=== PATIENT | male | born 1945 | race Caucasian/White ===

== ENCOUNTER → 2016-09-03 | Outpatient (CLI) | payer OTHER ==
[~2016-09-03] MED LIST: ALBU0.084 NEB; AMLO10CA PO; ASPI-231 PO; DOCU-94 PO; DUTA0.5C11 PO; FURO20TA3 PO; HYDR12.56 PO; NOR5T PO; NYS15PW TOP; POTA-167 PO; WARF3TAB20 PO; [UNRECOGNIZED DRUG - CODE] PO
[2016-09-03 09:45] LABS: Basophils # (auto) 0 uL; Basophils % (auto) 0.4 % (0.0-2.0); Eosinophils # (auto) 0.2 uL; Eosinophils % (auto) 3.3 % (0.0-7.0); Hemoglobin 14.1 g/dL (13.5-17.5); Lymphocytes # (auto) 1.1 uL; Lymphocytes % (auto) 14.6 % (10.0-50.0); Mean Corpuscular Hemoglobin 32.8 pg (28.0-32.0); Mean Corpuscular Hgb Conc. 32.8 g/dL (32.0-36.0); Mean Corpuscular Volume 99.7 fL (80.0-100.0); Mean Platelet Volume 7.2 fL (7.4-10.4); Monocytes # (auto) 0.6 uL; Monocytes % (auto) 7.6 % (0.0-12.0); Neutrophils # (auto) 5.4 uL; Neutrophils % (auto) 74.1 % (37.0-80.0); Platelet Count (auto) 232 10^3/uL (140-450); Red Cell Distribution Width 14.3 % (11.6-16.0); Urine Bilirubin Negative (Negative); Urine Blood Negative /uL (Negative); Urine Color Yellow (Yellow); Urine Glucose Normal (Normal); Urine Ketone Negative (Negative); Urine Nitrite Negative (Negative); Urine RBC <1 /hpf (0 - 3); Urine Squamous Epithelial Cell FEW /hpf (<5); Urine Urobilinogen Normal (Negative); White Blood Cell 7.4 10^3/uL (4.4-10.8)
[2016-09-03 10:09] LABS: Albumin 4.1 g/dL (3.4-5.0); BUN/Creatinine Ratio 18.2; Bilirubin, Total 0.7 mg/dL (0.2-1.0); Calcium 8.6 mg/dL (8.5-10.1); Potassium 4.8 mmol/L (3.5-5.1); Total Protein 7.3 g/dL (6.4-8.2)
== END | disposition home or self-care (01) ==
LOC: LAB 08:02
PROVIDERS: ATTEND Internal Medicine
DX: E78.00 Pure hypercholesterolemia, unspecified (principal); N18.3 Chronic kidney disease, stage 3 (moderate); I10 Essential (primary) hypertension; Z00.00 Encounter for general adult medical examination without abnormal findings
CPT/HCPCS: 36415; 80053; 80061; 81001; 83615; 84153; 84443; 85025; 85049

== ENCOUNTER → 2016-09-09 | Outpatient (CLI) | payer OTHER | END | disposition home or self-care (01) | LOC: LAB 08:53 | PROVIDERS: ATTEND Family Medicine | DX: E78.00 Pure hypercholesterolemia, unspecified (principal); N18.3 Chronic kidney disease, stage 3 (moderate); I10 Essential (primary) hypertension; Z00.00 Encounter for general adult medical examination without abnormal findings | CPT/HCPCS: 82270 ==

== ENCOUNTER → 2017-01-09 | Outpatient (CLI) | payer OTHER ==
[2017-01-09 08:24] LABS: Basophils # (auto) 0 uL; Basophils % (auto) 0.4 % (0.0-2.0); Eosinophils # (auto) 0.3 uL; Hematocrit 40.8 % (41.0-53.0); Hemoglobin 13.9 g/dL (13.5-17.5); Lymphocytes # (auto) 1.1 uL; Lymphocytes % (auto) 16.8 % (10.0-50.0); Mean Corpuscular Hemoglobin 33.6 pg (28.0-32.0); Mean Corpuscular Hgb Conc. 34.1 g/dL (32.0-36.0); Mean Corpuscular Volume 98.3 fL (80.0-100.0); Monocytes # (auto) 0.5 uL; Monocytes % (auto) 8.1 % (0.0-12.0); Neutrophils # (auto) 4.5 uL; Neutrophils % (auto) 69.7 % (37.0-80.0); Platelet Count (auto) 213 10^3/uL (140-450); Red Cell Distribution Width 13.9 % (11.6-16.0); White Blood Cell 6.4 10^3/uL (4.4-10.8)
[2017-01-09 08:33] LABS: Urine Bilirubin Negative (Negative); Urine Blood Negative /uL (Negative); Urine Color Yellow (Yellow); Urine Glucose Normal (Normal); Urine Ketone Negative (Negative); Urine Nitrite Negative (Negative); Urine RBC <1 /hpf (0 - 3); Urine Urobilinogen Normal (Negative); Urine pH 5.5 (5.0-8.0)
[2017-01-09 09:07] LABS: BUN/Creatinine Ratio 26.5; Bilirubin, Total 0.7 mg/dL (0.2-1.0); Calcium 8.6 mg/dL (8.5-10.1); Potassium 4.5 mmol/L (3.5-5.1); Total Protein 7.2 g/dL (6.4-8.2)
== END | disposition home or self-care (01) ==
LOC: LAB 07:28
DX: E11.21 Type 2 diabetes mellitus with diabetic nephropathy (principal); E11.319 Type 2 diabetes mellitus with unspecified diabetic retinopathy without macular edema; Z12.5 Encounter for screening for malignant neoplasm of prostate; Z12.11 Encounter for screening for malignant neoplasm of colon
CPT/HCPCS: 36415; 80053; 80061; 81001; 82043; 83036; 84153; 84443; 85025

== ENCOUNTER → 2017-01-15 | Outpatient (CLI) | payer OTHER ==
[~2017-01-15] MED LIST changes: +HYDR-4663 PO; -NOR5T PO
== END | disposition home or self-care (01) ==
LOC: LAB 15:50
DX: E11.21 Type 2 diabetes mellitus with diabetic nephropathy (principal); E11.319 Type 2 diabetes mellitus with unspecified diabetic retinopathy without macular edema; Z12.5 Encounter for screening for malignant neoplasm of prostate; Z12.11 Encounter for screening for malignant neoplasm of colon
CPT/HCPCS: 82270

== ENCOUNTER → 2017-02-12 | Outpatient (CLI) | payer OTHER | END | disposition home or self-care (01) | LOC: XY 08:57 | PROVIDERS: ATTEND Internal Medicine Pulmonary Disease | DX: I27.2 Other secondary pulmonary hypertension (principal); I70.0 Atherosclerosis of aorta; I51.7 Cardiomegaly; R07.9 Chest pain, unspecified; R06.02 Shortness of breath; Z95.2 Presence of prosthetic heart valve | CPT/HCPCS: 71010; 78582; A9540; A9558 ==

== ENCOUNTER → 2017-02-20 | Outpatient (CLI) | payer OTHER ==
[~2017-02-20] MED LIST changes: +ALBUTEROL SULF 2.5 MG/0.5ML(0.5%) NEB SOLN ONE
== END | disposition home or self-care (01) ==
LOC: RT 08:27
PROVIDERS: ATTEND Internal Medicine Pulmonary Disease
DX: R06.02 Shortness of breath (principal)
CPT/HCPCS: 94060; 94640

== ENCOUNTER → 2017-03-10 | Outpatient (CLI) | payer OTHER ==
[~2017-03-10] MED LIST changes: -ALBUTEROL SULF 2.5 MG/0.5ML(0.5%) NEB SOLN ONE
[2017-03-10 09:35] LABS: Allen Test Yes; Base Excess -2.2 mmol/L (-2.0-2.0); Blood 02Sat 94.5 % (96-100); Blood COHb 0.5 % (0.5-1.5); Blood MetHb 0.3 % (0.0-1.5); HCO3 21.2 mmol/L (22-26.0); HHb 5.5 % (0.0-5.0); MODE RA; O2Hb 93.7 % (94.0-97.0); PCO2 32.4 mmHg (35.0-45.0); PCO2(T) 32.4 mmHg (35.0-45.0); PO2 75.3 mmHg (80.0-100.0); PO2(T) 75.3 mmHg (80.0-100.0); Sample Type Arterial; pH 7.433 (7.350-7.450)
== END | disposition home or self-care (01) ==
LOC: RT 09:05
PROVIDERS: ATTEND Internal Medicine Pulmonary Disease
DX: J44.9 Chronic obstructive pulmonary disease, unspecified (principal)
CPT/HCPCS: 36600; 82805

== ENCOUNTER → 2018-05-01 | Outpatient (CLI) | payer OTHER ==
[~2018-05-01] MED LIST changes: -HYDR-4663 PO; +HYDR-4683 PO
[2018-05-01 08:10] LABS: Urine WBC None Seen /hpf (0 - 3)
[2018-05-01 08:27] LABS: Basophils # (auto) 0 uL; Eosinophils # (auto) 0.2 uL; Hemoglobin 14.3 g/dL (13.5-17.5); Lymphocytes # (auto) 0.4 uL; Monocytes # (auto) 0.4 uL; Neutrophils # (auto) 4.5 uL; Nucleated Red Blood Cells % 0.1 %; Urine Bacteria NONE SEEN /hpf (None Seen); Urine Blood Negative /uL (Negative)
[2018-05-01 08:29] LABS: Basophils % (auto) 0.7 % (0.0-2.0); Lymphocytes % (auto) 6.9 % (10.0-50.0); Mean Corpuscular Volume 102.8 fL (80.0-100.0); Monocytes % (auto) 7.8 % (0.0-12.0); Neutrophils % (auto) 80.6 % (37.0-80.0); Platelet Count (auto) 165 10^3/uL (140-450); Red Blood Cells 4.09 10^6/uL (4.5-5.90); Red Cell Distribution Width 14.1 % (11.8-14.3); White Blood Cell 5.6 10^3/uL (4.4-10.8)
[2018-05-01 08:34] LABS: Albumin 3.9 g/dL (3.4-5.0); BUN/Creatinine Ratio 27.4; Bilirubin, Total 0.9 mg/dL (0.2-1.0); Calcium 8.7 mg/dL (8.5-10.1); Potassium 4.8 mmol/L (3.5-5.1); Total Protein 7.9 g/dL (6.4-8.2)
[2018-05-01 09:31] LABS: Free T4 (Free Thyroxine) 1.24 ng/dL (0.89-1.76)
[2018-05-01 09:32] LABS: Free T3 2.84 pg/mL (2.3-4.2); Prostate Specific Antigen 0.12 ng/mL (0.0-4.0)
== END | disposition home or self-care (01) ==
LOC: LAB 07:48
PROVIDERS: ATTEND Family Medicine
DX: E78.5 Hyperlipidemia, unspecified (principal); I50.9 Heart failure, unspecified; E55.9 Vitamin D deficiency, unspecified
CPT/HCPCS: 36415; 80053; 80061; 81001; 82306; 84153; 84439; 84443; 84481; 85025

== ENCOUNTER → 2018-05-07 | Outpatient (CLI) | payer OTHER ==
[2018-05-07 15:53] LABS: Alcohol, Urine < 3.0 mg/dL (0-5); Amphetamine Screen, Urine NEGATIVE (NEGATIVE); Barbiturate Scree,Urine NEGATIVE (NEGATIVE); Benzodiazephine Screen, Urine NEGATIVE (NEGATIVE); Cannabinoid Screen, Urine NEGATIVE (NEGATIVE); Cocaine Screen, Urine NEGATIVE (NEGATIVE); Opiate Scree,Urine NEGATIVE (NEGATIVE); Phencyclidine Screen, Urine NEGATIVE (NEGATIVE)
== END | disposition home or self-care (01) ==
LOC: LAB 14:28
PROVIDERS: ATTEND Nurse Practitioner
DX: Z02.83 Encounter for blood-alcohol and blood-drug test (principal); I50.9 Heart failure, unspecified; J44.9 Chronic obstructive pulmonary disease, unspecified
CPT/HCPCS: 80307

== ENCOUNTER → 2018-07-24 | Outpatient (CLI) | payer OTHER, MEDICARE ==
[2018-07-24 08:50] LABS: Eosinophils # (auto) 0.2 uL; Hemoglobin 14.1 g/dL (13.5-17.5); Lymphocytes # (auto) 0.7 uL; Monocytes # (auto) 0.5 uL
[2018-07-24 08:53] LABS: Basophils # (auto) 0 uL; Basophils % (auto) 0.8 % (0.0-2.0); Eosinophils % (auto) 3.8 % (0.0-7.0); Hematocrit 41.7 % (41.0-53.0); Lymphocytes % (auto) 10.8 % (10.0-50.0); Mean Corpuscular Hemoglobin 35.1 pg (28.0-32.0); Mean Corpuscular Hgb Conc. 33.8 g/dL (32.0-36.0); Monocytes % (auto) 8.1 % (0.0-12.0); Neutrophils # (auto) 4.7 uL; Neutrophils % (auto) 76.5 % (37.0-80.0); Platelet Count (auto) 139 10^3/uL (140-450); Red Blood Cells 4.01 10^6/uL (4.5-5.90); White Blood Cell 6.1 10^3/uL (4.4-10.8)
[2018-07-24 09:51] LABS: Calcium 8.3 mg/dL (8.5-10.1); Potassium 4.7 mmol/L (3.5-5.1)
[2018-07-24 09:57] LABS: Albumin 3.9 g/dL (3.4-5.0); BUN/Creatinine Ratio 18.4; Bilirubin, Total 0.9 mg/dL (0.2-1.0); Total Protein 7.3 g/dL (6.4-8.2); Uric Acid 8.7 mg/dL (3.5-7.2)
== END | disposition home or self-care (01) ==
LOC: LAB 07:51
PROVIDERS: ATTEND Nurse Practitioner
DX: E78.5 Hyperlipidemia, unspecified (principal)
CPT/HCPCS: 36415; 80053; 80061; 82270; 83036; 84153; 84550; 85025; 85652

== ENCOUNTER → 2018-11-02 | Outpatient (CLI) | payer OTHER, MEDICARE ==
[2018-11-02 09:07] LABS: Basophils # (auto) 0 uL; Basophils % (auto) 0.9 % (0.0-2.0); Eosinophils # (auto) 0.7 uL; Lymphocytes # (auto) 0.5 uL; Monocytes # (auto) 0.6 uL; Neutrophils # (auto) 3.2 uL
[2018-11-02 09:11] LABS: Eosinophils % (auto) 13.7 % (0.0-7.0); Hematocrit 41.6 % (41.0-53.0); Hemoglobin 14.3 g/dL (13.5-17.5); Lymphocytes % (auto) 10.4 % (10.0-50.0); Mean Corpuscular Hemoglobin 36.3 pg (28.0-32.0); Mean Corpuscular Hgb Conc. 34.4 g/dL (32.0-36.0); Mean Corpuscular Volume 105.4 fL (80.0-100.0); Monocytes % (auto) 11.5 % (0.0-12.0); Neutrophils % (auto) 63.5 % (37.0-80.0); Platelet Count (auto) 144 10^3/uL (140-450); Red Blood Cells 3.94 10^6/uL (4.5-5.90); Red Cell Distribution Width 14.6 % (11.8-14.3)
[2018-11-02 09:18] LABS: Urine Bacteria NONE SEEN /hpf (None Seen); Urine Blood Negative /uL (Negative); Urine WBC <1 /hpf (0 - 3)
[2018-11-02 10:24] LABS: Potassium 4.4 mmol/L (3.5-5.1)
[2018-11-02 10:39] LABS: Albumin 4.2 g/dL (3.4-5.0); BUN/Creatinine Ratio 19.9; Calcium 8.8 mg/dL (8.5-10.1)
== END | disposition home or self-care (01) ==
LOC: LAB 08:17
PROVIDERS: ATTEND Nurse Practitioner
DX: E78.2 Mixed hyperlipidemia (principal); E11.9 Type 2 diabetes mellitus without complications
CPT/HCPCS: 36415; 80053; 80061; 81001; 82043; 83036; 85025

== ENCOUNTER → 2019-01-28 | Outpatient (CLI) | payer OTHER | END | disposition home or self-care (01) | LOC: XYW 07:25 | PROVIDERS: ATTEND Internal Medicine | DX: I07.1 Rheumatic tricuspid insufficiency (principal); I27.20 Pulmonary hypertension, unspecified; I11.0 Hypertensive heart disease with heart failure; I50.9 Heart failure, unspecified | CPT/HCPCS: 93306 ==

== ENCOUNTER → 2019-02-01 | Outpatient (CLI) | payer OTHER ==
[2019-02-01 08:56] LABS: Basophils # (auto) 0 uL; Basophils % (auto) 0.8 % (0.0-2.0); Eosinophils # (auto) 0.5 uL; Hematocrit 42.4 % (41.0-53.0); Lymphocytes # (auto) 0.6 uL; Monocytes # (auto) 0.5 uL; Platelet Count (auto) 146 10^3/uL (140-450)
[2019-02-01 09:00] LABS: Eosinophils % (auto) 10.2 % (0.0-7.0); Hemoglobin 14.6 g/dL (13.5-17.5); Lymphocytes % (auto) 10.9 % (10.0-50.0); Mean Corpuscular Hemoglobin 35.4 pg (28.0-32.0); Mean Corpuscular Hgb Conc. 34.3 g/dL (32.0-36.0); Mean Corpuscular Volume 103.4 fL (80.0-100.0); Monocytes % (auto) 10.4 % (0.0-12.0); Neutrophils # (auto) 3.5 uL; Neutrophils % (auto) 67.7 % (37.0-80.0); Nucleated Red Blood Cells % 0.4 %; Potassium 4.8 mmol/L (3.5-5.1); Red Blood Cells 4.11 10^6/uL (4.5-5.90); Red Cell Distribution Width 13.9 % (11.8-14.3); White Blood Cell 5.2 10^3/uL (4.4-10.8)
[2019-02-01 09:10] LABS: Albumin 4.2 g/dL (3.4-5.0); BUN/Creatinine Ratio 24.8; Bilirubin, Total 0.8 mg/dL (0.2-1.0); Calcium 8.9 mg/dL (8.5-10.1); Total Protein 7.9 g/dL (6.4-8.2)
[2019-02-01 17:16] LABS: Urine Bacteria NONE SEEN /hpf (None Seen); Urine Blood Negative /uL (Negative); Urine Specific Gravity 1.012 (1.001-1.035); Urine WBC <1 /hpf (0 - 3)
== END | disposition home or self-care (01) ==
LOC: LAB 07:58
PROVIDERS: ATTEND Nurse Practitioner
DX: E78.5 Hyperlipidemia, unspecified (principal); E11.9 Type 2 diabetes mellitus without complications; I11.0 Hypertensive heart disease with heart failure; I50.9 Heart failure, unspecified
CPT/HCPCS: 36415; 80053; 80061; 81001; 82043; 83036; 84153; 85025

== ENCOUNTER → 2019-02-02 | Outpatient (CLI) | payer MEDICARE, OTHER ==
[~2019-02-02] VITALS: Ht 188 cm; Wt 108.9 kg
[~2019-02-02] MED LIST changes: +ADENOSINE 91 MG in GIVE UN-DILUTED 0 ML IV STA
[2019-02-02 09:45] VITALS: BP 126/75
== END | disposition home or self-care (01) ==
LOC: XY 08:43
PROVIDERS: ATTEND Internal Medicine
DX: I12.9 Hypertensive chronic kidney disease with stage 1 through stage 4 chronic kidney disease, or unspecified chronic kidney disease (principal); N18.9 Chronic kidney disease, unspecified; I45.10 Unspecified right bundle-branch block; Z95.2 Presence of prosthetic heart valve; Z95.0 Presence of cardiac pacemaker
CPT/HCPCS: 78452; 93017; 94640; A9500; J0153; J7644

== ENCOUNTER 2019-05-20 08:39 | Inpatient (IN) | payer OTHER ==
[~2019-05-20] VITALS: Ht 188 cm; Wt 121.4 kg
[~2019-05-20 08:39] MED LIST changes: -ADENOSINE 91 MG in GIVE UN-DILUTED 0 ML IV STA; -HYDR-4683 PO; +HYDR-4833 PO
[2019-05-20 09:45] LABS: Basophils # (auto) 0 uL; Eosinophils # (auto) 0.1 uL; Lymphocytes # (auto) 0.4 uL; Lymphocytes % (auto) 5.9 % (10.0-50.0); Mean Corpuscular Volume 102.5 fL (80.0-100.0); Monocytes # (auto) 0.6 uL; Nucleated Red Blood Cells % 0.1 %
[2019-05-20 09:48] LABS: Basophils % (auto) 0.5 % (0.0-2.0); Eosinophils % (auto) 2.2 % (0.0-7.0); Hematocrit 43.3 % (41.0-53.0); Hemoglobin 14.9 g/dL (13.5-17.5); Mean Corpuscular Hemoglobin 35.2 pg (28.0-32.0); Mean Corpuscular Hgb Conc. 34.4 g/dL (32.0-36.0); Monocytes % (auto) 9.8 % (0.0-12.0); Neutrophils # (auto) 5.2 uL; Neutrophils % (auto) 81.6 % (37.0-80.0); Platelet Count (auto) 150 10^3/uL (140-450); Red Blood Cells 4.23 10^6/uL (4.5-5.90); Red Cell Distribution Width 15.1 % (11.8-14.3); White Blood Cell 6.4 10^3/uL (4.4-10.8)
[2019-05-20 10:00] LABS: BUN/Creatinine Ratio 24.9; Calcium 8.6 mg/dL (8.5-10.1); Potassium 5.4 mmol/L (3.5-5.1)
[2019-05-20 10:03] LABS: Bilirubin, Total 0.9 mg/dL (0.2-1.0); Total Protein 7.8 g/dL (6.4-8.2)
[2019-05-20] MEDS ORDERED: cefTRIAXone 1GM/50ML D5W 50 ML IV ONE (10:30)
[2019-05-20] MEDS ORDERED: SODIUM CHLORIDE 0.9% 1,000 ML IV ONE (11:00)
[2019-05-20 12:28] LABS: Urine Bacteria FEW /hpf (None Seen); Urine Blood Negative /uL (Negative); Urine Hyaline Cast FEW /lpf (0 - 2); Urine Specific Gravity 1.008 (1.001-1.035); Urine WBC 1 /hpf (0 - 3)
[2019-05-20] MEDS ORDERED: LACTULOSE 20Gm/30ML SOLN PO PRN (13:15)
[2019-05-20] MEDS ORDERED: NITROGLYCERIN 0.4 MG SL TAB SL PRN (13:15)
[2019-05-20] MEDS ORDERED: PROMETHAZINE HCL 25 MG/ML 1ML IV PRN (13:15)
[2019-05-20] MEDS ORDERED: LEVOFLOXACIN 500MG 100 ML IV ONE (13:15)
[2019-05-20] MEDS ORDERED: ALBUTEROL SULF 2.5 MG/0.5ML(0.5%) NEB SOLN NEB PRN (13:15)
[2019-05-20] MEDS ORDERED: ACETAMINOPHEN 500 MG TAB PO PRN (13:15)
[2019-05-20] MEDS ORDERED: DEXTROSE (50%) 50ML SYRG IV PRN (13:15)
[2019-05-20] MEDS ORDERED: FUROSEMIDE 20 MG/2 ML VIAL IV ONE (13:15)
[2019-05-20] MEDS ORDERED: CARVEDILOL 3.125 MG TAB PO ONE (13:15)
[2019-05-20] MEDS: MORPHINE SULFATE 4 MG/ML SYR/VIAL IV PRN (13:49)
[2019-05-20] MEDS: CLINDAMYCIN 600MG IV 50 ML IV SCH ×2 (14:28→22:17)
[2019-05-20 14:58] LABS: INR 2.6 (0.9-1.15); Partial Thromboplastin Time 37.1 sec (23.64-32.05)
[2019-05-20] MEDS: InsuLIN REG 1unit/0.01ml Soln (100units/ml) SC SCH ×2 (16:39→22:15)
[2019-05-20] MEDS: ACCU-CHEK COMFORT CURVE STRIP VI SCH ×2 (16:39→22:19)
[2019-05-20] MEDS ORDERED: WARFARIN SODIUM 1 MG TAB PO ONE (17:00)
[2019-05-20] MEDS: ALBUTEROL SULF 2.5 MG/0.5ML(0.5%) NEB SOLN NEB SCH ×2 (18:18→23:58)
[2019-05-20] MEDS: IPRATROPIUM BROM 0.5 MG/2.5ML INH SOL NEB SCH ×2 (18:18→23:58)
[2019-05-20 20:26] VITALS: BP 106/48
[2019-05-20] MEDS: DOCUSATE SOD 100 MG CAP PO SCH (22:16)
[2019-05-20] MEDS: ATORVASTATIN 20 MG TAB PO SCH (22:17)
[2019-05-20] MEDS: CARVEDILOL 3.125 MG TAB PO SCH (22:18)
[2019-05-20] MEDS: FUROSEMIDE 40 MG/4 ML VIAL IV SCH (22:18)
[2019-05-20 23:00] VITALS: BP 115/67
--- NOTE | 2019-05-20 23:00 | NUR ---
ADMITTED TO [facility] AT 2300 FROM ER. DIAGNOSIS TESTICULAR SWELLING. PLACED IN BED AND HE IMMEDIATELY INSISTED ON USING THE TOILET TO URINATE. AFTER 30 MINUTES, HE DID URINATE A SMALL AMOUNT INTO THE TOILET. SEVERE DIFFICULTY GETTING HIS STREAM STARTED. HE STOOD UP, SAT DOWN. REFUSED A GOWN. SKIN: DTI AND REDNESS IN THE GLUTEAL CLEFT. 6 SCRATCHES ON HIS ABDOMEN: HE STATED THAT HE HAD A HANG NAIL AND DIDN'T NOTICE THE DAMAGE IT WAS DOING WHILE HE WAS SCRATCHING HIS ABDOMEN. SEVERAL SMALL CIRCULAR SCABBED SPOTS ON ABDOMEN. SEVERAL ECCHYMOTIC AREAS ON ARMS. FROM THE KNEE DOWN THERE IS DEEP PURPLE HYPERPIGMENTATION. BILATERAL PITTING EDEMA ON BOTH LEGS. GROIN: SEVERE REDNESS. SCROTAL SWELLING AND PAIN. RHYTHM: STARTED WITH A RATE OF 130 AND CAME DOWN TO 99 WHEN HE RELAXED IN BED. ATRIAL FIB HISTORY AND IS THE CURRENT RHYTHM. HAS A RBBB WITH A WIDE QRS. SBP IS NORMAL. NO FEVER. STATES THAT HE TAKES NO OXYGEN AT HOME. HE WAS DYSPNIC WHEN HE USED THE WALKER GOING TO THE BATHROOM. LUNGS CLEAR. 3LNP. ABDOMEN ROUND AND SOFT. PASSED FLATUS IN THE BATHROOM BUT DOES NOT KNOW WHEN HIS LAST BM WAS. 2 20 G IVS IN THE RIGHT FOREARM.
[2019-05-21] VITALS (10 sets, daily range): BP systolic 102–141; BP diastolic 60–93
--- NOTE | 2019-05-21 01:10 | NUR ---
PICTURES OF ABDOMINAL, SCROTAL, AND SACRAL SKIN. DENIES PAIN. ATRIAL FIB. WHEN HE IS QUIET THE HR CAN GO DOWN TO 90S. WHEN HE IS MOVING IT GOES HIGH 130. WIDE QRS. SBP STABLE. TEMP LOW. BLANKETS PLACED. DRINKING WATER. VOIDED ONLY ONCE SO FAR. TRYING AGAIN. RIGHT FLANK REDNESS. SCRATCHES ON ABDOMEN. MULTIPLE SMALL SCABS ON ABDOMEN. FOLDS IN GROIN ARE RED. SCROTUM IS MODERATE SIZE. COLOR OF SCROTUM IS A DUSKY RED, SKIN IS SCALY. BILATERAL LOWER LEGS ARE PURPLE, 3+ EDEMA AND HE STATES THAT THEY ARE NOT PAINFUL. DENIES PAIN IN HIS BACK AT THIS TIME. HIS RR IS 18, BUT HE IS SHORT OF BREATH. EXERTIONAL DYSPNEA. O2 SATS ARE 94-95%. RECEIVING RESPIRATORY TREATMENTS. INFORMED TO LET US KNOW IF HE NEEDS MORE.
[2019-05-21] MEDS: MORPHINE SULFATE 4 MG/ML SYR/VIAL IV PRN (03:24)
--- NOTE | 2019-05-21 03:32 | NUR ---
PATIENT HAD TAKEN OFF HIS OXYGEN AND BROKE HIS PULSE OX. IT TOOK A FEW MINUTES BUT HE REORIENTED HIMSELF AND WAS COMPLIANT
--- NOTE | 2019-05-21 04:26 | NUR ---
UA CULTURE SENT
--- NOTE | 2019-05-21 04:41 | NUR ---
AM LABS DRAWN
[2019-05-21 05:07] LABS: Basophils # (auto) 0 uL; Lymphocytes # (auto) 0.4 uL; Monocytes # (auto) 0.4 uL; Neutrophils % (auto) 81.7 % (37.0-80.0); Nucleated Red Blood Cells % 0.1 %; White Blood Cell 5.3 10^3/uL (4.4-10.8)
[2019-05-21 05:10] LABS: Basophils % (auto) 0.6 % (0.0-2.0); Eosinophils # (auto) 0.2 uL; Eosinophils % (auto) 2.9 % (0.0-7.0); Hemoglobin 14.1 g/dL (13.5-17.5); Lymphocytes % (auto) 6.8 % (10.0-50.0); Mean Corpuscular Hemoglobin 34.9 pg (28.0-32.0); Mean Corpuscular Hgb Conc. 33.6 g/dL (32.0-36.0); Mean Corpuscular Volume 103.7 fL (80.0-100.0); Neutrophils # (auto) 4.4 uL; Platelet Count (auto) 123 10^3/uL (140-450); Red Blood Cells 4.05 10^6/uL (4.5-5.90); Red Cell Distribution Width 14.6 % (11.8-14.3)
[2019-05-21 05:17] LABS: INR 3.11 (0.9-1.15)
[2019-05-21 05:26] LABS: Albumin 3.6 g/dL (3.4-5.0); Blood Urea Nitrogen 47 mg/dL (7-18); Calcium 8.1 mg/dL (8.5-10.1); Chloride 101 mmol/L (98-107); Potassium 5.2 mmol/L (3.5-5.1); Sodium 128 mmol/L (136-145)
[2019-05-21 05:29] LABS: Alanine Aminotransferase 20 U/L (16-61); Anion Gap 8 (5-15); Aspartate Aminotransferase 26 U/L (15-37); BUN/Creatinine Ratio 24.7; Carbon Dioxide 19 mmol/L (21-32); GFR African American 45 mL/min; GFR Non-African American 37 mL/min; Glucose 100 mg/dL (74-106)
--- NOTE | 2019-05-21 05:30 | NUR ---
CHG BATH AND LINEN CHANGE
[2019-05-21 05:31] LABS: Alkaline Phosphatase 93 U/L (45-117); Bilirubin, Total 0.7 mg/dL (0.2-1.0); Total Protein 7.1 g/dL (6.4-8.2)
[2019-05-21] MEDS: CLINDAMYCIN 600MG IV 50 ML IV SCH ×3 (06:03→23:06)
[2019-05-21] MEDS: HYDROcodone-ACET 5/325MG TAB PO PRN ×2 (06:06→13:04)
[2019-05-21] MEDS: InsuLIN REG 1unit/0.01ml Soln (100units/ml) SC SCH ×4 (06:13→22:00)
[2019-05-21] MEDS: ACCU-CHEK COMFORT CURVE STRIP VI SCH ×4 (06:13→22:00)
[2019-05-21] MEDS: ALBUTEROL SULF 2.5 MG/0.5ML(0.5%) NEB SOLN NEB SCH ×3 (06:32→18:32)
[2019-05-21] MEDS: IPRATROPIUM BROM 0.5 MG/2.5ML INH SOL NEB SCH ×3 (06:32→18:32)
--- NOTE | 2019-05-21 06:32 | NUR ---
RESPIRATORY TREATMENT
--- NOTE | 2019-05-21 07:30 | NUR ---
RECEIVED PATIENT SITTING UP IN THE BED, A/O TIMES 4, O2 AT 2L BY N/C, USES THE URINAL, SALINE LOCK TOT HE RFA 20 FLUSHED AND PATENT, NO COMPLAINTS OF PAIN,
[2019-05-21] MEDS ORDERED: METO25TA5 PO (08:07)
[2019-05-21] MEDS ORDERED: METF-370 PO (08:07)
[2019-05-21] MEDS ORDERED: WARF3TAB22 PO (08:07)
--- NOTE | 2019-05-21 08:30 | NUR ---
PATIENT WAS ABLE TO SIT UP IN BED AND EAT HIS BREAKFAST, NO HELP NEEDED, APPEARS TO BE FORGETFUL
--- NOTE | 2019-05-21 09:30 | NUR ---
SITTING UP IN THE BED, WATCHING TV,
[2019-05-21] MEDS: DUTASTERIDE 0.5MG CAP PO SCH (10:00)
[2019-05-21] MEDS: LEVOFLOXACIN 500MG 100 ML IV SCH (10:10)
--- NOTE | 2019-05-21 10:10 | NUR ---
EXPLAIN MEDIATIONS TO THE PATIENT REGARDING THE DOSAGE,USAGE AND THE SIDE EFFECTS, VERBALIZED THAT HE UNDERSTANDING AND MEDS GIVEN ORDERED
[2019-05-21] MEDS: CARVEDILOL 3.125 MG TAB PO SCH ×2 (10:11→23:13)
[2019-05-21] MEDS: FUROSEMIDE 40 MG/4 ML VIAL IV SCH ×2 (10:11→23:12)
[2019-05-21] MEDS: DOCUSATE SOD 100 MG CAP PO SCH ×2 (10:12→23:12)
[2019-05-21] MEDS: ASPirin-EC 81 mg tab PO SCH (10:12)
[2019-05-21] MEDS: PANTOPRAZOLE 40 MG TAB PO SCH (10:12)
--- NOTE | 2019-05-21 11:00 | NUR ---
TALKING ON THE CELL PHONE
--- NOTE | 2019-05-21 11:45 | NUR ---
DR CUNNINGHAM IN TO SEE THE PATIENT
--- NOTE | 2019-05-21 12:00 | NUR ---
[place]. TX. HELD, DUE TO INCREASED HR OF 128.
--- NOTE | 2019-05-21 12:14 | NUR ---
DR SHEEHAN IN TO SEE THE PATIENT
--- NOTE | 2019-05-21 12:14 | NUR ---
PATIENT WAS SEEN IN THE ER BY DR ROSAS AND STATES NO INTERVENTION, ANTIBIOTICS NEEDED
--- NOTE | 2019-05-21 12:38 | NUR ---
DR GILBERT INTO SEE THE PATIENT AND ORDERED DIGOXIN 1MG IV
[2019-05-21] MEDS: DIGOXIN (250MCG/ML) 2 ML AMPULE IV SCH ×2 (12:51→13:23)
--- NOTE | 2019-05-21 13:04 | NUR ---
MEDICATED FOR PAIN TO SUSAN HIPS WITH 8/10 WITH NORCO
--- NOTE | 2019-05-21 14:00 | NUR ---
DIGOXIN GIVEN ORDERED AND HR IS NOW IN THE 115 RANGE INSTEAD OF 125 AND ABOVE
--- NOTE | 2019-05-21 14:42 | NUR ---
Nutrition Consult/assessment Notes please see attached link for complete assessment Est. Needs ABW 103 [id number] kcal (23-25 kcal/kgBW), 82-103 gms pro (0.8-1.0 gms/kgBW d/t elev RFT ckd). Will continue to monitor pertinent labs and reassess nutrient need prn Addendum: 05/21/19 at [address] Amended: Links added.
--- NOTE | 2019-05-21 15:00 | NUR ---
PATIENT HAS FINALLY WENT TO SLEEP AND HR HAS WENT DOWN A LOW TO 105 AFIB
--- NOTE | 2019-05-21 15:30 | NUR ---
NOTIFIED BY THE LAB THAT HE IS POSITIVE FOR MRSA IN THE NOSE
--- NOTE | 2019-05-21 15:59 | NUR ---
DAUGHTER BROUGHT IN PATIENTS HOME MEDS WHICH WAS SENT TO THE PHARMACY Addendum: 05/21/19 at 1603 by Rosa Scott RN DIDN'T WANT TO WAKE UP PATIENT, BECAUSE HE IS SLEEPING
--- NOTE | 2019-05-21 16:01 | NUR ---
PATIENT SITTING UP IN THE BED, EYES CLOSED APPEARS TO BE SLEEPING, HR 104
[2019-05-21] MEDS ORDERED: DICL50TA4 PO (18:06)
--- NOTE | 2019-05-21 18:22 | NUR ---
GOT UP AND TOOK HIS LEADS OFF AND WALKED TO THE BSC TO TRY AND URINATE, HR AT 120 , UNABLE TO SEE HIS SATURATION REFUSED TO KEEP THE PULSE OX ON, SALINE LOCK TIMES 2 TO THE RFA BOTH 20G FLUSHED AND PATENT,USUALLY USES THE URINAL, O2 AT 2L BY N/C, WILL CONTINUE TO MONITOR AND GIVE REPORT TO THE NEXT SHIFT
--- NOTE | 2019-05-21 18:30 | NUR ---
BACK TO THE BED , PULSE OX PLACED ON THE PATIENT AND O2 SAT 86%, CONTINUE TO MONITOR
[2019-05-21] MEDS: ATORVASTATIN 20 MG TAB PO SCH (23:12)
[2019-05-21] MEDS: TEMAZEPAM 15 MG CAP PO PRN (23:17)
[2019-05-22] MEDS: ALBUTEROL SULF 2.5 MG/0.5ML(0.5%) NEB SOLN NEB SCH ×4 (00:38→18:06)
[2019-05-22] MEDS: IPRATROPIUM BROM 0.5 MG/2.5ML INH SOL NEB SCH ×4 (00:38→18:06)
[2019-05-22 04:00] VITALS: BP 121/61
[2019-05-22 05:18] LABS: INR 3.54 (0.9-1.15)
[2019-05-22] MEDS: ACCU-CHEK COMFORT CURVE STRIP VI SCH ×4 (07:00→22:06)
[2019-05-22] MEDS: InsuLIN REG 1unit/0.01ml Soln (100units/ml) SC SCH ×4 (07:00→22:00)
--- NOTE | 2019-05-22 07:00 | NUR ---
Pt has remained stable this shift. Pt using urinal frequently due to Lasix. Still states irritation of scrotum with the swelling. Pt has turned himself this shift and has been very active in bed. Has not needed or requested pain medication. States he feels too tied down with all the lines attached to him so has also refused to wear the POM band. POM was sent to pharmacy last night. Previous POM band is at the bedside and is not being worn. Also does not like to wear BP cuff. Occasionally moves EKG leads around, always fidgeting with all lines. Report given to AM shift, care endorsed.
[2019-05-22 07:50] VITALS: BP 115/49
[2019-05-22] MEDS: CLINDAMYCIN 600MG IV 50 ML IV SCH ×3 (08:00→22:02)
--- NOTE | 2019-05-22 08:15 | NUR ---
Opening Shift Note Assumed care of patient, awake and alert. No S/S of distress/ pain. SOB on exertion, patient on 2LPM oxygen via nasal cannula, saturation 91%. See interventions for complete assessment. Bed locked on low position, side rails up x2, bed alarms on at all times, call ralph within reach, patient walk with walker at home and goes to restroom using walker this admission, instructed on POC and to call for assist PRN, will continue to monitor for changes Q1hr and PRN.
[2019-05-22 09:12] LABS: BUN/Creatinine Ratio 24.9; Calcium 8.3 mg/dL (8.5-10.1); Potassium 4.8 mmol/L (3.5-5.1)
--- NOTE | 2019-05-22 09:25 | NUR ---
Dr Bowles at bedside, updated on patient's status. Patient seen and examined. Will carry out new orders.
[2019-05-22] MEDS: FUROSEMIDE 40 MG/4 ML VIAL IV SCH ×2 (09:49→22:01)
[2019-05-22] MEDS: LEVOFLOXACIN 500MG 100 ML IV SCH (09:49)
[2019-05-22] MEDS: PANTOPRAZOLE 40 MG TAB PO SCH (09:49)
[2019-05-22] MEDS: ASPirin-EC 81 mg tab PO SCH (09:50)
[2019-05-22] MEDS: CARVEDILOL 3.125 MG TAB PO SCH ×2 (09:50→22:00)
[2019-05-22] MEDS: DUTASTERIDE 0.5MG CAP PO SCH ×2 (09:51→14:33)
[2019-05-22] MEDS: DOCUSATE SOD 100 MG CAP PO SCH ×2 (09:51→21:59)
[2019-05-22 12:00] VITALS: BP 116/58
--- NOTE | 2019-05-22 12:00 | NUR ---
Dr Rhodes at bedside, updated on patient's status. Patient seen and examined. No new orders at this time.
--- NOTE | 2019-05-22 14:08 | NUR ---
Dr Bain at bedside, updated on patient's status. Patient seen and examined. Will carry out new orders.
--- NOTE | 2019-05-22 15:00 | NUR ---
Patient complaining of bilateral hip pain, refused Pine and states "Pine never worked for me." Patient requesting to be given Diclofenac. Paged Dr Bain, awaiting call back.
--- NOTE | 2019-05-22 15:05 | NUR ---
Z-guard applied on sacrum. Patient refusing optifoam dressing.
--- NOTE | 2019-05-22 15:16 | NUR ---
[facility] pt transferred to floor SIL[facility] FRITZ transfered to Tele floor via hospital bed on diagnostic cardiac sonographer and portable 02. All patient medications and personal belongings transfered with patient to receiving floor. Patient care transfered to Johanna MEDEIROS.
[2019-05-22 17:00] VITALS: BP 123/59
[2019-05-22] MEDS ORDERED: PATIENTS OWN MEDICATION PO ONE (17:45)
--- NOTE | 2019-05-22 19:30 | NUR ---
Opening Shift Note Assumed care of patient, awake and alert oriented x4 and anxious. Patient was having shortness of breath, turn oxygen up to 4 liters. Instructed patient to keep oxygen on to keep oxygen saturation up. Patient verbalized understanding but said "I dont like having it on too much. It hurts my nose." Instructed on POC and to call for assist PRN. Bed is in lowest locked position with bed rails up x2 call light is within reach of the patient.
[2019-05-22] MEDS: MORPHINE SULF INJ 2 MG/ML SYRINGE 1ML IV PRN (20:10)
[2019-05-22 21:26] VITALS: BP 111/64
[2019-05-22] MEDS: TEMAZEPAM 15 MG CAP PO PRN (21:59)
[2019-05-22] MEDS ORDERED: DICLOFENAC 50MG PO SCH (22:00)
[2019-05-22] MEDS: ATORVASTATIN 20 MG TAB PO SCH (22:01)
[2019-05-22] MEDS: HYDROcodone-ACET 5/325MG TAB PO PRN (22:25)
[2019-05-23] MEDS: IPRATROPIUM BROM 0.5 MG/2.5ML INH SOL NEB SCH ×4 (00:03→20:27)
[2019-05-23] MEDS: ALBUTEROL SULF 2.5 MG/0.5ML(0.5%) NEB SOLN NEB SCH ×2 (00:03→05:27)
[2019-05-23] MEDS: MORPHINE SULF INJ 2 MG/ML SYRINGE 1ML IV PRN ×2 (01:01→06:28)
[2019-05-23 04:36] VITALS: BP 111/59
[2019-05-23 05:21] LABS: Basophils # (auto) 0.1 uL; Basophils % (auto) 1.2 % (0.0-2.0); Monocytes # (auto) 0.4 uL; Monocytes % (auto) 9.5 % (0.0-12.0); White Blood Cell 4.5 10^3/uL (4.4-10.8)
[2019-05-23 05:24] LABS: Eosinophils # (auto) 0.1 uL; Hematocrit 42.1 % (41.0-53.0); Lymphocytes # (auto) 0.2 uL; Lymphocytes % (auto) 5.1 % (10.0-50.0); Mean Corpuscular Hemoglobin 34.7 pg (28.0-32.0); Mean Corpuscular Hgb Conc. 33.3 g/dL (32.0-36.0); Mean Corpuscular Volume 104.2 fL (80.0-100.0); Neutrophils # (auto) 3.7 uL; Neutrophils % (auto) 81.2 % (37.0-80.0); Nucleated Red Blood Cells % 0.1 %; Platelet Count (auto) 104 10^3/uL (140-450); Red Blood Cells 4.04 10^6/uL (4.5-5.90); Red Cell Distribution Width 14.8 % (11.8-14.3)
[2019-05-23 05:31] LABS: INR 2.68 (0.9-1.15)
[2019-05-23 06:00] LABS: Potassium 4.7 mmol/L (3.5-5.1)
[2019-05-23 06:13] LABS: BUN/Creatinine Ratio 25.8; Calcium 8.3 mg/dL (8.5-10.1)
[2019-05-23] MEDS: CLINDAMYCIN 600MG IV 50 ML IV SCH (06:27)
[2019-05-23] MEDS: ACCU-CHEK COMFORT CURVE STRIP VI SCH ×4 (06:28→21:31)
[2019-05-23] MEDS: InsuLIN REG 1unit/0.01ml Soln (100units/ml) SC SCH ×4 (06:33→21:31)
--- NOTE | 2019-05-23 07:30 | NUR ---
Opening Shift Note RECEIVED REPORT FROM NOC RN. Assumed care of patient, awake and alert. PATIENT ON OXYGEN AT 4 LPM VIA NASAL CANNULA WITH no S/S of distress/SOB or pain. BED IN LOWEST, LOCKED POSITION WITH SIDERAILS UP x2 AND CALL LIGHT WITHIN REACH. Instructed on POC and to call for assist PRN, will continue to monitor for changes Q1hr and PRN.
[2019-05-23 08:05] VITALS: BP 99/69
[2019-05-23 09:00] VITALS: BP 99/69
--- NOTE | 2019-05-23 09:38 | NUR ---
PATIENT HAS POSSESSION OF HIS OWN VENTOLIN INHALER. OK PER DR. SHEEHAN. CHECK DOSAGE COUNTER EVERY 4 HOURS. INITIAL DOSAGE COUNT IS 132.
[2019-05-23] MEDS: DICLOFENAC 50 MG PO SCH ×2 (10:33→21:28)
[2019-05-23] MEDS: LEVOFLOXACIN 500 MG TAB PO SCH (10:34)
[2019-05-23] MEDS: DUTASTERIDE 0.5MG CAP PO SCH (10:34)
[2019-05-23] MEDS: DOCUSATE SOD 100 MG CAP PO SCH ×2 (10:35→21:26)
[2019-05-23] MEDS: CARVEDILOL 3.125 MG TAB PO SCH ×2 (10:35→21:25)
[2019-05-23] MEDS: PANTOPRAZOLE 40 MG TAB PO SCH (10:35)
[2019-05-23] MEDS: ASPirin-EC 81 mg tab PO SCH (10:36)
[2019-05-23] MEDS: FUROSEMIDE 20 MG TAB PO SCH (10:48)
--- NOTE | 2019-05-23 11:41 | NUR ---
PATIENT IS REFUSING PEREA CATHETER AT THIS TIME. EDUCATION GIVEN REGARDING PEREA CATHETER USE.
[2019-05-23] MEDS ORDERED: PATIENTS OWN MEDICATION PO SCH (12:00)
--- NOTE | 2019-05-23 12:31 | NUR ---
DR. GILBERT AT BEDSIDE.
--- NOTE | 2019-05-23 13:32 | NUR ---
PATIENT'S VENTOLIN DOSAGE COUNTER NOW AT 129.
[2019-05-23] MEDS: HYDROcodone-ACET 5/325MG TAB PO PRN (15:46)
[2019-05-23 16:45] VITALS: BP 130/72
[2019-05-23] MEDS ORDERED: WARFARIN SODIUM 2 MG TAB PO ONE (17:00)
[2019-05-23] MEDS: TAMSULOSIN HYDROCHLORIDE 0.4 MG CAP PO SCH (17:34)
[2019-05-23] MEDS: MAGNESIUM OXIDE 400 MG TAB PO SCH (17:34)
--- NOTE | 2019-05-23 17:50 | NUR ---
PATIENT'S VENTOLIN DOSAGE COUNTER NOW AT 126.
--- NOTE | 2019-05-23 19:30 | NUR ---
Opening Shift Note Assumed care of patient, awake and alert oriented x4. No S/S of distress/SOB noted. Bed is in lowest locked position with bed rails up x2 and call light is within reach of the patient. Instructed on POC and to call for assist PRN.
[2019-05-23 20:30] VITALS: BP 120/60
--- NOTE | 2019-05-23 20:30 | NUR ---
Respiratory note: PT PERFORMED BEDSIDE SPIROMETRY WITH GOOD EFFORT. RESULTS PENDING DUE TO NOT BEING ABLE TO PRINT RESULTS WILL NOTIFY RN AND INFORM LEAD RT.
[2019-05-23 20:56] VITALS: BP 132/71
--- NOTE | 2019-05-23 21:06 | NUR ---
Kauffman Refused: Patient had order to have Kauffman catheter inserted. Educated patient about the need to have a Kauffman catheter but patient refused stating, "Oh no I dont want that in me. Jenna tried them once before and I dont like them." Patient refused Kauffman catheter at this time.
[2019-05-23] MEDS: ATORVASTATIN 20 MG TAB PO SCH (21:24)
[2019-05-23] MEDS: AMIODARONE HCL 200 MG TAB PO SCH (21:24)
--- NOTE | 2019-05-24 00:11 | NUR ---
Patient refuses tele monitor while ambulating to the bathroom: Patient removed monitoring tech and states "Ill put it back on when I get back into bed. I dont want to carry it around while im in the restroom." Patient is annoyed, this RN educated the patient that he needs to have tele monitor on at all times but patient refused and stated he will put it back on when he goes to bed. Notified monitor technicians and will continue to monitor the patient.
[2019-05-24] MEDS: IPRATROPIUM BROM 0.5 MG/2.5ML INH SOL NEB SCH ×5 (00:39→23:55)
[2019-05-24 05:17] VITALS: BP 120/63
[2019-05-24 05:26] LABS: Basophils # (auto) 0.1 uL; Basophils % (auto) 1.4 % (0.0-2.0); Eosinophils # (auto) 0.2 uL; Hematocrit 39.5 % (41.0-53.0); Hemoglobin 13.2 g/dL (13.5-17.5); Lymphocytes # (auto) 0.2 uL; Lymphocytes % (auto) 4.8 % (10.0-50.0); Mean Corpuscular Hemoglobin 34.3 pg (28.0-32.0); Mean Corpuscular Hgb Conc. 33.4 g/dL (32.0-36.0); Mean Corpuscular Volume 102.6 fL (80.0-100.0); Monocytes # (auto) 0.4 uL; Monocytes % (auto) 8.8 % (0.0-12.0); Neutrophils # (auto) 3.8 uL; Nucleated Red Blood Cells % 0.1 %; Platelet Count (auto) 97 10^3/uL (140-450); Red Blood Cells 3.85 10^6/uL (4.5-5.90); Red Cell Distribution Width 14.7 % (11.8-14.3); White Blood Cell 4.6 10^3/uL (4.4-10.8)
[2019-05-24 05:47] LABS: Calcium 7.7 mg/dL (8.5-10.1); Potassium 4.7 mmol/L (3.5-5.1)
--- NOTE | 2019-05-24 06:15 | NUR ---
950ml of yellow clear urine drained from Kauffman bag. Hanging to gravity at the bedside.
--- NOTE | 2019-05-24 06:15 | NUR ---
GONZALEZ PLACED: Patient made this RN aware that patient had not been able to urinate all night and is uncomfortable. Asked patient again if he would like the Gonzalez and educated him on the benefits on why the MD wanted a gonzalez to be placed. After consideration patient agreed to have a Gonzalez catheter placed. 16 Kyr[place]z Gonzalez catheter placed at this time with sterile technique. Bag draining to gravity. Patient tolerated well.
[2019-05-24] MEDS: InsuLIN REG 1unit/0.01ml Soln (100units/ml) SC SCH ×4 (06:40→22:19)
[2019-05-24] MEDS: ACCU-CHEK COMFORT CURVE STRIP VI SCH ×4 (06:41→22:19)
--- NOTE | 2019-05-24 07:00 | NUR ---
Closing note: Patient is resting in bed with breaths even and unlabored. No s/s of distress sob noted. Call light within reach. Educated patient that he should not have one bed rail down for safety purposes but patient refused despite education and would like right bed rail down. Will make day RN aware.
--- NOTE | 2019-05-24 07:35 | NUR ---
Opening Note Received report from night shift supervisor RN. Patient is awake, alert and oriented x4. Patient is on room air, states he does not want the oxygen on at this time. Respirations even and unlabored. Patient has a Kauffman catheter in place, patent and draining. Patient denies pain at this time. Reviewed plan of care with patient, patient verbalized understanding. Bed in low and locked position, call light within reach. Will continue to monitor Q1 hour and PRN.
[2019-05-24 08:25] LABS: INR 1.93 (0.9-1.15)
[2019-05-24 09:06] VITALS: BP 137/79
[2019-05-24] MEDS: DOCUSATE SOD 100 MG CAP PO SCH ×2 (09:18→22:00)
[2019-05-24] MEDS: PANTOPRAZOLE 40 MG TAB PO SCH (09:19)
[2019-05-24] MEDS: FUROSEMIDE 20 MG TAB PO SCH (09:19)
[2019-05-24] MEDS: CARVEDILOL 3.125 MG TAB PO SCH ×2 (09:19→22:00)
[2019-05-24] MEDS: LEVOFLOXACIN 500 MG TAB PO SCH (09:20)
[2019-05-24] MEDS: DIGOXIN 0.125 MG TAB PO SCH (09:20)
[2019-05-24] MEDS: AMIODARONE HCL 200 MG TAB PO SCH ×2 (09:20→22:00)
[2019-05-24] MEDS: ASPirin-EC 81 mg tab PO SCH (09:20)
[2019-05-24] MEDS: DUTASTERIDE 0.5MG CAP PO SCH (09:21)
[2019-05-24] MEDS: MAGNESIUM OXIDE 400 MG TAB PO SCH ×2 (09:21→17:59)
[2019-05-24] MEDS: DICLOFENAC 50 MG PO SCH (09:22)
--- NOTE | 2019-05-24 11:30 | NUR ---
WOUND CARE NOTE: IN TO SEE PATIENT AT THIS TIME PER WOUND CARE CONSULT REQUEST. PATIENT ADMITTED TO [facility] WITH DIAGNOSIS OF HEART FAILURE, SCROTAL CELLULITIS. PATIENT HAS CURRENT BRANDI SCORE OF 16. HE IS AMBULATORY, CAN SELF TURN/REPOSITION SELF. WOUND PHOTOS WERE TAKEN UPON ADMIT, BY BEDSIDE NURSE. PATIENT HAS INTERTRIGINOUS RASH TO SCROTUM, BILATERAL UPPER MEDIAL THIGHS, HYPERPIGMENTED, ERYTHEMIC BILATERAL BUTTOCKS SKIN, INTACT LINEAR EXCORIATIONS TO THE ABDOMEN. PATIENT WOUND BENEFIT FROM BID/PRN APPLICATIONS WITH ANTIFUNGAL CLEAR TO INTERTRIGO OF SCROTUM, BILATERAL UPPER MEDIAL THIGHS, MOISTURE BARRIER CREAM TO BILATERAL BUTTOCKS,APPLICATION WITH OPTIFOAM GENTLE SACRAL DRESSING PREVENTATIVE, SCROTAL SLING FOR SCROTAL EDEMA, CONTINUED MONITORING BY WOUND CARE TEAM. Addendum: 05/24/19 at 1600 by Renata Larson RN Amended: Links added.
[2019-05-24 12:49] VITALS: BP 120/71
--- NOTE | 2019-05-24 13:05 | NUR ---
Call from DR. Easley New orders received for CT abdomen/ pelvis without contrast, and to keep the Kauffman catheter in place. Will implement new orders. Will continue to monitor Q1 hour and PRN.
--- NOTE | 2019-05-24 14:20 | NUR ---
Patient taken down for CT
--- NOTE | 2019-05-24 14:24 | NUR ---
Nutrition Follow-up Notes Wt.: 121.4 kg as of yesterday. Pt's asleep, no immediate family member at bedside during rounds this morning. Pt's no signs of distress noted earlier, currently on Consistent Carb diet with adequate PO intake aeb 100% ave. consumed meals (x6) in last 2.5 days. Noted pt's for active and Cardiology consults. Est. Needs ABW 103 [id number] kcal (23-25 kcal/kgBW), 82-103 gms pro (0.8-1.0 gms/kgBW d/t elev RFT ckd). Will continue to monitor pertinent labs and reassess nutrient need prn Labs: Gluc 116 H, NA 135 L, BUN 53 H, Cr 2.21 H, Ca 7.7 L Skin: Jules scale 16, mod risk, pt's posterior sacrum pressure injury per pan dumper. Pls refer to latest fleet director's notes for further details re: tx plans. GI: Pt had 1 BM 05/22/19 per pan dumper. PES: Altered nutrition related lab values r/t current/chronic medical condition aeb elev RFT, hypocalcemia Obesity r/t food intake more than body requirement aeb 150% IBW, BMI 34.4 kg/m2 and increased body adiposity Will continue to monitor PO intake, skin status, pertinent labs and weight trend. F/u in 3 to 5 days. Rec.: 1.) If renal labs continue trending up, consider Consistent High Carb: 75 gms/meal, Cardiac, Renal Specific: 90 gms pro, 2 gms Na diet. 2.) Consider daily MVI with minerals and Asc acid 500 mgs BID. 3.) Continue close supervision during meals. 4.) Refer pt to CDE/RD for further nutrition education and weight monitoring upon discharge. 5.) Continue current plan of care.
--- NOTE | 2019-05-24 16:00 | NUR ---
assessment Patient is a 73 year old male who is alert and oriented. Patients cognitive abilities are intact. Prior to admission patient lived home with family and functioned with assistance. Per patient he will return home to his prior living arrangements post discharge and family will transport him home. Patients PCP is Dr Meza. Patient informed me he has a fww for home use. Patients Nanci Ontiveros is his emergency contact [phone]. Patient has been admitted for sepsis. Patient may need Home health for IV ABX on discharge. Patient feels safe returning home on discharge. I informed patient he has a right to speak to a manager social services regarding all care. I informed patient he has a right to participate in any and all discharge planning. Patient does not have a POA and advanced directive. I have offered patient information on POA and advanced directives. I informed the patient the advantages and benefits of having an Advanced Directive. Patient verbalized understanding and agreed to discharge plan. Addendum: 05/24/19 at 1611 by Shayy ATKINSON Amended: Links added.
--- NOTE | 2019-05-24 16:30 | NUR ---
INOCENCIA Callaway at bedside updating patient on plan of care. No new orders received. Will continue to monitor Q1 hour and PRN.
[2019-05-24 16:55] VITALS: BP 159/89
[2019-05-24] MEDS ORDERED: WARFARIN SODIUM 2 MG TAB PO ONE (17:00)
--- NOTE | 2019-05-24 17:50 | NUR ---
Patient refusing antifungal cream at this time. Patient states he wants to wait till after dinner. Will continue to monitor Q1 hour and PRN.
[2019-05-24] MEDS: TAMSULOSIN HYDROCHLORIDE 0.4 MG CAP PO SCH (17:59)
--- NOTE | 2019-05-24 19:17 | NUR ---
Closing Note Report given to fluid pump operator RN. No signs or symptoms of distress noted at this time.
--- NOTE | 2019-05-24 19:17 | NUR ---
Opening Shift Note Assumed care of patient, awake and alert. No S/S of distress/SOB or pain. Instructed on POC and to call for assist PRN, will continue to monitor for changes Q1hr and PRN. bed in low position and call light within reach.
[2019-05-24 20:00] VITALS: BP 128/66
[2019-05-24 22:00] VITALS: BP 128/66
[2019-05-24] MEDS: ATORVASTATIN 20 MG TAB PO SCH (22:00)
--- NOTE | 2019-05-24 22:00 | NUR ---
patient requested home pain medication Diclofenac for arthritis. informed patient medication is not available, medication is on hold due to patient receiving warfarin per MD order/EMAR. Will medicate patient per protocol.
[2019-05-24] MEDS: MORPHINE SULF INJ 2 MG/ML SYRINGE 1ML IV PRN (22:01)
--- NOTE | 2019-05-24 22:19 | NUR ---
PATIENT REFUSED OPTIFOAM. EDUCATED PATIENT ON WHY OPTIFOAM IS NECESSARY. PATIENT STILL REFUSED.
--- NOTE | 2019-05-24 22:19 | NUR ---
informed patient that i will assist him with applying antifungal cream and barrier cream. Per patient he has applied antifungal cream and barrier cream to necessary areas himself.
[2019-05-25] MEDS: MORPHINE SULF INJ 2 MG/ML SYRINGE 1ML IV PRN ×3 (04:13→21:53)
--- NOTE | 2019-05-25 04:30 | NUR ---
IV PATIENT REFUSED PLACEMENT OF NEW IV. EDUCATED PATIENT ABOUT HOSPITAL POLICY AND PLACEMENT OF IV. PATIENT REFUSED.
[2019-05-25] MEDS: IPRATROPIUM BROM 0.5 MG/2.5ML INH SOL NEB SCH ×3 (05:38→20:27)
[2019-05-25 05:49] VITALS: BP 130/65
[2019-05-25 06:26] LABS: INR 1.97 (0.9-1.15)
[2019-05-25] MEDS: ACCU-CHEK COMFORT CURVE STRIP VI SCH ×4 (06:59→21:59)
[2019-05-25] MEDS: InsuLIN REG 1unit/0.01ml Soln (100units/ml) SC SCH ×4 (06:59→21:59)
--- NOTE | 2019-05-25 07:24 | NUR ---
report given to lynette granda
--- NOTE | 2019-05-25 07:50 | NUR ---
Opening Shift Note Assumed care of patient. Alert and oriented x4. patient sitting up in bed eating breakfast. No signs of distress noted. The plan of care was explained to patient and he verbalized understanding. Bed in lowest position, bed rails up x2, call light in reach. Will continue to monitor.
--- NOTE | 2019-05-25 08:45 | NUR ---
Patient refusal of jock strap when ordering jock strap, patient refused. patient was educated on the reason for the order and verbalized understanding but continued to refuse.
[2019-05-25 09:00] VITALS: BP 134/56
[2019-05-25] MEDS: MAGNESIUM OXIDE 400 MG TAB PO SCH ×2 (09:41→17:07)
[2019-05-25] MEDS: DOCUSATE SOD 100 MG CAP PO SCH ×2 (09:42→22:00)
[2019-05-25] MEDS: AMIODARONE HCL 200 MG TAB PO SCH ×2 (09:42→22:10)
[2019-05-25] MEDS: DUTASTERIDE 0.5MG CAP PO SCH (09:42)
[2019-05-25] MEDS: FUROSEMIDE 20 MG TAB PO SCH (09:43)
[2019-05-25] MEDS: CARVEDILOL 3.125 MG TAB PO SCH ×2 (09:43→22:35)
[2019-05-25] MEDS: ASPirin-EC 81 mg tab PO SCH (09:43)
[2019-05-25] MEDS: LEVOFLOXACIN 500 MG TAB PO SCH (09:44)
[2019-05-25] MEDS: PANTOPRAZOLE 40 MG TAB PO SCH (09:44)
--- NOTE | 2019-05-25 11:52 | NUR ---
Dr Alejandre at bedside Dr. Alejandre at bedside assessing patient. Orders received to continue diuretic therapy.
[2019-05-25 13:04] VITALS: BP 123/66
--- NOTE | 2019-05-25 14:00 | NUR ---
PATIENT REPORT THAT HE IS WALKING FINE AND DOES NOT NEED P.T.
[2019-05-25] MEDS ORDERED: WARFARIN SODIUM 5 MG TAB PO ONE (17:00)
[2019-05-25 17:03] VITALS: BP 145/92
[2019-05-25] MEDS: TAMSULOSIN HYDROCHLORIDE 0.4 MG CAP PO SCH (17:04)
--- NOTE | 2019-05-25 18:37 | NUR ---
PATIENT ROUNDS PATIENT SITTING ON THE SIDE OF THE BED, WAITING FOR TRANSPORTATION BUTTONHOLE MAKER HAND TO ARRIVE FOR DISCHARGE HOME. NO S/S OF DISTRESS OR SOB, NO PAIN NOTED OR REPORTED. DINNER TRAY PROVIDED. WILL ENDORSE CARE TO COOLING PIPE INSPECTOR RN. Addendum: 05/25/19 at 1839 by Ashley Calderón, RN INCORRECT NOTE, PATIENT IS NOT BEING DISCHARGED TODAY. CORRECT NOTE: PATIENT ROUNDS PATIENT IS RESTING IN BED WATCHING TELEVISION, NO S/S OF DISTRESS OR SOB, NO PAIN NOTED OR REPORTED. DINNER TRAY PROVIDED. WILL ENDORSE CARE TO COOLING PIPE INSPECTOR RN.
--- NOTE | 2019-05-25 19:05 | NUR ---
Opening Shift Note Assumed care of patient, awake and alert. No S/S of distress/SOB or pain. Instructed on POC and to call for assist PRN, will continue to monitor for changes Q1hr and PRN. informed patient transportation will be arriving soon for pickle sorter. Addendum: 05/25/19 at 1926 by MAURO FISHER RN RN disregard note of transportation pickle sorter.
--- NOTE | 2019-05-25 19:40 | NUR ---
received call from [facility] that patient HR is 140. Present with patient in the room assisting him to the restroom. patient is asymptomatic reports no signs of distress or pain. patient has has previous episodes of tachycardia when ambulating to the restroom.
--- NOTE | 2019-05-25 19:42 | NUR ---
linens changed. provided patient with new blankets. assisted patient back in bed. bed in low position and call light within reach. patient verbalized he refuses jock strap. assisted patient to elevate scrotum onto a towel.
[2019-05-25 22:00] VITALS: BP 120/60
[2019-05-25] MEDS: ATORVASTATIN 20 MG TAB PO SCH (22:11)
[2019-05-26] MEDS: IPRATROPIUM BROM 0.5 MG/2.5ML INH SOL NEB SCH ×4 (00:20→19:48)
--- NOTE | 2019-05-26 01:12 | NUR ---
Per patient he has applied antifungal cream and barrier cream himself, to necessary areas.
[2019-05-26 05:00] VITALS: BP 121/68
[2019-05-26 05:30] LABS: Basophils # (auto) 0 uL; Basophils % (auto) 0.4 % (0.0-2.0); Eosinophils # (auto) 0.3 uL; Eosinophils % (auto) 4.6 % (0.0-7.0); Hematocrit 39.9 % (41.0-53.0); Hemoglobin 13.7 g/dL (13.5-17.5); Lymphocytes # (auto) 0.3 uL; Lymphocytes % (auto) 5.5 % (10.0-50.0); Mean Corpuscular Hemoglobin 34.8 pg (28.0-32.0); Mean Corpuscular Hgb Conc. 34.2 g/dL (32.0-36.0); Mean Corpuscular Volume 101.5 fL (80.0-100.0); Monocytes # (auto) 0.6 uL; Monocytes % (auto) 9.8 % (0.0-12.0); Neutrophils # (auto) 4.7 uL; Neutrophils % (auto) 79.7 % (37.0-80.0); Platelet Count (auto) 96 10^3/uL (140-450); Red Blood Cells 3.93 10^6/uL (4.5-5.90); Red Cell Distribution Width 14.9 % (11.8-14.3); White Blood Cell 5.8 10^3/uL (4.4-10.8)
[2019-05-26 05:48] LABS: BUN/Creatinine Ratio 23.5; Calcium 8.4 mg/dL (8.5-10.1); Potassium 4.5 mmol/L (3.5-5.1)
[2019-05-26] MEDS: ACCU-CHEK COMFORT CURVE STRIP VI SCH ×4 (06:51→21:09)
[2019-05-26] MEDS: InsuLIN REG 1unit/0.01ml Soln (100units/ml) SC SCH ×4 (06:51→21:10)
--- NOTE | 2019-05-26 07:14 | NUR ---
Report given to dayshift RN. Endorsed care to RN that patient is requesting medication for, per patient "congestion"
--- NOTE | 2019-05-26 07:20 | NUR ---
Assumed care of patient. Not signs or symptoms of distress noted. patient updated on plan of care and verbalized understanding. bed in lowest position, side rails up x2, call light in reach
[2019-05-26] MEDS: MORPHINE SULF INJ 2 MG/ML SYRINGE 1ML IV PRN (08:08)
[2019-05-26] MEDS: MAGNESIUM OXIDE 400 MG TAB PO SCH (08:09)
[2019-05-26 09:00] VITALS: BP 135/66
[2019-05-26] MEDS ORDERED: FUROSEMIDE 40 MG/4 ML VIAL IV SCH (10:00)
[2019-05-26] MEDS: CARVEDILOL 3.125 MG TAB PO SCH ×2 (10:25→21:09)
[2019-05-26] MEDS: DUTASTERIDE 0.5MG CAP PO SCH (10:25)
[2019-05-26] MEDS: PANTOPRAZOLE 40 MG TAB PO SCH (10:25)
[2019-05-26] MEDS: DOCUSATE SOD 100 MG CAP PO SCH ×2 (10:25→21:09)
[2019-05-26] MEDS: AMIODARONE HCL 200 MG TAB PO SCH (10:26)
[2019-05-26] MEDS: ASPirin-EC 81 mg tab PO SCH (10:26)
[2019-05-26] MEDS: LEVOFLOXACIN 500 MG TAB PO SCH (10:26)
[2019-05-26] MEDS: DIGOXIN 0.125 MG TAB PO SCH (10:26)
[2019-05-26] MEDS: FLUTICASONE PROP NASAL SPR 0.05 % (50MCG) 16GM EACHNOSTRI SCH ×2 (10:54→21:09)
[2019-05-26 13:00] VITALS: BP 129/75
--- NOTE | 2019-05-26 15:39 | NUR ---
Spoke with Dr. Alejandre Patient requesting Kauffman catheter to be removed. Dr. Alejandre gave orders to remove catheter at this time, if patient is unable to void after removal, catheter will need to be reinserted. Will follow through with orders.
--- NOTE | 2019-05-26 15:51 | NUR ---
Kauffman catheter dc'd Order to discontinue Kauffman catheter. Kauffman dc'd with clean technique following deflation of balloon. Patient tolerated well with no complaints of pain. Informed patient if there is no urine output after removal that catheter will need to be reinserted, patient verbalized understanding. Continue care.
[2019-05-26 17:00] VITALS: BP 125/76
[2019-05-26] MEDS ORDERED: WARFARIN SODIUM 5 MG TAB PO ONE (17:00)
[2019-05-26] MEDS: TAMSULOSIN HYDROCHLORIDE 0.4 MG CAP PO SCH (17:01)
[2019-05-26] MEDS: FUROSEMIDE 40 MG/4 ML VIAL IV SCH (17:07)
--- NOTE | 2019-05-26 18:47 | NUR ---
Patient Rounds Patient resting in bed watching television, no s/s of distress, no pain reported or noted at this time. Will endorse care to night worker RN.
--- NOTE | 2019-05-26 19:40 | NUR ---
OPENING SHIFT NOTE RECEIVED REPORT FROM HENRRY RN. PATIENT SITTING UP IN BED ATTEMPTING TO URINATE IN URINAL. PATIENT A/O X4, AMBULATORY WITH ASSIST. NO S/S OF DISTRESS OR SOB. NO PAIN NOTED OR REPORTED AT THIS TIME. CONTACT ISOLATION PRECAUTIONS IN PLACE. PATIENT STATES "I AM HAVING TROUBLE PEEING IN THIS THING." EDUCATED PATIENT ON IMPORTANCE OF PEREA CATHETER REINSERTION TO RELIEVE RETENTION. PATIENT STATES, "I WILL NOT HAVE ANOTHER ONE OF THOSE THINGS PUT BACK IN ME AND YOU CAN'T MAKE ME. I WILL NEVER HAVE ONE OF THOSE EVER AGAIN. THIS AIN'T MY FIST RODEO. I HAVE GONE THROUGH THIS MORE TIMES THAN YOU CAN COUNT SO JUST GIVE ME A PILL TO HELP ME PEE." INFORMED PATIENT I WILL NOTIFY HOSPITALIST AND THAT MD WILL MORE THAN LIKELY ORDER FOR CATHETER TO BE REINSERTED, PATIENT VERBALIZED UNDERSTANDING AND CONTINUES TO REFUSE. BED LOCKED IN LOW POSITION, CALL LIGHT WITHIN REACH. WILL CONTINUE TO MONITOR PATIENT Q1HR AND PRN.
[2019-05-26 20:36] VITALS: BP 125/76
[2019-05-26] MEDS: ATORVASTATIN 20 MG TAB PO SCH (21:09)
[2019-05-26 21:30] VITALS: BP 138/84
[2019-05-27] MEDS: IPRATROPIUM BROM 0.5 MG/2.5ML INH SOL NEB SCH ×3 (00:33→12:40)
[2019-05-27 04:40] VITALS: BP 135/56
[2019-05-27 05:43] LABS: Basophils # (auto) 0 uL; Eosinophils # (auto) 0.2 uL; Hemoglobin 13.8 g/dL (13.5-17.5); Lymphocytes # (auto) 0.3 uL; Nucleated Red Blood Cells % 0.1 %; White Blood Cell 5.7 10^3/uL (4.4-10.8)
[2019-05-27 05:46] LABS: Basophils % (auto) 0.6 % (0.0-2.0); Eosinophils % (auto) 3.3 % (0.0-7.0); Hematocrit 40.2 % (41.0-53.0); Lymphocytes % (auto) 4.6 % (10.0-50.0); Mean Corpuscular Hgb Conc. 34.2 g/dL (32.0-36.0); Mean Corpuscular Volume 102.3 fL (80.0-100.0); Monocytes # (auto) 0.6 uL; Monocytes % (auto) 10.4 % (0.0-12.0); Neutrophils # (auto) 4.6 uL; Neutrophils % (auto) 81.1 % (37.0-80.0); Platelet Count (auto) 89 10^3/uL (140-450); Red Blood Cells 3.93 10^6/uL (4.5-5.90); Red Cell Distribution Width 14.6 % (11.8-14.3)
[2019-05-27 05:50] LABS: INR 2.1 (0.9-1.15)
[2019-05-27 05:57] LABS: Calcium 8.5 mg/dL (8.5-10.1); Potassium 4.2 mmol/L (3.5-5.1)
[2019-05-27] MEDS: FUROSEMIDE 40 MG/4 ML VIAL IV SCH (06:42)
[2019-05-27] MEDS: ACCU-CHEK COMFORT CURVE STRIP VI SCH ×2 (06:42→11:30)
[2019-05-27] MEDS: InsuLIN REG 1unit/0.01ml Soln (100units/ml) SC SCH ×2 (06:42→11:30)
[2019-05-27] MEDS: MORPHINE SULF INJ 2 MG/ML SYRINGE 1ML IV PRN (06:50)
[2019-05-27 08:00] VITALS: BP 123/68
[2019-05-27 09:02] VITALS: BP 123/68
[2019-05-27] MEDS: LEVOFLOXACIN 500 MG TAB PO SCH (09:35)
[2019-05-27] MEDS: PANTOPRAZOLE 40 MG TAB PO SCH (09:35)
[2019-05-27] MEDS: DOCUSATE SOD 100 MG CAP PO SCH (09:35)
[2019-05-27] MEDS: ASPirin-EC 81 mg tab PO SCH (09:36)
[2019-05-27] MEDS: CARVEDILOL 3.125 MG TAB PO SCH (09:36)
[2019-05-27] MEDS: DUTASTERIDE 0.5MG CAP PO SCH (09:36)
[2019-05-27] MEDS: FLUTICASONE PROP NASAL SPR 0.05 % (50MCG) 16GM EACHNOSTRI SCH (10:00)
--- NOTE | 2019-05-27 10:45 | NUR ---
Dr. Dawknis in to see patient as hospitalist.
[2019-05-27 11:02] VITALS: BP 123/68
--- NOTE | 2019-05-27 14:01 | NUR ---
Discharge instructions given as ordered. Encourage to follow up with PMD as instructed. All questions and concerns addressed. Patient verbalized understanding. Medication reconciliation form completed and copy given to patient. Home medications held in Pharmacy returned to patient. IV removed with catheter intact, pressure dressing applied. Telemetry unit returned to ICU. Patient refused pictures to be taken of buttocks Patient taken to vehicle via wheelchair with all personal belongings, accompanied by staff and family member. No distress noted at time of departure.
[2019-05-27] MEDS ORDERED: WARFARIN SODIUM 2 MG TAB PO ONE (17:00)
== END 2019-05-27 14:00 | disposition home or self-care (01) | DRG 871 ==
LOC: ER 08:39 → TELE 08:40 → DOU IN ICU 23:36 → CENTRAL 05-22 15:23 → TELE-CENTR 05-22 15:27
PROVIDERS: ADMIT Internal Medicine; ATTEND Internal Medicine Pulmonary Disease
PROC: 4B02XSZ Measurement of Cardiac Pacemaker, External Approach (ICD-10-PCS; principal; 2019-05-20)
DX: A41.9 Sepsis, unspecified organism (principal); I50.43 Acute on chronic combined systolic (congestive) and diastolic (congestive) heart failure; I13.0 Hypertensive heart and chronic kidney disease with heart failure and stage 1 through stage 4 chronic kidney disease, or unspecified chronic kidney disease; E87.1 Hypo-osmolality and hyponatremia; L03.119 Cellulitis of unspecified part of limb; I48.92 Unspecified atrial flutter; I45.2 Bifascicular block; N17.9 Acute kidney failure, unspecified; N18.3 Chronic kidney disease, stage 3 (moderate); I48.91 Unspecified atrial fibrillation; I45.10 Unspecified right bundle-branch block; I25.2 Old myocardial infarction; E11.21 Type 2 diabetes mellitus with diabetic nephropathy; E11.22 Type 2 diabetes mellitus with diabetic chronic kidney disease; E78.5 Hyperlipidemia, unspecified; F12.90 Cannabis use, unspecified, uncomplicated; J44.9 Chronic obstructive pulmonary disease, unspecified; N40.0 Benign prostatic hyperplasia without lower urinary tract symptoms; N50.89 Other specified disorders of the male genital organs; Z95.2 Presence of prosthetic heart valve; E66.01 Morbid (severe) obesity due to excess calories; E87.5 Hyperkalemia; M16.11 Unilateral primary osteoarthritis, right hip; N40.1 Benign prostatic hyperplasia with lower urinary tract symptoms; R33.8 Other retention of urine; Z79.899 Other long term (current) drug therapy; Z82.49 Family history of ischemic heart disease and other diseases of the circulatory system; Z87.891 Personal history of nicotine dependence; M19.90 Unspecified osteoarthritis, unspecified site
CPT/HCPCS: 36415; 71045; 74176; 76775; 76870; 80048; 80053; 81001; 82550; 82962; 83036; 83735; 83880; 84443; 84484; 85025; 85610; 85652; 85730; 87081; 87086; 93005; 94640; 96365; 96366; 96367; 96375; G0378; J0696; J1815; J1956; J3490

== ENCOUNTER 2019-06-07 06:17 | Inpatient (IN) | payer OTHER ==
[~2019-06-07] VITALS: Ht 188 cm; Wt 122.0 kg
[~2019-06-07 06:17] MED LIST changes: +DICL50TA4 PO; -HYDR-4833 PO; -HYDR12.56 PO; +METO25TA5 PO; -NYS15PW TOP; -WARF3TAB20 PO; +WARF3TAB22 PO; -[UNRECOGNIZED DRUG - CODE] PO
[2019-06-07] MEDS ORDERED: ASPirin 81 mg TAB PO ONE (06:45)
[2019-06-07 07:08] LABS: Basophils # (auto) 0 uL; Basophils % (auto) 0.6 % (0.0-2.0); Eosinophils # (auto) 0.1 uL; Lymphocytes # (auto) 0.3 uL; Neutrophils # (auto) 4.8 uL; White Blood Cell 5.8 10^3/uL (4.4-10.8)
[2019-06-07 07:12] LABS: Eosinophils % (auto) 1.1 % (0.0-7.0); Hematocrit 33.8 % (41.0-53.0); Hemoglobin 11.5 g/dL (13.5-17.5); Lymphocytes % (auto) 5.8 % (10.0-50.0); Mean Corpuscular Volume 102.9 fL (80.0-100.0); Monocytes # (auto) 0.6 uL; Monocytes % (auto) 9.6 % (0.0-12.0); Neutrophils % (auto) 82.9 % (37.0-80.0); Platelet Count (auto) 141 10^3/uL (140-450); Red Blood Cells 3.29 10^6/uL (4.5-5.90); Red Cell Distribution Width 15.9 % (11.8-14.3)
[2019-06-07 07:29] LABS: Albumin 3.7 g/dL (3.4-5.0); BUN/Creatinine Ratio 19.5; Calcium 8.2 mg/dL (8.5-10.1); Potassium 4.5 mmol/L (3.5-5.1)
[2019-06-07 07:34] LABS: Total Protein 6.9 g/dL (6.4-8.2)
[2019-06-07] MEDS ORDERED: NITROGLYCERIN 0.4 MG SL TAB SL PRN (09:15)
[2019-06-07] MEDS ORDERED: ACETAMINOPHEN 500 MG TAB PO PRN (09:15)
[2019-06-07] MEDS ORDERED: cefTRIAXone 1GM/50ML D5W 50 ML IV ONE (09:15)
[2019-06-07] MEDS ORDERED: ONDANSETRON HCL 4 MG/2 ML VIAL IV PRN (09:15)
[2019-06-07] MEDS ORDERED: DOCUSATE SOD 100 MG CAP PO PRN (09:15)
[2019-06-07] MEDS ORDERED: ALBUTEROL SULF 2.5 MG/0.5ML(0.5%) NEB SOLN NEB PRN (09:15)
[2019-06-07] MEDS ORDERED: IPRATROPIUM BROM 0.5 MG/2.5ML INH SOL NEB PRN (09:15)
[2019-06-07] MEDS ORDERED: MORPHINE SULF INJ 2 MG/ML SYRINGE 1ML IV PRN (09:15)
[2019-06-07] MEDS: FAMOTIDINE 20 MG TAB PO SCH (09:42)
[2019-06-07] MEDS: METOPROLOL TARTRATE 25 MG TAB PO SCH (09:43)
[2019-06-07] MEDS: FUROSEMIDE 20 MG TAB PO SCH (09:43)
[2019-06-07] MEDS: MORPHINE SULF INJ 2 MG/ML SYRINGE 1ML IV PRN (09:44)
[2019-06-07] MEDS ORDERED: ASPI-404 PO (10:07)
[2019-06-07] MEDS ORDERED: DICL50TA4 PO (10:07)
[2019-06-07] MEDS ORDERED: DIGO1TAB35 PO (10:07)
[2019-06-07] MEDS ORDERED: AMIO100T3 OR (10:07)
[2019-06-07] MEDS ORDERED: VALS320T15 PO (10:07)
[2019-06-07] MEDS ORDERED: TAMS0.4C36 PO (10:07)
--- NOTE | 2019-06-07 10:32 | NUR ---
PT ADMITTED TO [facility] PER SUBHA FROM ER ACCOMPANIED BY ER STAFF AND PT'S DAUGHTER. PT NOTED TO BE AAOX4 AND VOICED NO C/O PAIN AT THIS TIME PT WAS MEDICATED BY SLUDGE CONTROL OPERATOR PRIOR TO TRANSFER. REPORT RECEIVED BY PHONE FROM SLUDGE CONTROL OPERATOR PRIOR TO PT'S ADMISSION. PT ORIENTATED TO STAFF, UNIT AND ROUTINE AND PT VERBALIZED UNDERSTANDING. ADMISSION ASSESSMENT DONE AND CHARTED. NARES SWAB OBTAINED AND SENT TO LAB FOR MRSA SCREEN. PT WITH PEREA CATHETER DRAINING CLEAR [place] URINE. SCROTUM, PENILE AREA NOTED TO BE RED AND EDEMATOUS. BRUSING ALSO NOTED IN HIS LOWER ABDOMEN AND LT LOWER ABDOMEN, SIDE AND PART OF BACK NOTED TO BE RED BUT INTACT. PT ON TELE#6 AFIB . WILL CONTINUE TO MONITOR PT.
[2019-06-07 13:00] VITALS: BP 117/60
[2019-06-07 15:05] VITALS: BP 117/60
[2019-06-07 15:07] LABS: INR > 8.0 (0.9-1.15); Partial Thromboplastin Time 54.1 sec (23.64-32.05)
[2019-06-07] MEDS: traMADol HCL 50 MG TAB PO PRN (16:13)
[2019-06-07 17:00] VITALS: BP 116/73
[2019-06-07 21:33] VITALS: BP 132/62
[2019-06-07] MEDS: CLOTRIMAZOLE 1 % CREAM 15GM TOP SCH (22:00)
--- NOTE | 2019-06-07 22:36 | NUR ---
Respiratory note: ASSESSED PT FOR PRN MED NEB TX. PT IS CURRENTLY ON ROOM AIR: HR 73, RR 16, SPO2 94%. PT SHOWS NO S/S OF SOB OR RESPIRATORY DISTRESS. MED NEB TX NOT INDICATED AT THIS TIME. PT AWARE TO CALL FOR RESPIRATORY OF SOB OCCURS. WILL CONTINUE TO MONITOR.
[2019-06-08 04:47] VITALS: BP 119/69
--- NOTE | 2019-06-08 08:10 | NUR ---
PT RESTING IN BED AND REPORTS 10/10 PAIN IN LOWER ABDOMEN. ABDOMEN FIRM ON PALPATION WITH MODERATE ECCHYMOSIS. SEVERE SCROTAL SWELLING NOTED. MILD RASH NOTED ON MARIANA AREA AND BUTTOCKS. PILLOW CASES PLACED AROUND SCROTUM, WILL APPLY Z BARBARA PETE CHANGED. 250 MLS HAZY YELLOW URINE NOTED IN PEREA. PT REFUSING TO WEAR GOWN AT THIS TIME. PT EDUCATED TO USE CALL LIGHT PRN, WILL CONTINUE TO MONITOR.
[2019-06-08 08:30] VITALS: BP 114/59
[2019-06-08] MEDS: MORPHINE SULF INJ 2 MG/ML SYRINGE 1ML IV PRN ×3 (09:13→22:16)
--- NOTE | 2019-06-08 09:13 | NUR ---
PRN PAIN MEDICATION GIVEN. Z GUARD APPLIED TO SCROTAL AREA AND FRESH PILLOW CASES PLACED AROUND SCROTUM.
--- NOTE | 2019-06-08 10:00 | NUR ---
CALLED PHARMACY, UNABLE TO FIND LOTRIMIN CREAM IN PT CASSETTE AND AT BEDSIDE, PHARMACY REPORTS THEY WILL SEND MORE.
[2019-06-08] MEDS: FAMOTIDINE 20 MG TAB PO SCH (10:19)
[2019-06-08] MEDS: FUROSEMIDE 20 MG TAB PO SCH (10:20)
[2019-06-08] MEDS: METOPROLOL TARTRATE 25 MG TAB PO SCH (10:20)
[2019-06-08] MEDS: cefTRIAXone 1GM/50ML D5W 50 ML IV SCH (10:21)
[2019-06-08] MEDS: CLOTRIMAZOLE 1 % CREAM 15GM TOP SCH ×3 (10:26→22:07)
--- NOTE | 2019-06-08 11:54 | NUR ---
LOTRIMIN CREAM APPLIED TO PATIENT. DR NICHOLSON SAW PATIENT.
[2019-06-08 12:30] VITALS: BP 102/56
[2019-06-08 12:36] LABS: Basophils # (auto) 0 uL; Hemoglobin 12.2 g/dL (13.5-17.5); Lymphocytes # (auto) 0.3 uL; Monocytes # (auto) 0.7 uL; Neutrophils # (auto) 6.8 uL; Neutrophils % (auto) 85.3 % (37.0-80.0)
[2019-06-08 12:37] LABS: Basophils % (auto) 0.6 % (0.0-2.0); Eosinophils # (auto) 0.1 uL; Eosinophils % (auto) 1.8 % (0.0-7.0); Hematocrit 36.8 % (41.0-53.0); Lymphocytes % (auto) 3.4 % (10.0-50.0); Mean Corpuscular Hemoglobin 34.4 pg (28.0-32.0); Mean Corpuscular Hgb Conc. 33.2 g/dL (32.0-36.0); Mean Corpuscular Volume 103.5 fL (80.0-100.0); Monocytes % (auto) 8.9 % (0.0-12.0); Platelet Count (auto) 165 10^3/uL (140-450); Red Blood Cells 3.56 10^6/uL (4.5-5.90)
[2019-06-08 12:40] LABS: Urine Amorphous Crystal FEW /hpf (None Seen); Urine Bacteria NONE SEEN /hpf (None Seen); Urine Blood 3+ /uL (Negative); Urine Specific Gravity 1.018 (1.001-1.035); Urine WBC 78 /hpf (0 - 3)
--- NOTE | 2019-06-08 12:44 | NUR ---
PATIENT PASSWORD UPDATED AND URINE SAMPLE SENT TO LAB PER DR NICHOLSON REQUEST. Addendum: 06/08/19 at 1637 by MIRACLE LLANES RN APPROX 200 MLS YELLOW HAZY URINE NOTED IN PEREA.
[2019-06-08 13:01] LABS: Partial Thromboplastin Time 51.3 sec (23.64-32.05)
[2019-06-08 13:04] LABS: Albumin 3.6 g/dL (3.4-5.0); BUN/Creatinine Ratio 19.7; Calcium 8.4 mg/dL (8.5-10.1); Magnesium 2.2 mg/dL (1.6-2.6); Potassium 4.7 mmol/L (3.5-5.1)
[2019-06-08 13:07] LABS: Bilirubin, Total 1.5 mg/dL (0.2-1.0); Total Protein 7.1 g/dL (6.4-8.2)
[2019-06-08 13:09] LABS: INR 6.12 (0.9-1.15)
--- NOTE | 2019-06-08 13:09 | NUR ---
LAB CALLED, PT INR IS 6.12.CALLED PBX AND PAGED DR NICHOLSON TO NOTIFY
--- NOTE | 2019-06-08 13:36 | NUR ---
DR NICHOLSON CALLED BACK, REPORTED INR 6.12, REPORTS HE IS ALREADY AWARE. Addendum: 06/08/19 at 1617 by MIRACLE LLANES RN REPORTS HE MAY PUT IN ORDERS FOR VITAMIN K.
--- NOTE | 2019-06-08 16:17 | NUR ---
CALLED PBX AND PAGED DR NICHOLSON TO CLARIFY VITAMIN K ORDERS. AWAITING CALL BACK.
[2019-06-08 16:49] VITALS: BP 107/56
[2019-06-08] MEDS ORDERED: PHYTONADIONE (VitK) ORAL Susp 1 MG/ML PO ONE (17:00)
--- NOTE | 2019-06-08 19:00 | NUR ---
Opening Shift Note Assumed care of patient, awake and alert. No S/S of distress/SOB or pain. Patient instructed on POC and to call for assistance as needed. Bed is locked in lowest position with side rails up x2 for safety and call light within reach. Will continue to monitor for changes Q1hr and PRN.
--- NOTE | 2019-06-08 19:22 | NUR ---
Respiratory note: At bedside to assess for prn tx, tx not indicated at this time. BS are clear/diminished t/o, [id number]. rr 14-16, pox 92% on RA. RT name and pager assignment written on pts room board. Will continue to monitor as needed.
[2019-06-08 22:22] VITALS: BP 132/71
[2019-06-09 05:15] VITALS: BP 128/69
[2019-06-09 06:32] LABS: Basophils # (auto) 0 uL; Basophils % (auto) 0.6 % (0.0-2.0); Eosinophils # (auto) 0.2 uL; Hemoglobin 11.7 g/dL (13.5-17.5); Lymphocytes # (auto) 0.3 uL; Monocytes # (auto) 0.6 uL; Monocytes % (auto) 9.1 % (0.0-12.0); Red Cell Distribution Width 15.9 % (11.8-14.3)
[2019-06-09 06:46] LABS: Potassium 4.2 mmol/L (3.5-5.1)
[2019-06-09 06:47] LABS: Eosinophils % (auto) 2.7 % (0.0-7.0); Hematocrit 34.4 % (41.0-53.0); Lymphocytes % (auto) 5.1 % (10.0-50.0); Mean Corpuscular Hemoglobin 34.9 pg (28.0-32.0); Mean Corpuscular Hgb Conc. 33.9 g/dL (32.0-36.0); Mean Corpuscular Volume 102.9 fL (80.0-100.0); Neutrophils # (auto) 5.7 uL; Neutrophils % (auto) 82.5 % (37.0-80.0); Platelet Count (auto) 150 10^3/uL (140-450); Red Blood Cells 3.34 10^6/uL (4.5-5.90); White Blood Cell 6.9 10^3/uL (4.4-10.8)
[2019-06-09 06:55] LABS: Albumin 3.4 g/dL (3.4-5.0); BUN/Creatinine Ratio 18.6; Bilirubin, Total 1.5 mg/dL (0.2-1.0); Total Protein 6.5 g/dL (6.4-8.2)
[2019-06-09 07:01] LABS: INR 3.1 (0.9-1.15); Partial Thromboplastin Time 44.4 sec (23.64-32.05)
--- NOTE | 2019-06-09 07:50 | NUR ---
PT RESTING IN BED, PT REPORTS 8/10 PAIN IN MARIANA AREA. MARIANA AREA CLEANED AND PEREA CATHETER CARE PERFORMED. Z GAURD APPLIED AND PILLOW APPLIED TO CREASES. PT BEDDING CHANGED. APPROX 325 MLS SLIGHTLY CLOUDY YELLOW URINE NOTED IN PEREA. PT ENCOURAGED TO USE CALL LIGHT WHEN AMBULATING TO RESTROOM WITH WALKER AND PRN. WILL GIVE PAIN MEDS AND CONTINUE TO MONITOR.
[2019-06-09 09:00] VITALS: BP 104/71
[2019-06-09] MEDS: cefTRIAXone 1GM/50ML D5W 50 ML IV SCH (09:03)
[2019-06-09] MEDS: FUROSEMIDE 40 MG/4 ML VIAL IV SCH (09:03)
[2019-06-09] MEDS: traMADol HCL 50 MG TAB PO PRN ×2 (09:06→15:18)
[2019-06-09] MEDS: METOPROLOL TARTRATE 25 MG TAB PO SCH (09:07)
[2019-06-09] MEDS: FAMOTIDINE 20 MG TAB PO SCH (09:07)
[2019-06-09] MEDS: CLOTRIMAZOLE 1 % CREAM 15GM TOP SCH ×2 (09:08→22:00)
[2019-06-09 09:42] LABS: Folate (Folic Acid) > 24.00 ng/mL (5.38-24)
--- NOTE | 2019-06-09 09:55 | NUR ---
Dr Meza saw patient and discussed POC. New orders for SS consult for home health for Kauffman care and leg bag. Pt is to dc tomorrow with ABX.
--- NOTE | 2019-06-09 10:03 | NUR ---
TELE ALARM GOING OFF AT NURSING STATION. PT HR IS GOING UP TO 130'S. ASSESSED PT, PT WALKED TO BATHROOM AND REPORTS HE IS HAVING A BM, PT REPORTS BEING A LITTLE SOB WITH NO CHEST PAIN. PT REQUESTING NURSE CALL HIS DAUGHTER AND UPDATE HER ON POC. CALLED AND LEFT MESSAGE TO DR NICHOLSON NOTIFYING OF PT HR. DR NICHOLSON REQUESTED 02 SAT, ASSESSED 94% ON RA, HR 77 BPM. PT HAD LARGE BM, BROWN AND FORMED. CALLED PT DAUGHTER JULEE AND UPDATED HER ON POC PER PT REQUEST.
[2019-06-09 13:00] VITALS: BP 94/52
--- NOTE | 2019-06-09 14:29 | NUR ---
Respiratory note: PT ASSESSED FOR PRN. PT AWAKE ALERT AND RESPONSIVE. PT FOUND ON ROOM AIR IN NO DISTRESS.NO COMPLAINT OF SOB. HR 75, RR 20 SP02 96. BS WERE DIMINISHED. INFORMED PT IF BECOMES SOB TO PUSH CALL LIGHT AND RT WILL BE PAGED.
[2019-06-09 15:38] VITALS: BP 94/52
--- NOTE | 2019-06-09 16:00 | NUR ---
ASKED NELSY, [employer] SECURITY ENGINEER TO RECALL SURGICAL CONSULT.
[2019-06-09 17:03] VITALS: BP 106/61
[2019-06-09] MEDS: MORPHINE SULF INJ 2 MG/ML SYRINGE 1ML IV PRN (20:42)
[2019-06-09 21:38] VITALS: BP 113/57
--- NOTE | 2019-06-09 21:57 | NUR ---
PRN MED NEB ASSESSMENT. PT DENIES SOB NO DISTRESS NOTED AT THIS TIME. RA POX 95% HR 78 RR 22. BS ARE CLEAR AND DIMINISHED. TX NOT GIVEN.
[2019-06-10] MEDS: MORPHINE SULF INJ 2 MG/ML SYRINGE 1ML IV PRN ×4 (05:10→22:06)
[2019-06-10 05:52] VITALS: BP 114/71
[2019-06-10 06:24] LABS: Basophils # (auto) 0 uL; Basophils % (auto) 0.5 % (0.0-2.0); Eosinophils # (auto) 0.3 uL; Eosinophils % (auto) 4.5 % (0.0-7.0); Hematocrit 33.9 % (41.0-53.0); Hemoglobin 11.6 g/dL (13.5-17.5); Lymphocytes # (auto) 0.4 uL; Lymphocytes % (auto) 7.5 % (10.0-50.0); Mean Corpuscular Hemoglobin 34.8 pg (28.0-32.0); Mean Corpuscular Hgb Conc. 34.2 g/dL (32.0-36.0); Mean Corpuscular Volume 101.8 fL (80.0-100.0); Monocytes # (auto) 0.5 uL; Monocytes % (auto) 9.5 % (0.0-12.0); Neutrophils # (auto) 4.3 uL; Platelet Count (auto) 150 10^3/uL (140-450); Red Blood Cells 3.33 10^6/uL (4.5-5.90); Red Cell Distribution Width 15.7 % (11.8-14.3); White Blood Cell 5.5 10^3/uL (4.4-10.8)
[2019-06-10 06:27] LABS: INR 2.05 (0.9-1.15)
[2019-06-10 06:28] LABS: Potassium 4.2 mmol/L (3.5-5.1)
--- NOTE | 2019-06-10 06:34 | NUR ---
PT. ASSESSED FOR PRN. MN. TX. , NO RESP. DISTRESS OR SOB NOTED. PT. IS AWAKE AND ALERT, SITTING UP IN BED WATCHING TV. . PT. STATES HE DOES NOT NEED AT BREATHING TX. AT THIS TIME. BS. ARE CLEAR AND DIMINISHED AT THE BASES. HR=89,RR=18,SP02=95% ON 2.5LPM NC. PT. INSTRUCTED TO CALL IF TX. IS NEEDED. NO TX. GIVEN AT THIS TIME.
[2019-06-10 06:37] LABS: Albumin 3.3 g/dL (3.4-5.0); BUN/Creatinine Ratio 20.4; Calcium 8.2 mg/dL (8.5-10.1)
[2019-06-10 06:39] LABS: Bilirubin, Total 1.4 mg/dL (0.2-1.0); Total Protein 6.7 g/dL (6.4-8.2)
[2019-06-10 09:00] VITALS: BP 122/52
[2019-06-10] MEDS: METOPROLOL TARTRATE 25 MG TAB PO SCH (10:14)
[2019-06-10] MEDS: FAMOTIDINE 20 MG TAB PO SCH (10:14)
[2019-06-10] MEDS: FUROSEMIDE 40 MG/4 ML VIAL IV SCH (10:14)
[2019-06-10] MEDS: CLOTRIMAZOLE 1 % CREAM 15GM TOP SCH ×2 (10:15→22:05)
[2019-06-10] MEDS: cefTRIAXone 1GM/50ML D5W 50 ML IV SCH (10:15)
[2019-06-10 13:01] VITALS: BP 113/59
--- NOTE | 2019-06-10 14:06 | NUR ---
Discharge planning per SS consult, patient has orders for home health for gonzalez care. Referral sent to [facility] and [facility] for home health. Placed a follow up call, spoke with M[facility] and was advised they will accept patient onto services and start of care will be within 24-48 hours upon discharge.
[2019-06-10 16:47] VITALS: BP 131/76
--- NOTE | 2019-06-10 18:56 | NUR ---
PT ASSESSED FOR PRN MED NEB TX. SPO2 91% ON RA, HR 107. PT DENIES ANY RESPIRATORY DISTRESS. NO TX INDICATED. PT IS AWARE TO HAVE RT PAGED IF TX NEEDED.
[2019-06-10 21:00] VITALS: BP 131/72
[2019-06-10] MEDS: CEPHALEXIN 250 MG CAP PO SCH (22:05)
[2019-06-11 05:17] VITALS: BP 123/71
--- NOTE | 2019-06-11 06:40 | NUR ---
Respiratory note: PT ASSESSED FOR PRN MED NEB TX. HR 72, RR 16, SPO2 94% ON RA. NO SIGNS OF ANY RESPIRATORY DISTRESS NOTED. ADVISED PT TO CALL IF TX IS NEEDED. RT NAME AND PAGER NUMBER WRITTEN ON PT'S BOARD.
--- NOTE | 2019-06-11 07:55 | NUR ---
Opening Shift Note Assumed care of patient, comfortably sleeping on 2L NC.Breath sounds even and unlabored. No S/S of distress/SOB or pain. Bed at lowest locked position, bed side rails up x2 and call light within reach. Instructed on POC and to call for assist PRN, will continue to monitor for changes Q1hr and PRN.
[2019-06-11 08:00] VITALS: BP 108/55
[2019-06-11 08:47] VITALS: BP 103/53
[2019-06-11] MEDS: FAMOTIDINE 20 MG TAB PO SCH (08:59)
[2019-06-11] MEDS: CEPHALEXIN 250 MG CAP PO SCH ×2 (08:59→21:51)
[2019-06-11] MEDS: FUROSEMIDE 40 MG/4 ML VIAL IV SCH (08:59)
[2019-06-11] MEDS: METOPROLOL TARTRATE 25 MG TAB PO SCH (09:00)
[2019-06-11] MEDS: CLOTRIMAZOLE 1 % CREAM 15GM TOP SCH ×2 (10:00→21:47)
--- NOTE | 2019-06-11 10:55 | NUR ---
Tele monitor Patient is refusing Tele box for now. Education provided. Will continue to monitor. distribution technician aware.
--- NOTE | 2019-06-11 11:53 | NUR ---
NUTRITION ASSESSMENT NOTES Please refer to link notes of nutrition screen form filed under the intervention section of the plan of care for further details. Est. Needs: 2250 kcal to 2800 kcal (20-25 kcal/kgBW), 90 gms to 112 gms pro (0.8-1.0 gms/kgBW). Will continue to monitor pertinent labs and reassess nutrient need prn Thank you. Addendum: 06/11/19 at [address] Amended: Links added.
--- NOTE | 2019-06-11 12:47 | NUR ---
Kauffman catheter dc'd Order to discontinue Kauffman catheter. Kauffman dc'd with clean technique following deflation of balloon. Patient tolerated well with no complaints of pain. Total urine collection, 230 mls. Will Continue care.
[2019-06-11 12:50] VITALS: BP 104/64
[2019-06-11 12:56] LABS: Hematocrit 36.2 % (41.0-53.0); Hemoglobin 12.5 g/dL (13.5-17.5)
[2019-06-11 13:13] LABS: INR 1.48 (0.9-1.15); Partial Thromboplastin Time 32.2 sec (23.64-32.05)
[2019-06-11 13:14] LABS: BUN/Creatinine Ratio 17.6; Calcium 8.7 mg/dL (8.5-10.1); Potassium 4.3 mmol/L (3.5-5.1)
--- NOTE | 2019-06-11 16:15 | NUR ---
ROUNDS PATIENT THOUGHT HE WAS GOING HOME AND REMOVED HIS OWN IV AND TELE BOX. EXPLAINED TO HIM THAT HE IS NOT GOING HOME TODAY, THERE ARE NO DISCHARGE ORDERS PRESENT. PATIENT VERBALIZED UNDERSTANDING. PATIENT IS REFUSING NEW IV INSERTION.
[2019-06-11 16:57] VITALS: BP 125/90
[2019-06-11] MEDS ORDERED: WARFARIN SODIUM 5 MG TAB PO ONE (17:00)
[2019-06-11] MEDS: MORPHINE SULF INJ 2 MG/ML SYRINGE 1ML IV PRN (18:23)
--- NOTE | 2019-06-11 18:30 | NUR ---
PT ASSESS FOR PRN TX. TX IS NOT INDICATED AT THIS TIME. PT DENIES SOB. HR 70 RR 18 95% ON ROOM AIR. B/S CLEAR AND DECREASED. PT UNDERSTANDS TO CALL IF TX IS NEEDED.
[2019-06-11] MEDS: traMADol HCL 50 MG TAB PO PRN (18:33)
--- NOTE | 2019-06-11 19:30 | NUR ---
Opening Shift Note Report received from day shift RN. Assumed care of patient. Patient resting in bed and A&O x4. Patient on 2L via NC. Breath sounds even and unlabored. No S/S of distress/SOB noted and denies pain at this time. Bed locked in lowest position, bed side rails up x2 and call light within reach. Instructed on POC and to call for assist PRN, will continue to monitor for changes Q1hr and PRN.
[2019-06-11 21:00] VITALS: BP 123/66
--- NOTE | 2019-06-11 21:23 | NUR ---
Patient stated removing IV because he thought he was going to be discharged today. Educated patient on the need for an IV, patient verbalized understanding and continued to refuse IV insertion.
[2019-06-12 05:07] VITALS: BP 132/77
--- NOTE | 2019-06-12 05:24 | NUR ---
Refusing Labs Patient refusing lab draw at this time. Patient was informed that we will ask again in a few hours. Patient educated on the need of lab draw. Patient verbalized understanding and continued to refuse.
[2019-06-12 07:29] VITALS: BP 132/77
--- NOTE | 2019-06-12 07:30 | NUR ---
Opening Shift Note Assumed care of patient, awake, alert, and oreinted x4. No S/S of distress/SOB or pain. Patient took own IV out and is refusing IV acces. Bed is locked and in lowest position and call light is within reach. Instructed on POC and to call for assist PRN, and patient verbalized understanding. Will continue to monitor for changes Q1hr and PRN.
[2019-06-12 09:00] VITALS: BP 114/73
[2019-06-12] MEDS: CEPHALEXIN 250 MG CAP PO SCH ×2 (09:24→21:07)
[2019-06-12] MEDS: METOPROLOL TARTRATE 25 MG TAB PO SCH (09:25)
[2019-06-12] MEDS: FAMOTIDINE 20 MG TAB PO SCH (09:25)
[2019-06-12] MEDS: FUROSEMIDE 40 MG/4 ML VIAL IV SCH (09:25)
[2019-06-12] MEDS: CLOTRIMAZOLE 1 % CREAM 15GM TOP SCH ×2 (10:00→21:07)
[2019-06-12 11:32] LABS: INR 1.49 (0.9-1.15); Partial Thromboplastin Time 32.2 sec (23.64-32.05)
[2019-06-12 13:00] VITALS: BP 104/60
--- NOTE | 2019-06-12 13:29 | NUR ---
Dr. Valenzuela, Hospitalist, at bedside; new orders received.
[2019-06-12] MEDS ORDERED: TAMSULOSIN HYDROCHLORIDE 0.4 MG CAP PO ONE (13:30)
[2019-06-12 17:00] VITALS: BP 125/60
[2019-06-12] MEDS ORDERED: WARFARIN SODIUM 2 MG TAB PO ONE (17:00)
--- NOTE | 2019-06-12 19:20 | NUR ---
Opening Shift Note Report received from day shift RN. Assumed care of patient. Patient resting in bed and A&O x4. Breath sounds even and unlabored. No S/S of distress/SOB noted and denies pain at this time. Bed locked in lowest position, bed side rails up x2 and call light within reach. Patient continues to refuse IV insertion. Instructed on POC and to call for assist PRN, will continue to monitor for changes Q1hr and PRN.
[2019-06-12 22:00] VITALS: BP_SYST 118; BP_SYST 124; BP_DIAS 67; BP_DIAS 76
[2019-06-12] MEDS: traMADol HCL 50 MG TAB PO PRN (22:14)
--- NOTE | 2019-06-13 00:33 | NUR ---
Respiratory note: ASSESSED PT FOR PRN MED NEB AT THIS TIME, PT DENIES SOB AT THIS TIME, NO RESP DISTRESS NOTED, NO TX INDICATED. PULSE OX 92% ON RA, HR 95, RR 20, BILATERAL BS CLEAR
[2019-06-13 05:00] VITALS: BP 116/71
[2019-06-13 07:12] LABS: INR 1.53 (0.9-1.15); Partial Thromboplastin Time 32.5 sec (23.64-32.05)
[2019-06-13 08:30] VITALS: BP 125/80
--- NOTE | 2019-06-13 09:40 | NUR ---
DR. ARGUELLO IN TO SEE PT. PT IN AGREEMENT WITH PLAN OF CARE. MEDICATIONS ADJUSTED PER DR. ARGUELLO'S ORDER.
[2019-06-13] MEDS: FAMOTIDINE 20 MG TAB PO SCH (10:13)
[2019-06-13] MEDS ORDERED: FUROSEMIDE 40 MG TAB PO ONE (10:15)
[2019-06-13] MEDS: CEPHALEXIN 250 MG CAP PO SCH ×2 (10:18→21:18)
[2019-06-13] MEDS: TAMSULOSIN HYDROCHLORIDE 0.4 MG CAP PO SCH ×2 (10:19→21:18)
[2019-06-13] MEDS: METOPROLOL TARTRATE 25 MG TAB PO SCH (10:19)
[2019-06-13] MEDS: CLOTRIMAZOLE 1 % CREAM 15GM TOP SCH ×2 (10:20→21:25)
[2019-06-13 13:00] VITALS: BP 103/68
[2019-06-13 17:00] VITALS: BP 125/70
[2019-06-13] MEDS ORDERED: WARFARIN SODIUM 2.5 MG TAB PO ONE (17:00)
[2019-06-13] MEDS ORDERED: TAMSULOSIN HYDROCHLORIDE 0.4 MG CAP PO SCH (18:00)
--- NOTE | 2019-06-13 19:30 | NUR ---
Respiratory note: PT ASSESSED FOR PRN MED NEB TX. HR 92, RR 20 SPO2 96% 2L NC. NO SIGNS OF ANY RESPIRATORY DISTRESS NOTED. ADVISED PT TO CALL IF TX IS NEEDED. RT NAME AND PAGER NUMBER WRITTEN ON BOARD.
--- NOTE | 2019-06-13 19:30 | NUR ---
OPENING SHIFT NOTE RECEIVED REPORT FROM DAYSHIFT RN. PATIENT SITTING UP IN BED WATCHING TELEVISION. PATIENT A/O X4, AMBULATORY. NO S/S OF DISTRESS OR SOB. NO PAIN NOTED OR REPORTED AT THIS TIME. UPDATED PATIENT ON POC, VERBALIZED UNDERSTANDING. BED LOCKED IN LOW POSITION, CALL LIGHT WITHIN REACH. WILL CONTINUE TO MONITOR PATIENT Q1HR AND PRN.
[2019-06-13] MEDS: traMADol HCL 50 MG TAB PO PRN (21:21)
[2019-06-13 22:00] VITALS: BP 121/67
[2019-06-14 05:03] VITALS: BP 116/70
--- NOTE | 2019-06-14 08:20 | NUR ---
PT IS CONCERN ABOUT HIS APPOINTMENT WITH [facility] TODAY AT O900, I CALLED [facility] SPOKE TO ANGELINE, INFORMED HER THAT PT HAS APPOINTMENT AT 0900, MADE AWARE PT WAS ADMITTED AND HAS PT/INR RESULT FROM YESTERDAY. PER ANGELINE SHE WILL INFORM DR. RAPHAEL ARGUELLO OF THE RESULT AND THEY WILL CALL ME BACK. PT MADE AWARE.
--- NOTE | 2019-06-14 08:20 | NUR ---
Respiratory note: HR 105, RR 16, SPO2 95% ON 2 L NC, BS CLEAR AND SLIGHTLY DIMINISHED. PRN MED NEB TX NOT INDICATED AT THIS TIME.NO SIGNS OR SYMPTOMS OF RESPIRATORY DISTRESS NOTED AT THIS TIME. PT INFORMED TO HIT CALL BUTTON IF FEELING SOB OR WHEEZING.
[2019-06-14 08:49] VITALS: BP 116/80
[2019-06-14] MEDS: TAMSULOSIN HYDROCHLORIDE 0.4 MG CAP PO SCH (09:21)
[2019-06-14 09:23] LABS: Lymphocytes # (auto) 0.3 uL; Lymphocytes % (auto) 7.6 % (10.0-50.0); Nucleated Red Blood Cells % 0.1 %; White Blood Cell 3.7 10^3/uL (4.4-10.8)
[2019-06-14] MEDS: FAMOTIDINE 20 MG TAB PO SCH (09:23)
[2019-06-14] MEDS: METOPROLOL TARTRATE 25 MG TAB PO SCH (09:23)
[2019-06-14 09:24] LABS: Basophils # (auto) 0 uL; Basophils % (auto) 1.2 % (0.0-2.0); Eosinophils # (auto) 0.2 uL; Eosinophils % (auto) 4.3 % (0.0-7.0); Hematocrit 34.5 % (41.0-53.0); Hemoglobin 11.6 g/dL (13.5-17.5); Mean Corpuscular Hemoglobin 34.9 pg (28.0-32.0); Mean Corpuscular Hgb Conc. 33.6 g/dL (32.0-36.0); Mean Corpuscular Volume 103.7 fL (80.0-100.0); Monocytes # (auto) 0.4 uL; Monocytes % (auto) 9.6 % (0.0-12.0); Neutrophils # (auto) 2.9 uL; Neutrophils % (auto) 77.3 % (37.0-80.0); Platelet Count (auto) 136 10^3/uL (140-450); Red Blood Cells 3.32 10^6/uL (4.5-5.90); Red Cell Distribution Width 16.1 % (11.8-14.3)
[2019-06-14] MEDS: CEPHALEXIN 250 MG CAP PO SCH (09:24)
[2019-06-14] MEDS: CLOTRIMAZOLE 1 % CREAM 15GM TOP SCH (09:24)
[2019-06-14 09:36] LABS: INR 1.8 (0.9-1.15)
[2019-06-14] MEDS ORDERED: FUROSEMIDE 40 MG TAB PO SCH (10:00)
--- NOTE | 2019-06-14 10:07 | NUR ---
CALLED [facility] SPOKE TO RAPHAEL PRO, MADE AWARE THAT PT HAS APPOINTMENT TODAY BUT UNABLE TO COME SINCE PT WAS ADMITTED, MADE AWARE OF THE PT/INR, PER RAPHAEL SHE IS OKAY WITH [facility] PER PHARMACY PROTOCOL, SHE WILL COME LATER TO TALK TO THE PT.
--- NOTE | 2019-06-14 10:36 | NUR ---
SPOKE WITH DR. NICHOLSON PER DR. NICHOLSON PT CAN GO HOME WITH ANTIBIOTIC AND ALBUTEROL INHALER, NO COUMADIN, PT WILL FOLLOW UP WITH [facility] WANG ON FRIDAY.
--- NOTE | 2019-06-14 12:18 | NUR ---
RT NOTE CALLED FOR A PRN MED NEB TX. ARRIVED IN PT ROOM TO SEE NO RESPIRATORY DISTRESS. PT STATES HE DOES NOT WANT OR NEED A BREATHING TX. HE JUST NEEDED ME TO GRAB HIS BAG.
[2019-06-14 13:16] VITALS: BP 112/78
[2019-06-14 13:17] VITALS: BP 116/80
--- NOTE | 2019-06-14 13:48 | NUR ---
DR. NICHOLSON MADE AWARE PT IS REQUESTING HOME O2 PRN, NOTED PT HAVING SOB AFTER WALKING TO THE BATHROOM, CHECKED O2 SAT 93-94%, NO WHEEZING, PT DOES NOT WANT TO GO HOME WITHOUT OXYGEN. DR. NICHOLSON ORDERED ABG , AND HOME O2 IF PT QUALIFIES.
--- NOTE | 2019-06-14 14:37 | NUR ---
PAGED RT TO FOLLOW UP ABG, PT PENDING DISCHARGE.
--- NOTE | 2019-06-14 15:30 | NUR ---
DR. NICHOLSON MADE AWARE OF ABG RESULT, PO2 66.5. PER DR. NICHOLSON NO OXYGEN.
--- NOTE | 2019-06-14 15:45 | NUR ---
DAUGHTER JULEE MADE AWARE PT NEEDS TO STOP COUMADIN UNTIL FOLLOW UP WITH [facility] WANG, BLOOD WORK ON FRIDAY BEFORE APPOINTMENT.
--- NOTE | 2019-06-14 16:00 | NUR ---
Discharge instructions given as ordered. Encourage to follow up with DEM[facility] WANG ON 06/18/19 AT 9:15 AM, FOLLOW UP WITH DR. WALLACE IN 2 WEEKS, DAUGHTER WILL ASK FOR REFERRAL FROM PCP AND WILL MAKE AN APPOINTMENT. All questions and concerns addressed. Patient verbalized understanding. Medication reconciliation form completed and copy given to patient. IV removed with catheter intact, pressure dressing applied Telemetry unit returned to ICU. Patient taken to vehicle via wheelchair with all personal belongings, accompanied by staff and family member. No distress noted at time of departure.
[2019-06-14] MEDS ORDERED: WARFARIN SODIUM 5 MG TAB PO ONE (17:00)
== END 2019-06-14 15:48 | disposition home health service (06) | DRG 727 ==
LOC: ER 06:17 → EDBD 06:17 → TELE 06:18 → TELE-EAST 10:32
PROVIDERS: ADMIT Nurse Practitioner Acute Care; ATTEND Internal Medicine
DX: N49.2 Inflammatory disorders of scrotum (principal); I50.33 Acute on chronic diastolic (congestive) heart failure; N17.0 Acute kidney failure with tubular necrosis; D68.59 Other primary thrombophilia; I13.0 Hypertensive heart and chronic kidney disease with heart failure and stage 1 through stage 4 chronic kidney disease, or unspecified chronic kidney disease; I48.20 Chronic atrial fibrillation, unspecified; J44.9 Chronic obstructive pulmonary disease, unspecified; N18.3 Chronic kidney disease, stage 3 (moderate); E11.22 Type 2 diabetes mellitus with diabetic chronic kidney disease; D53.9 Nutritional anemia, unspecified; M19.90 Unspecified osteoarthritis, unspecified site; R33.9 Retention of urine, unspecified; E66.01 Morbid (severe) obesity due to excess calories; N13.9 Obstructive and reflux uropathy, unspecified; S30.1XXA Contusion of abdominal wall, initial encounter; X58.XXXA Exposure to other specified factors, initial encounter; B35.6 Tinea cruris; E11.65 Type 2 diabetes mellitus with hyperglycemia; I25.2 Old myocardial infarction; Z79.01 Long term (current) use of anticoagulants; Z79.82 Long term (current) use of aspirin; Z82.49 Family history of ischemic heart disease and other diseases of the circulatory system; Z91.14 Patient's other noncompliance with medication regimen; Z95.1 Presence of aortocoronary bypass graft; Z95.2 Presence of prosthetic heart valve; Z87.891 Personal history of nicotine dependence; Z79.899 Other long term (current) drug therapy; Y93.89 Activity, other specified; Y92.89 Other specified places as the place of occurrence of the external cause; Y99.8 Other external cause status; Z68.34 Body mass index [BMI] 34.0-34.9, adult
CPT/HCPCS: 36415; 36600; 51702; 71045; 74176; 76870; 80048; 80053; 81001; 82607; 82746; 82805; 83735; 83880; 84484; 85014; 85018; 85025; 85610; 85730; 87081; 93005; 94761; 96374; 97163; G0378; J0696

== ENCOUNTER → 2019-06-17 | Outpatient (CLI) | payer OTHER ==
[~2019-06-17] MED LIST changes: +AMIO100T3 OR; -AMLO10CA PO; -ASPI-231 PO; +ASPI-404 PO; +DIGO1TAB35 PO; -DOCU-94 PO; +TAMS0.4C36 PO; +VALS320T15 PO
[2019-06-17 10:20] LABS: Basophils # (auto) 0 uL; Eosinophils # (auto) 0.2 uL; Hemoglobin 12.5 g/dL (13.5-17.5); Mean Corpuscular Volume 103.9 fL (80.0-100.0); Monocytes # (auto) 0.5 uL
[2019-06-17 10:22] LABS: Basophils % (auto) 0.6 % (0.0-2.0); Eosinophils % (auto) 2.4 % (0.0-7.0); Hematocrit 37.1 % (41.0-53.0); Lymphocytes # (auto) 0.4 uL; Lymphocytes % (auto) 5.6 % (10.0-50.0); Mean Corpuscular Hemoglobin 34.9 pg (28.0-32.0); Mean Corpuscular Hgb Conc. 33.6 g/dL (32.0-36.0); Monocytes % (auto) 7.3 % (0.0-12.0); Neutrophils # (auto) 5.3 uL; Neutrophils % (auto) 84.1 % (37.0-80.0); Nucleated Red Blood Cells % 0.1 %; Platelet Count (auto) 178 10^3/uL (140-450); Red Blood Cells 3.57 10^6/uL (4.5-5.90); Red Cell Distribution Width 16.5 % (11.8-14.3); White Blood Cell 6.3 10^3/uL (4.4-10.8)
[2019-06-17 10:35] LABS: INR 2.27 (0.9-1.15); Partial Thromboplastin Time 33.6 sec (23.64-32.05)
[2019-06-17 11:06] LABS: Albumin 3.7 g/dL (3.4-5.0); Calcium 8.8 mg/dL (8.5-10.1); Potassium 4.7 mmol/L (3.5-5.1)
[2019-06-17 11:12] LABS: BUN/Creatinine Ratio 14.1; Total Protein 7.3 g/dL (6.4-8.2)
== END | disposition home or self-care (01) ==
LOC: LAB 09:44
PROVIDERS: ATTEND Internal Medicine
DX: D64.9 Anemia, unspecified (principal); I11.0 Hypertensive heart disease with heart failure; I50.9 Heart failure, unspecified; J44.9 Chronic obstructive pulmonary disease, unspecified; E78.5 Hyperlipidemia, unspecified; E11.9 Type 2 diabetes mellitus without complications; I25.2 Old myocardial infarction; M19.90 Unspecified osteoarthritis, unspecified site; Z87.891 Personal history of nicotine dependence; Z95.1 Presence of aortocoronary bypass graft; Z90.79 Acquired absence of other genital organ(s); Z90.89 Acquired absence of other organs; Z98.49 Cataract extraction status, unspecified eye; Z82.49 Family history of ischemic heart disease and other diseases of the circulatory system; Z80.9 Family history of malignant neoplasm, unspecified
CPT/HCPCS: 36415; 80053; 85025; 85610; 85730

== ENCOUNTER → 2019-12-30 | Outpatient (CLI) | payer OTHER ==
[2019-12-30 07:57] LABS: Urine WBC None Seen /hpf (0 - 3)
[2019-12-30 08:03] LABS: Eosinophils # (auto) 0.1 10 ^3/uL (0-0.8); Lymphocytes # (auto) 0.4 10 ^3/uL (0.4-5.4); Mean Corpuscular Volume 104.2 fL (80.0-100.0); Monocytes # (auto) 0.5 10 ^3/uL (0-1.3); White Blood Cell 5.1 10^3/uL (4.4-10.8)
[2019-12-30 08:05] LABS: Basophils # (auto) 0.1 10 ^3/uL (0-0.2); Basophils % (auto) 1.1 % (0.0-2.0); Eosinophils % (auto) 1.7 % (0.0-7.0); Hematocrit 43.8 % (41.0-53.0); Hemoglobin 14.7 g/dL (13.5-17.5); Lymphocytes % (auto) 8.2 % (10.0-50.0); Mean Corpuscular Hemoglobin 34.9 pg (28.0-32.0); Mean Corpuscular Hgb Conc. 33.5 g/dL (32.0-36.0); Monocytes % (auto) 10.3 % (0.0-12.0); Neutrophils % (auto) 78.7 % (37.0-80.0); Platelet Count (auto) 123 10^3/uL (140-450); Red Blood Cells 4.21 10^6/uL (4.5-5.90); Red Cell Distribution Width 15.2 % (11.8-14.3)
[2019-12-30 08:09] LABS: Urine Bacteria NONE SEEN /hpf (None Seen); Urine Blood Negative /uL (Negative); Urine Hyaline Cast FEW /lpf (0 - 2); Urine Specific Gravity 1.012 (1.001-1.035)
[2019-12-30 08:29] LABS: Albumin 3.7 g/dL (3.4-5.0); Calcium 8.6 mg/dL (8.5-10.1); Potassium 4.3 mmol/L (3.5-5.1)
[2019-12-30 08:35] LABS: BUN/Creatinine Ratio 22.5; Bilirubin, Total 1.4 mg/dL (0.2-1.0); Total Protein 7.9 g/dL (6.4-8.2)
== END | disposition home or self-care (01) ==
LOC: LAB 07:36
PROVIDERS: ATTEND Nurse Practitioner
DX: Z00.00 Encounter for general adult medical examination without abnormal findings (principal); E78.5 Hyperlipidemia, unspecified
CPT/HCPCS: 36415; 80053; 80061; 81001; 84443; 85025

== ENCOUNTER → 2020-01-05 | Outpatient (CLI) | payer OTHER | END | disposition home or self-care (01) | LOC: XYW 09:35 | PROVIDERS: ATTEND Internal Medicine | DX: I07.1 Rheumatic tricuspid insufficiency (principal); I10 Essential (primary) hypertension; I27.20 Pulmonary hypertension, unspecified; Z95.2 Presence of prosthetic heart valve | CPT/HCPCS: 93306 ==

== ENCOUNTER → 2020-03-20 | Outpatient (CLI) | payer OTHER ==
[~2020-03-20] MED LIST changes: +ALBUTEROL SULF 2.5 MG/0.5ML(0.5%) NEB SOLN ONE; -ASPI-404 PO; +ASPI-543 PO
== END | disposition home or self-care (01) ==
LOC: RT 08:38
PROVIDERS: ATTEND Internal Medicine Pulmonary Disease
DX: J44.9 Chronic obstructive pulmonary disease, unspecified (principal)
CPT/HCPCS: 94060; 94727; 94729

== ENCOUNTER → 2020-04-14 | Outpatient (CLI) | payer OTHER, MEDICARE ==
[~2020-04-14] MED LIST changes: -ALBUTEROL SULF 2.5 MG/0.5ML(0.5%) NEB SOLN ONE
== END | disposition home or self-care (01) ==
LOC: LAB 09:51
PROVIDERS: ATTEND Nurse Practitioner
DX: I10 Essential (primary) hypertension (principal); E11.9 Type 2 diabetes mellitus without complications; E78.5 Hyperlipidemia, unspecified
CPT/HCPCS: 82270

== ENCOUNTER → 2020-06-02 | Outpatient (CLI) | payer OTHER ==
[2020-06-02 10:24] LABS: Urine Bacteria NONE SEEN /hpf (None Seen); Urine Blood Negative /uL (Negative); Urine Specific Gravity 1.014 (1.001-1.035); Urine WBC <1 /hpf (0 - 3)
[2020-06-02 10:29] LABS: Basophils # (auto) 0 10 ^3/uL (0-0.2); Eosinophils # (auto) 0.2 10 ^3/uL (0-0.8); Lymphocytes # (auto) 0.4 10 ^3/uL (0.4-5.4); Mean Corpuscular Hemoglobin 35.7 pg (28.0-32.0); Monocytes # (auto) 0.4 10 ^3/uL (0-1.3); Neutrophils # (auto) 2.6 10 ^3/uL (1.6-8.6); Nucleated Red Blood Cells % 0.1 %; White Blood Cell 3.6 10^3/uL (4.4-10.8)
[2020-06-02 10:32] LABS: Eosinophils % (auto) 6.2 % (0.0-7.0); Hemoglobin 13.2 g/dL (13.5-17.5); Lymphocytes % (auto) 10.5 % (10.0-50.0); Mean Corpuscular Hgb Conc. 33.8 g/dL (32.0-36.0); Mean Corpuscular Volume 105.7 fL (80.0-100.0); Monocytes % (auto) 9.8 % (0.0-12.0); Neutrophils % (auto) 72.5 % (37.0-80.0); Platelet Count (auto) 108 10^3/uL (140-450); Red Blood Cells 3.69 10^6/uL (4.5-5.90); Red Cell Distribution Width 14.9 % (11.8-14.3)
[2020-06-02 10:33] LABS: Albumin 3.8 g/dL (3.4-5.0); Calcium 8.7 mg/dL (8.5-10.1)
[2020-06-02 10:35] LABS: BUN/Creatinine Ratio 31.1; Bilirubin, Total 0.8 mg/dL (0.2-1.0); Total Protein 7.7 g/dL (6.4-8.2)
== END | disposition home or self-care (01) ==
LOC: LAB 09:41
PROVIDERS: ATTEND Nurse Practitioner
DX: E78.5 Hyperlipidemia, unspecified (principal); E11.9 Type 2 diabetes mellitus without complications; I10 Essential (primary) hypertension; E73.9 Lactose intolerance, unspecified
CPT/HCPCS: 36415; 80053; 81001; 82043; 83036; 85025

== ENCOUNTER 2020-08-07 00:36 | Inpatient (IN) | payer OTHER ==
[~2020-08-07] VITALS: Ht 188 cm; Wt 123.0 kg
[2020-08-07] MEDS ORDERED: LIDOCAINE W/ EPINEPHRINE 2% INJ 20ML VIAL IJ ONE (01:15)
[2020-08-07 01:47] LABS: Hematocrit 23.7 % (41.0-53.0); Neutrophils # (auto) 8.7 10 ^3/uL (1.6-8.6); Red Blood Cells 2.19 10^6/uL (4.5-5.90)
[2020-08-07 01:49] LABS: Basophils # (auto) 0 10 ^3/uL (0-0.2); Basophils % (auto) 0.3 % (0.0-2.0); Eosinophils # (auto) 0 10 ^3/uL (0-0.8); Eosinophils % (auto) 0.5 % (0.0-7.0); Hemoglobin 7.7 g/dL (13.5-17.5); Lymphocytes # (auto) 0.5 10 ^3/uL (0.4-5.4); Lymphocytes % (auto) 4.7 % (10.0-50.0); Mean Corpuscular Hemoglobin 35.2 pg (28.0-32.0); Mean Corpuscular Hgb Conc. 32.5 g/dL (32.0-36.0); Mean Corpuscular Volume 108.2 fL (80.0-100.0); Monocytes # (auto) 0.7 10 ^3/uL (0-1.3); Monocytes % (auto) 7.4 % (0.0-12.0); Neutrophils % (auto) 87.1 % (37.0-80.0); Red Cell Distribution Width 15.1 % (11.8-14.3)
[2020-08-07 02:07] LABS: Partial Thromboplastin Time 40.8 sec (23.0-31.2)
[2020-08-07 02:08] LABS: Albumin 2.3 g/dL (3.4-5.0); BUN/Creatinine Ratio 25.7; Calcium 7.7 mg/dL (8.5-10.1); Potassium 4.6 mmol/L (3.5-5.1)
[2020-08-07 02:11] LABS: Bilirubin, Total 0.8 mg/dL (0.2-1.0); Total Protein 5.6 g/dL (6.4-8.2)
[2020-08-07 02:16] LABS: INR 4.74 (0.9-1.15)
[2020-08-07] MEDS ORDERED: LIDOCAINE W/ EPINEPHRINE 2% INJ 20ML VIAL ONE (05:25)
[2020-08-07] MEDS ORDERED: PIPERACILLIN-TAZOB 3.375GM 100 ML IV ONE (05:45)
[2020-08-07] MEDS ORDERED: PHYTONADIONE (VIT K)10 MG/ML 1ML VIAL SUBCUT ONE (06:15)
[2020-08-07] MEDS ORDERED: ACETAMINOPHEN 325 MG TAB PO PRN (06:15)
[2020-08-07] MEDS ORDERED: ONDANSETRON HCL 4 MG/2 ML VIAL IV PRN (06:15)
[2020-08-07] MEDS ORDERED: ALBUAER3 IN (09:22)
[2020-08-07] MEDS ORDERED: METO25TA93 PO (09:22)
[2020-08-07] MEDS ORDERED: FURO40TA4 PO (09:22)
[2020-08-07] MEDS ORDERED: POTA10TA32 PO (09:22)
[2020-08-07] MEDS ORDERED: DICL50TA2 PO (09:23)
[2020-08-07] MEDS ORDERED: WARF3TAB22 PO (09:25)
[2020-08-07] MEDS ORDERED: UMEC1AER IN (09:26)
[2020-08-07] MEDS ORDERED: ASCO250C8 PO (09:27)
[2020-08-07] MEDS ORDERED: MULT-940 PO (09:27)
[2020-08-07] MEDS ORDERED: FUROSEMIDE 40 MG TAB PO SCH (10:00)
[2020-08-07] MEDS ORDERED: VALSARTAN 80 MG TAB PO SCH (10:00)
[2020-08-07] MEDS: POTASSIUM CHL 10 Meq TABLET PO SCH (10:00)
[2020-08-07] MEDS: DIGOXIN 0.125 MG TAB PO SCH (10:00)
[2020-08-07] MEDS: cefTRIAXone 1GM/50ML D5W 50 ML IV SCH (10:04)
[2020-08-07] MEDS: AMIODARONE HCL 200 MG TAB PO SCH ×2 (10:05→21:15)
[2020-08-07] MEDS: PANTOPRAZOLE 40 MG TAB PO SCH (10:07)
[2020-08-07] MEDS: HYDROcodone-ACET 5/325MG TAB PO PRN ×2 (11:49→12:20)
[2020-08-07] MEDS ORDERED: HYDROcodone-ACET 5/325MG TAB PO ONE (13:00)
[2020-08-07] MEDS: CLINDAMYCIN 600MG IV 50 ML IV SCH ×2 (14:00→21:15)
[2020-08-07] MEDS: NOREPINEPHRINE 8 MG/250ML KIT 250 ML IV SCH (14:28)
[2020-08-07] MEDS: FUROSEMIDE 20 MG/2 ML VIAL IV SCH (17:48)
[2020-08-07] MEDS: TAMSULOSIN HYDROCHLORIDE 0.4 MG CAP PO SCH (17:50)
[2020-08-08] MEDS: FUROSEMIDE 20 MG/2 ML VIAL IV SCH ×2 (05:58→18:00)
[2020-08-08] MEDS: CLINDAMYCIN 600MG IV 50 ML IV SCH ×3 (05:58→23:31)
[2020-08-08 06:19] LABS: Eosinophils # (auto) 0 10 ^3/uL (0-0.8); Mean Corpuscular Volume 106.9 fL (80.0-100.0); Neutrophils # (auto) 7.7 10 ^3/uL (1.6-8.6); White Blood Cell 8.8 10^3/uL (4.4-10.8)
[2020-08-08 06:22] LABS: Basophils # (auto) 0 10 ^3/uL (0-0.2); Basophils % (auto) 0.4 % (0.0-2.0); Eosinophils % (auto) 0.3 % (0.0-7.0); Hematocrit 18.2 % (41.0-53.0); Lymphocytes # (auto) 0.3 10 ^3/uL (0.4-5.4); Lymphocytes % (auto) 3.7 % (10.0-50.0); Mean Corpuscular Hemoglobin 37.4 pg (28.0-32.0); Monocytes # (auto) 0.7 10 ^3/uL (0-1.3); Monocytes % (auto) 7.8 % (0.0-12.0); Neutrophils % (auto) 87.8 % (37.0-80.0); Red Cell Distribution Width 15.6 % (11.8-14.3)
[2020-08-08 06:34] LABS: INR 2.82 (0.9-1.15); Partial Thromboplastin Time 40.4 sec (23.0-31.2)
[2020-08-08 06:42] LABS: Potassium 4.9 mmol/L (3.5-5.1)
[2020-08-08 06:43] LABS: Hemoglobin 6.4 g/dL (13.5-17.5)
[2020-08-08 07:43] LABS: BUN/Creatinine Ratio 22.3; Bilirubin, Total 0.8 mg/dL (0.2-1.0); Calcium 7.9 mg/dL (8.5-10.1); Total Protein 6.1 g/dL (6.4-8.2)
[2020-08-08] MEDS: cefTRIAXone 1GM/50ML D5W 50 ML IV SCH (08:38)
[2020-08-08 08:57] LABS: Albumin 2.7 g/dL (3.4-5.0)
[2020-08-08 09:30] VITALS: BP 108/51
[2020-08-08 09:44] VITALS: BP 116/44
[2020-08-08] MEDS: DIGOXIN 0.125 MG TAB PO SCH (10:00)
[2020-08-08 10:23] VITALS: BP 129/48
[2020-08-08] MEDS: POTASSIUM CHL 10 Meq TABLET PO SCH (11:29)
[2020-08-08] MEDS: PANTOPRAZOLE 40 MG TAB PO SCH (11:31)
[2020-08-08] MEDS: AMIODARONE HCL 200 MG TAB PO SCH ×2 (11:33→23:31)
[2020-08-08 11:50] VITALS: BP 122/62
[2020-08-08] MEDS: NOREPINEPHRINE 8 MG/250ML KIT 250 ML IV SCH (14:23)
[2020-08-08] MEDS: TAMSULOSIN HYDROCHLORIDE 0.4 MG CAP PO SCH (18:11)
[2020-08-08 18:25] LABS: Basophils # (auto) 0 10 ^3/uL (0-0.2); Basophils % (auto) 0.3 % (0.0-2.0); Eosinophils # (auto) 0 10 ^3/uL (0-0.8); Eosinophils % (auto) 0.1 % (0.0-7.0); Hemoglobin 7.4 g/dL (13.5-17.5); Lymphocytes # (auto) 0.5 10 ^3/uL (0.4-5.4); Monocytes # (auto) 1.1 10 ^3/uL (0-1.3); Neutrophils # (auto) 10.7 10 ^3/uL (1.6-8.6); White Blood Cell 12.4 10^3/uL (4.4-10.8)
[2020-08-08 18:28] LABS: Hematocrit 21.3 % (41.0-53.0); Lymphocytes % (auto) 4.4 % (10.0-50.0); Mean Corpuscular Hemoglobin 35.6 pg (28.0-32.0); Mean Corpuscular Hgb Conc. 34.6 g/dL (32.0-36.0); Monocytes % (auto) 8.6 % (0.0-12.0); Neutrophils % (auto) 86.6 % (37.0-80.0); Red Blood Cells 2.07 10^6/uL (4.5-5.90); Red Cell Distribution Width 17.6 % (11.8-14.3)
[2020-08-09 06:01] LABS: Eosinophils # (auto) 0 10 ^3/uL (0-0.8); Hemoglobin 7.3 g/dL (13.5-17.5); Lymphocytes # (auto) 0.6 10 ^3/uL (0.4-5.4); Red Cell Distribution Width 17.4 % (11.8-14.3); White Blood Cell 10.7 10^3/uL (4.4-10.8)
[2020-08-09 06:03] LABS: Basophils # (auto) 0.1 10 ^3/uL (0-0.2); Basophils % (auto) 0.5 % (0.0-2.0); Eosinophils % (auto) 0.3 % (0.0-7.0); Hematocrit 21.3 % (41.0-53.0); Lymphocytes % (auto) 5.2 % (10.0-50.0); Mean Corpuscular Hemoglobin 35.5 pg (28.0-32.0); Mean Corpuscular Hgb Conc. 34.4 g/dL (32.0-36.0); Mean Corpuscular Volume 103.2 fL (80.0-100.0); Monocytes # (auto) 0.9 10 ^3/uL (0-1.3); Monocytes % (auto) 8.9 % (0.0-12.0); Neutrophils # (auto) 9.1 10 ^3/uL (1.6-8.6); Neutrophils % (auto) 85.1 % (37.0-80.0); Red Blood Cells 2.06 10^6/uL (4.5-5.90)
[2020-08-09] MEDS: FUROSEMIDE 20 MG/2 ML VIAL IV SCH ×2 (06:22→17:10)
[2020-08-09] MEDS: NOREPINEPHRINE 8 MG/250ML KIT 250 ML IV SCH ×4 (06:22→17:10)
[2020-08-09] MEDS: CLINDAMYCIN 600MG IV 50 ML IV SCH ×3 (06:22→22:00)
[2020-08-09 07:03] LABS: Albumin 2.7 g/dL (3.4-5.0); BUN/Creatinine Ratio 19.9; Calcium 7.9 mg/dL (8.5-10.1); Potassium 4.8 mmol/L (3.5-5.1)
[2020-08-09 07:15] LABS: Bilirubin, Total 0.9 mg/dL (0.2-1.0); Total Protein 6.4 g/dL (6.4-8.2)
[2020-08-09] MEDS: cefTRIAXone 1GM/50ML D5W 50 ML IV SCH (07:54)
[2020-08-09] MEDS: AMIODARONE HCL 200 MG TAB PO SCH ×2 (07:54→22:00)
[2020-08-09] MEDS: PANTOPRAZOLE 40 MG TAB PO SCH (07:54)
[2020-08-09] MEDS: DIGOXIN 0.125 MG TAB PO SCH (07:54)
[2020-08-09] MEDS: POTASSIUM CHL 10 Meq TABLET PO SCH (07:55)
[2020-08-09] MEDS: TAMSULOSIN HYDROCHLORIDE 0.4 MG CAP PO SCH (17:09)
[2020-08-10] MEDS: CLINDAMYCIN 600MG IV 50 ML IV SCH ×3 (05:29→22:20)
[2020-08-10] MEDS: FUROSEMIDE 20 MG/2 ML VIAL IV SCH ×2 (05:29→18:16)
[2020-08-10] MEDS: AMIODARONE HCL 200 MG TAB PO SCH ×2 (10:06→22:00)
[2020-08-10] MEDS: POTASSIUM CHL 10 Meq TABLET PO SCH (10:06)
[2020-08-10] MEDS: DIGOXIN 0.125 MG TAB PO SCH (10:06)
[2020-08-10] MEDS: cefTRIAXone 1GM/50ML D5W 50 ML IV SCH (10:06)
[2020-08-10] MEDS: PANTOPRAZOLE 40 MG TAB PO SCH (10:07)
[2020-08-10 14:16] LABS: Basophils # (auto) 0 10 ^3/uL (0-0.2); Basophils % (auto) 0.3 % (0.0-2.0); Eosinophils # (auto) 0 10 ^3/uL (0-0.8); Eosinophils % (auto) 0.2 % (0.0-7.0); Hematocrit 22.5 % (41.0-53.0); Hemoglobin 7.9 g/dL (13.5-17.5); Lymphocytes # (auto) 0.5 10 ^3/uL (0.4-5.4); Mean Corpuscular Hemoglobin 36.7 pg (28.0-32.0); Mean Corpuscular Hgb Conc. 35.1 g/dL (32.0-36.0); Mean Corpuscular Volume 104.6 fL (80.0-100.0); Monocytes # (auto) 0.9 10 ^3/uL (0-1.3); Monocytes % (auto) 9.7 % (0.0-12.0); Neutrophils # (auto) 8.3 10 ^3/uL (1.6-8.6); Neutrophils % (auto) 84.8 % (37.0-80.0); Nucleated Red Blood Cells % 0.4 %; Red Blood Cells 2.15 10^6/uL (4.5-5.90); Red Cell Distribution Width 17.1 % (11.8-14.3); White Blood Cell 9.8 10^3/uL (4.4-10.8)
[2020-08-10 16:59] LABS: Potassium 4.9 mmol/L (3.5-5.1)
[2020-08-10 17:06] LABS: Albumin 2.9 g/dL (3.4-5.0); BUN/Creatinine Ratio 20.1; Calcium 8.1 mg/dL (8.5-10.1)
[2020-08-10 17:09] LABS: Bilirubin, Total 1.2 mg/dL (0.2-1.0); Total Protein 6.9 g/dL (6.4-8.2)
[2020-08-10] MEDS ORDERED: ENOXAPARIN SOD 100 MG/1 ML SYRINGE SC ONE (17:45)
[2020-08-10] MEDS: TAMSULOSIN HYDROCHLORIDE 0.4 MG CAP PO SCH (18:17)
[2020-08-11] MEDS: CLINDAMYCIN 600MG IV 50 ML IV SCH ×3 (05:50→22:45)
[2020-08-11] MEDS: FUROSEMIDE 20 MG/2 ML VIAL IV SCH ×2 (05:50→17:58)
[2020-08-11] MEDS: cefTRIAXone 1GM/50ML D5W 50 ML IV SCH (07:42)
[2020-08-11] MEDS: PANTOPRAZOLE 40 MG TAB PO SCH (08:15)
[2020-08-11] MEDS: POTASSIUM CHL 10 Meq TABLET PO SCH (08:16)
[2020-08-11] MEDS: AMIODARONE HCL 200 MG TAB PO SCH ×2 (08:18→22:47)
[2020-08-11] MEDS: DIGOXIN 0.125 MG TAB PO SCH (09:41)
[2020-08-11] MEDS: ENOXAPARIN SOD 100 MG/1 ML SYRINGE SC SCH (10:18)
[2020-08-11 12:26] LABS: Eosinophils # (auto) 0 10 ^3/uL (0-0.8); Eosinophils % (auto) 0.6 % (0.0-7.0); Hemoglobin 7.4 g/dL (13.5-17.5); Neutrophils # (auto) 6.7 10 ^3/uL (1.6-8.6)
[2020-08-11 12:28] LABS: Basophils # (auto) 0.1 10 ^3/uL (0-0.2); Basophils % (auto) 0.8 % (0.0-2.0); Hematocrit 20.8 % (41.0-53.0); Lymphocytes # (auto) 0.5 10 ^3/uL (0.4-5.4); Lymphocytes % (auto) 5.7 % (10.0-50.0); Mean Corpuscular Hemoglobin 36.9 pg (28.0-32.0); Mean Corpuscular Hgb Conc. 35.5 g/dL (32.0-36.0); Mean Corpuscular Volume 104.1 fL (80.0-100.0); Monocytes % (auto) 12.6 % (0.0-12.0); Neutrophils % (auto) 80.3 % (37.0-80.0); Nucleated Red Blood Cells % 0.3 %; White Blood Cell 8.3 10^3/uL (4.4-10.8)
[2020-08-11 12:30] LABS: INR 1.44 (0.9-1.15); Partial Thromboplastin Time 41.3 sec (23.0-31.2)
[2020-08-11 12:32] LABS: Albumin 2.5 g/dL (3.4-5.0); Calcium 7.5 mg/dL (8.5-10.1); Potassium 4.4 mmol/L (3.5-5.1)
[2020-08-11 12:37] LABS: BUN/Creatinine Ratio 18.2; Bilirubin, Total 0.9 mg/dL (0.2-1.0); Total Protein 6.6 g/dL (6.4-8.2)
[2020-08-11] MEDS: NOREPINEPHRINE 8 MG/250ML KIT 250 ML IV SCH (14:00)
[2020-08-11] MEDS: TAMSULOSIN HYDROCHLORIDE 0.4 MG CAP PO SCH (17:58)
[2020-08-12] VITALS (11 sets, daily range): BP systolic 91–116; BP diastolic 39–54
[2020-08-12] MEDS: NOREPINEPHRINE 8 MG/250ML KIT 250 ML IV SCH ×2 (00:31→21:29)
[2020-08-12] MEDS: CLINDAMYCIN 600MG IV 50 ML IV SCH ×3 (05:50→21:28)
[2020-08-12] MEDS: FUROSEMIDE 20 MG/2 ML VIAL IV SCH ×2 (06:17→17:01)
[2020-08-12 07:19] LABS: Basophils # (auto) 0 10 ^3/uL (0-0.2); Eosinophils % (auto) 0.9 % (0.0-7.0); Hemoglobin 7.1 g/dL (13.5-17.5); Monocytes # (auto) 0.6 10 ^3/uL (0-1.3)
[2020-08-12 07:23] LABS: Basophils % (auto) 0.4 % (0.0-2.0); Eosinophils # (auto) 0 10 ^3/uL (0-0.8); Hematocrit 20.2 % (41.0-53.0); Lymphocytes # (auto) 0.3 10 ^3/uL (0.4-5.4); Lymphocytes % (auto) 6.3 % (10.0-50.0); Mean Corpuscular Hemoglobin 36.8 pg (28.0-32.0); Mean Corpuscular Hgb Conc. 35.3 g/dL (32.0-36.0); Mean Corpuscular Volume 104.3 fL (80.0-100.0); Monocytes % (auto) 11.3 % (0.0-12.0); Neutrophils # (auto) 4.4 10 ^3/uL (1.6-8.6); Neutrophils % (auto) 81.1 % (37.0-80.0); Nucleated Red Blood Cells % 0.2 %; Red Blood Cells 1.94 10^6/uL (4.5-5.90); Red Cell Distribution Width 17.1 % (11.8-14.3); White Blood Cell 5.5 10^3/uL (4.4-10.8)
[2020-08-12 07:52] LABS: Albumin 2.7 g/dL (3.4-5.0); BUN/Creatinine Ratio 19.2; Calcium 7.9 mg/dL (8.5-10.1); Potassium 4.3 mmol/L (3.5-5.1)
[2020-08-12 07:55] LABS: Bilirubin, Total 0.7 mg/dL (0.2-1.0); Total Protein 6.5 g/dL (6.4-8.2)
[2020-08-12] MEDS: POTASSIUM CHL 10 Meq TABLET PO SCH (08:02)
[2020-08-12] MEDS: AMIODARONE HCL 200 MG TAB PO SCH ×2 (08:02→21:28)
[2020-08-12] MEDS: cefTRIAXone 1GM/50ML D5W 50 ML IV SCH (08:02)
[2020-08-12] MEDS: ENOXAPARIN SOD 100 MG/1 ML SYRINGE SC SCH (08:03)
[2020-08-12] MEDS: PANTOPRAZOLE 40 MG TAB PO SCH (08:03)
[2020-08-12] MEDS: DIGOXIN 0.125 MG TAB PO SCH (08:03)
[2020-08-12] MEDS: HYDROcodone-ACET 5/325MG TAB PO PRN ×2 (11:21→21:31)
[2020-08-12] MEDS: TAMSULOSIN HYDROCHLORIDE 0.4 MG CAP PO SCH (17:01)
[2020-08-12] MEDS: TEMAZEPAM 15 MG CAP PO PRN (21:31)
[2020-08-13] VITALS (60 sets, daily range): BP systolic 82–136; BP diastolic 19–84
[2020-08-13 03:20] LABS: Basophils # (auto) 0.1 10 ^3/uL (0-0.2); Eosinophils # (auto) 0.2 10 ^3/uL (0-0.8); Hematocrit 21.8 % (41.0-53.0); Hemoglobin 7.5 g/dL (13.5-17.5); Lymphocytes # (auto) 0.5 10 ^3/uL (0.4-5.4); Lymphocytes % (auto) 10.1 % (10.0-50.0); Mean Corpuscular Hemoglobin 35.5 pg (28.0-32.0); Mean Corpuscular Hgb Conc. 34.3 g/dL (32.0-36.0); Mean Corpuscular Volume 103.6 fL (80.0-100.0); Monocytes # (auto) 0.7 10 ^3/uL (0-1.3); Monocytes % (auto) 12.5 % (0.0-12.0); Neutrophils # (auto) 3.9 10 ^3/uL (1.6-8.6); Neutrophils % (auto) 73.4 % (37.0-80.0); Nucleated Red Blood Cells % 0.3 %; Red Cell Distribution Width 17.5 % (11.8-14.3); White Blood Cell 5.3 10^3/uL (4.4-10.8)
[2020-08-13 03:34] LABS: INR 1.31 (0.9-1.15); Partial Thromboplastin Time 36.7 sec (23.0-31.2)
[2020-08-13 03:41] LABS: Albumin 2.5 g/dL (3.4-5.0); BUN/Creatinine Ratio 18.3; Calcium 7.8 mg/dL (8.5-10.1); Potassium 4.4 mmol/L (3.5-5.1)
[2020-08-13 03:43] LABS: Bilirubin, Total 0.7 mg/dL (0.2-1.0); Total Protein 6.5 g/dL (6.4-8.2)
[2020-08-13] MEDS: FUROSEMIDE 20 MG/2 ML VIAL IV SCH ×2 (05:24→18:15)
[2020-08-13] MEDS: CLINDAMYCIN 600MG IV 50 ML IV SCH ×3 (05:24→22:00)
[2020-08-13] MEDS: NOREPINEPHRINE 8 MG/250ML KIT 250 ML IV SCH ×2 (05:25→23:00)
[2020-08-13] MEDS: cefTRIAXone 1GM/50ML D5W 50 ML IV SCH (09:50)
[2020-08-13] MEDS: PANTOPRAZOLE 40 MG TAB PO SCH (10:20)
[2020-08-13] MEDS: ENOXAPARIN SOD 100 MG/1 ML SYRINGE SC SCH (10:20)
[2020-08-13] MEDS: POTASSIUM CHL 10 Meq TABLET PO SCH (10:20)
[2020-08-13] MEDS: DIGOXIN 0.125 MG TAB PO SCH (10:20)
[2020-08-13] MEDS: AMIODARONE HCL 200 MG TAB PO SCH ×2 (10:20→22:00)
[2020-08-13] MEDS: HYDROcodone-ACET 5/325MG TAB PO PRN ×2 (10:21→23:05)
[2020-08-13] MEDS: TAMSULOSIN HYDROCHLORIDE 0.4 MG CAP PO SCH (18:15)
[2020-08-13] MEDS: DAKINS QUARTER STR 0.125% (NaHypochlorite) 473 ML TOPICAL SOL TOP SCH (22:00)
[2020-08-13] MEDS: TEMAZEPAM 15 MG CAP PO PRN (23:05)
[2020-08-14] VITALS (69 sets, daily range): BP systolic 73–126; BP diastolic 13–81
[2020-08-14] MEDS: CLINDAMYCIN 600MG IV 50 ML IV SCH ×3 (05:02→22:00)
[2020-08-14] MEDS: FUROSEMIDE 20 MG/2 ML VIAL IV SCH ×2 (05:03→17:47)
[2020-08-14] MEDS: HYDROcodone-ACET 5/325MG TAB PO PRN ×2 (08:28→21:26)
[2020-08-14] MEDS: cefTRIAXone 1GM/50ML D5W 50 ML IV SCH (08:55)
[2020-08-14] MEDS: DIGOXIN 0.125 MG TAB PO SCH (10:00)
[2020-08-14] MEDS: NOREPINEPHRINE 8 MG/250ML KIT 250 ML IV SCH ×2 (10:01→19:57)
[2020-08-14] MEDS: ENOXAPARIN SOD 100 MG/1 ML SYRINGE SC SCH (10:04)
[2020-08-14] MEDS: POTASSIUM CHL 10 Meq TABLET PO SCH (10:04)
[2020-08-14] MEDS: AMIODARONE HCL 200 MG TAB PO SCH ×2 (10:04→21:23)
[2020-08-14] MEDS: PANTOPRAZOLE 40 MG TAB PO SCH (10:04)
[2020-08-14] MEDS: DAKINS QUARTER STR 0.125% (NaHypochlorite) 473 ML TOPICAL SOL TOP SCH ×2 (10:07→21:23)
[2020-08-14] MEDS ORDERED: MORPHINE SULFATE INJECTION 2 MG/ML SYRG IV ONE (11:00)
[2020-08-14 12:05] LABS: INR 1.33 (0.9-1.15); Partial Thromboplastin Time 40.2 sec (23.0-31.2)
[2020-08-14] MEDS: MIDODRINE HCL 10 MG TAB PO SCH ×2 (12:12→17:48)
[2020-08-14 13:15] LABS: Basophils # (auto) 0 10 ^3/uL (0-0.2); Basophils % (auto) 0.6 % (0.0-2.0); Eosinophils # (auto) 0.1 10 ^3/uL (0-0.8); Eosinophils % (auto) 1.7 % (0.0-7.0); Hematocrit 22.2 % (41.0-53.0); Hemoglobin 7.4 g/dL (13.5-17.5); Lymphocytes # (auto) 0.3 10 ^3/uL (0.4-5.4); Lymphocytes % (auto) 4.5 % (10.0-50.0); Mean Corpuscular Hemoglobin 35.5 pg (28.0-32.0); Mean Corpuscular Hgb Conc. 33.3 g/dL (32.0-36.0); Mean Corpuscular Volume 106.7 fL (80.0-100.0); Monocytes # (auto) 0.7 10 ^3/uL (0-1.3); Monocytes % (auto) 12.2 % (0.0-12.0); Neutrophils # (auto) 4.9 10 ^3/uL (1.6-8.6); Nucleated Red Blood Cells % 0.3 %; Red Blood Cells 2.08 10^6/uL (4.5-5.90); Red Cell Distribution Width 18.1 % (11.8-14.3); White Blood Cell 6.1 10^3/uL (4.4-10.8)
[2020-08-14] MEDS: TAMSULOSIN HYDROCHLORIDE 0.4 MG CAP PO SCH (17:48)
[2020-08-14 20:38] LABS: Albumin 2.5 g/dL (3.4-5.0); Calcium 7.9 mg/dL (8.5-10.1); Potassium 4.7 mmol/L (3.5-5.1)
[2020-08-14 20:43] LABS: Bilirubin, Total 0.5 mg/dL (0.2-1.0); Total Protein 6.6 g/dL (6.4-8.2)
[2020-08-14] MEDS ORDERED: WARFARIN SODIUM 2 MG TAB PO ONE (21:00)
[2020-08-14] MEDS: TEMAZEPAM 15 MG CAP PO PRN (21:26)
[2020-08-15] VITALS (72 sets, daily range): BP systolic 80–139; BP diastolic 24–61
[2020-08-15 04:26] LABS: Basophils # (auto) 0 10 ^3/uL (0-0.2); Basophils % (auto) 0.8 % (0.0-2.0); Eosinophils # (auto) 0.2 10 ^3/uL (0-0.8); Eosinophils % (auto) 2.9 % (0.0-7.0); Hematocrit 22.9 % (41.0-53.0); Hemoglobin 7.6 g/dL (13.5-17.5); Lymphocytes # (auto) 0.5 10 ^3/uL (0.4-5.4); Lymphocytes % (auto) 8.7 % (10.0-50.0); Mean Corpuscular Hemoglobin 35.6 pg (28.0-32.0); Mean Corpuscular Hgb Conc. 33.3 g/dL (32.0-36.0); Mean Corpuscular Volume 106.9 fL (80.0-100.0); Monocytes # (auto) 0.7 10 ^3/uL (0-1.3); Monocytes % (auto) 13.2 % (0.0-12.0); Neutrophils # (auto) 4.1 10 ^3/uL (1.6-8.6); Neutrophils % (auto) 74.4 % (37.0-80.0); Nucleated Red Blood Cells % 0.3 %; Red Blood Cells 2.14 10^6/uL (4.5-5.90); Red Cell Distribution Width 18.2 % (11.8-14.3); White Blood Cell 5.6 10^3/uL (4.4-10.8)
[2020-08-15 04:41] LABS: INR 1.29 (0.9-1.15)
[2020-08-15] MEDS: FUROSEMIDE 20 MG/2 ML VIAL IV SCH ×2 (05:25→17:35)
[2020-08-15] MEDS: CLINDAMYCIN 600MG IV 50 ML IV SCH ×3 (05:26→21:41)
[2020-08-15] MEDS: MIDODRINE HCL 10 MG TAB PO SCH ×3 (06:19→17:36)
[2020-08-15] MEDS: NOREPINEPHRINE 8 MG/250ML KIT 250 ML IV SCH (09:00)
[2020-08-15] MEDS: DIGOXIN 0.125 MG TAB PO SCH (09:01)
[2020-08-15] MEDS: cefTRIAXone 1GM/50ML D5W 50 ML IV SCH (09:07)
[2020-08-15] MEDS: HYDROcodone-ACET 5/325MG TAB PO PRN ×3 (09:08→21:43)
[2020-08-15] MEDS: AMIODARONE HCL 200 MG TAB PO SCH ×2 (09:57→21:47)
[2020-08-15] MEDS: PANTOPRAZOLE 40 MG TAB PO SCH (09:58)
[2020-08-15] MEDS: POTASSIUM CHL 10 Meq TABLET PO SCH (09:58)
[2020-08-15] MEDS: DAKINS QUARTER STR 0.125% (NaHypochlorite) 473 ML TOPICAL SOL TOP SCH ×2 (09:58→21:49)
[2020-08-15] MEDS ORDERED: HEPARIN 1,000 UNITS/ml 1ML VIAL IV ONE (15:45)
[2020-08-15] MEDS ORDERED: WARFARIN SODIUM 2 MG TAB PO ONE (17:00)
[2020-08-15] MEDS: HEPARIN SODIUM (PORCINE) 5000 UNITS/ML 1ML VIAL SC SCH ×2 (17:33→21:45)
[2020-08-15] MEDS: TAMSULOSIN HYDROCHLORIDE 0.4 MG CAP PO SCH (17:35)
[2020-08-16] VITALS (70 sets, daily range): BP systolic 82–106; BP diastolic 36–64
[2020-08-16] MEDS: CLINDAMYCIN 600MG IV 50 ML IV SCH ×3 (05:19→20:56)
[2020-08-16] MEDS: FUROSEMIDE 20 MG/2 ML VIAL IV SCH ×2 (05:20→18:09)
[2020-08-16] MEDS: MIDODRINE HCL 10 MG TAB PO SCH ×3 (05:20→18:09)
[2020-08-16 05:45] LABS: Basophils # (auto) 0 10 ^3/uL (0-0.2); Basophils % (auto) 0.4 % (0.0-2.0); Eosinophils # (auto) 0 10 ^3/uL (0-0.8); Eosinophils % (auto) 0.9 % (0.0-7.0); Hematocrit 22.6 % (41.0-53.0); Hemoglobin 7.7 g/dL (13.5-17.5); Lymphocytes # (auto) 0.2 10 ^3/uL (0.4-5.4); Lymphocytes % (auto) 4.7 % (10.0-50.0); Mean Corpuscular Hgb Conc. 33.9 g/dL (32.0-36.0); Mean Corpuscular Volume 106.3 fL (80.0-100.0); Monocytes # (auto) 0.4 10 ^3/uL (0-1.3); Monocytes % (auto) 8.8 % (0.0-12.0); Neutrophils # (auto) 4.1 10 ^3/uL (1.6-8.6); Neutrophils % (auto) 85.2 % (37.0-80.0); Nucleated Red Blood Cells % 0.3 %; Red Blood Cells 2.13 10^6/uL (4.5-5.90); Red Cell Distribution Width 18.1 % (11.8-14.3); White Blood Cell 4.8 10^3/uL (4.4-10.8)
[2020-08-16 06:04] LABS: Albumin 2.4 g/dL (3.4-5.0); Calcium 7.8 mg/dL (8.5-10.1); Potassium 4.3 mmol/L (3.5-5.1)
[2020-08-16 06:05] LABS: INR 1.7 (0.9-1.15); Partial Thromboplastin Time 37.9 sec (23.0-31.2)
[2020-08-16 06:07] LABS: Bilirubin, Total 0.4 mg/dL (0.2-1.0); Total Protein 6.5 g/dL (6.4-8.2)
[2020-08-16] MEDS: cefTRIAXone 1GM/50ML D5W 50 ML IV SCH (08:46)
[2020-08-16] MEDS ORDERED: HEPARIN 1,000 UNITS/ml 1ML VIAL IV SCH (10:00)
[2020-08-16] MEDS: PANTOPRAZOLE 40 MG TAB PO SCH (10:01)
[2020-08-16] MEDS: POTASSIUM CHL 10 Meq TABLET PO SCH (10:01)
[2020-08-16] MEDS: AMIODARONE HCL 200 MG TAB PO SCH ×2 (10:01→20:57)
[2020-08-16] MEDS: DICLOFENAC 50 MG PO PRN (12:07)
[2020-08-16] MEDS: NOREPINEPHRINE 8 MG/250ML KIT 250 ML IV SCH (13:49)
[2020-08-16] MEDS: DAKINS QUARTER STR 0.125% (NaHypochlorite) 473 ML TOPICAL SOL TOP SCH (15:20)
[2020-08-16] MEDS: TAMSULOSIN HYDROCHLORIDE 0.4 MG CAP PO SCH (18:09)
[2020-08-16] MEDS: HYDROcodone-ACET 5/325MG TAB PO PRN (20:58)
[2020-08-17] VITALS (36 sets, daily range): BP systolic 86–123; BP diastolic 31–95
[2020-08-17] MEDS: DAKINS QUARTER STR 0.125% (NaHypochlorite) 473 ML TOPICAL SOL TOP SCH ×3 (02:00→22:00)
[2020-08-17] MEDS: CLINDAMYCIN 600MG IV 50 ML IV SCH ×3 (05:30→21:58)
[2020-08-17] MEDS: MIDODRINE HCL 10 MG TAB PO SCH ×3 (05:31→17:25)
[2020-08-17] MEDS: FUROSEMIDE 20 MG/2 ML VIAL IV SCH (05:31)
[2020-08-17] MEDS: cefTRIAXone 1GM/50ML D5W 50 ML IV SCH (09:18)
[2020-08-17] MEDS: AMIODARONE HCL 200 MG TAB PO SCH ×2 (10:00→21:58)
[2020-08-17] MEDS: POTASSIUM CHL 10 Meq TABLET PO SCH (10:00)
[2020-08-17] MEDS: PANTOPRAZOLE 40 MG TAB PO SCH (10:00)
[2020-08-17] MEDS: NOREPINEPHRINE 8 MG/250ML KIT 250 ML IV SCH (11:30)
[2020-08-17] MEDS ORDERED: WARFARIN SODIUM 5 MG TAB PO ONE (17:00)
[2020-08-17] MEDS: TAMSULOSIN HYDROCHLORIDE 0.4 MG CAP PO SCH (17:25)
[2020-08-17] MEDS: TEMAZEPAM 15 MG CAP PO PRN (21:59)
[2020-08-17] MEDS: DICLOFENAC 50 MG PO PRN (21:59)
[2020-08-18] VITALS (47 sets, daily range): BP systolic 76–140; BP diastolic 24–112
[2020-08-18] MEDS: NOREPINEPHRINE 8 MG/250ML KIT 250 ML IV SCH ×2 (00:54→10:01)
[2020-08-18 04:47] LABS: Basophils # (auto) 0 10 ^3/uL (0-0.2); Basophils % (auto) 0.6 % (0.0-2.0); Eosinophils # (auto) 0 10 ^3/uL (0-0.8); Eosinophils % (auto) 0.7 % (0.0-7.0); Lymphocytes # (auto) 0.2 10 ^3/uL (0.4-5.4); Monocytes # (auto) 0.4 10 ^3/uL (0-1.3); Nucleated Red Blood Cells % 0.1 %; White Blood Cell 4.5 10^3/uL (4.4-10.8)
[2020-08-18 04:49] LABS: Hematocrit 22.2 % (41.0-53.0); Hemoglobin 7.5 g/dL (13.5-17.5); Lymphocytes % (auto) 5.5 % (10.0-50.0); Mean Corpuscular Hemoglobin 35.6 pg (28.0-32.0); Mean Corpuscular Volume 104.4 fL (80.0-100.0); Monocytes % (auto) 9.6 % (0.0-12.0); Neutrophils # (auto) 3.7 10 ^3/uL (1.6-8.6); Neutrophils % (auto) 83.6 % (37.0-80.0); Red Blood Cells 2.12 10^6/uL (4.5-5.90); Red Cell Distribution Width 17.7 % (11.8-14.3)
[2020-08-18 04:56] LABS: INR 2.64 (0.9-1.15)
[2020-08-18] MEDS: MIDODRINE HCL 10 MG TAB PO SCH ×3 (05:01→17:48)
[2020-08-18] MEDS: CLINDAMYCIN 600MG IV 50 ML IV SCH ×3 (05:01→22:51)
[2020-08-18] MEDS: cefTRIAXone 1GM/50ML D5W 50 ML IV SCH (09:06)
[2020-08-18] MEDS: FUROSEMIDE 20 MG/2 ML VIAL IV SCH (10:00)
[2020-08-18] MEDS: PANTOPRAZOLE 40 MG TAB PO SCH (10:01)
[2020-08-18] MEDS: AMIODARONE HCL 200 MG TAB PO SCH ×2 (10:01→22:00)
[2020-08-18] MEDS: DAKINS QUARTER STR 0.125% (NaHypochlorite) 473 ML TOPICAL SOL TOP SCH ×2 (10:01→22:00)
[2020-08-18] MEDS: TAMSULOSIN HYDROCHLORIDE 0.4 MG CAP PO SCH (17:48)
[2020-08-19] VITALS (76 sets, daily range): BP systolic 63–140; BP diastolic 23–68
[2020-08-19] MEDS: DAKINS QUARTER STR 0.125% (NaHypochlorite) 473 ML TOPICAL SOL TOP SCH ×2 (04:00→22:11)
[2020-08-19] MEDS: CLINDAMYCIN 600MG IV 50 ML IV SCH ×3 (06:05→22:11)
[2020-08-19] MEDS: MIDODRINE HCL 10 MG TAB PO SCH ×3 (06:05→17:56)
[2020-08-19] MEDS: cefTRIAXone 1GM/50ML D5W 50 ML IV SCH (09:50)
[2020-08-19] MEDS: AMIODARONE HCL 200 MG TAB PO SCH ×2 (10:00→22:13)
[2020-08-19] MEDS: PANTOPRAZOLE 40 MG TAB PO SCH (10:25)
[2020-08-19] MEDS: FUROSEMIDE 20 MG/2 ML VIAL IV SCH (10:25)
[2020-08-19 14:55] LABS: Basophils # (auto) 0 10 ^3/uL (0-0.2); Lymphocytes # (auto) 0.2 10 ^3/uL (0.4-5.4); Lymphocytes % (auto) 4.7 % (10.0-50.0); Mean Corpuscular Hemoglobin 35.2 pg (28.0-32.0); Monocytes # (auto) 0.4 10 ^3/uL (0-1.3)
[2020-08-19 14:57] LABS: Basophils % (auto) 0.9 % (0.0-2.0); Eosinophils # (auto) 0.1 10 ^3/uL (0-0.8); Eosinophils % (auto) 1.2 % (0.0-7.0); Hematocrit 23.5 % (41.0-53.0); Mean Corpuscular Hgb Conc. 33.9 g/dL (32.0-36.0); Monocytes % (auto) 8.7 % (0.0-12.0); Neutrophils # (auto) 4.2 10 ^3/uL (1.6-8.6); Neutrophils % (auto) 84.5 % (37.0-80.0); Nucleated Red Blood Cells % 0.2 %; Red Blood Cells 2.26 10^6/uL (4.5-5.90); Red Cell Distribution Width 17.9 % (11.8-14.3); White Blood Cell 4.9 10^3/uL (4.4-10.8)
[2020-08-19 15:09] LABS: BUN/Creatinine Ratio 13.2; Calcium 7.6 mg/dL (8.5-10.1); Potassium 4.1 mmol/L (3.5-5.1)
[2020-08-19 15:24] LABS: Partial Thromboplastin Time 48.4 sec (23.0-31.2)
[2020-08-19 15:53] LABS: INR 5.16 (0.9-1.15)
[2020-08-19] MEDS ORDERED: PHYTONADIONE (VIT K)10 MG/ML 1ML VIAL SUBCUT ONE (16:00)
[2020-08-19] MEDS: NOREPINEPHRINE 8 MG/250ML KIT 250 ML IV SCH (16:11)
[2020-08-19] MEDS: TAMSULOSIN HYDROCHLORIDE 0.4 MG CAP PO SCH (17:56)
[2020-08-19] MEDS: DICLOFENAC 50 MG PO PRN (22:14)
[2020-08-20] VITALS (88 sets, daily range): BP systolic 75–124; BP diastolic 25–87
[2020-08-20 03:51] LABS: Creatinine, Urine 266 mg/dL (30.0-125.0); Sodium Urine 6 mmol/L (40-220)
[2020-08-20 04:15] LABS: Urine Bacteria NONE SEEN /hpf (None Seen); Urine Blood 3+ /uL (Negative); Urine Hyaline Cast MANY /lpf (0 - 2); Urine Mucus FEW (None Seen); Urine Specific Gravity 1.021 (1.001-1.035); Urine WBC 37 /hpf (0 - 3)
[2020-08-20 05:18] LABS: Basophils # (auto) 0 10 ^3/uL (0-0.2); Eosinophils # (auto) 0 10 ^3/uL (0-0.8); Hemoglobin 7.7 g/dL (13.5-17.5); Lymphocytes # (auto) 0.2 10 ^3/uL (0.4-5.4); Monocytes # (auto) 0.3 10 ^3/uL (0-1.3); Neutrophils # (auto) 3.2 10 ^3/uL (1.6-8.6); Red Cell Distribution Width 17.9 % (11.8-14.3)
[2020-08-20 05:21] LABS: Basophils % (auto) 0.7 % (0.0-2.0); Eosinophils % (auto) 0.9 % (0.0-7.0); Hematocrit 22.5 % (41.0-53.0); Lymphocytes % (auto) 5.4 % (10.0-50.0); Mean Corpuscular Hemoglobin 35.2 pg (28.0-32.0); Mean Corpuscular Hgb Conc. 34.2 g/dL (32.0-36.0); Mean Corpuscular Volume 102.9 fL (80.0-100.0); Monocytes % (auto) 8.1 % (0.0-12.0); Neutrophils % (auto) 84.9 % (37.0-80.0); Nucleated Red Blood Cells % 0.1 %; Red Blood Cells 2.19 10^6/uL (4.5-5.90); White Blood Cell 3.8 10^3/uL (4.4-10.8)
[2020-08-20 05:36] LABS: Potassium 4.8 mmol/L (3.5-5.1)
[2020-08-20] MEDS: CLINDAMYCIN 600MG IV 50 ML IV SCH ×3 (05:36→21:38)
[2020-08-20] MEDS: MIDODRINE HCL 10 MG TAB PO SCH ×3 (05:37→18:27)
[2020-08-20] MEDS: NOREPINEPHRINE 8 MG/250ML KIT 250 ML IV SCH ×2 (05:41→22:45)
[2020-08-20 05:53] LABS: Albumin 2.4 g/dL (3.4-5.0); Bilirubin, Direct 0.1 mg/dL (0-0.2); Bilirubin, Total 0.4 mg/dL (0.2-1.0); Calcium 7.6 mg/dL (8.5-10.1); Total Protein 6.1 g/dL (6.4-8.2)
[2020-08-20] MEDS: DICLOFENAC 50 MG PO PRN (09:00)
[2020-08-20] MEDS: AMIODARONE HCL 200 MG TAB PO SCH ×2 (09:40→21:37)
[2020-08-20] MEDS: FUROSEMIDE 20 MG/2 ML VIAL IV SCH (09:56)
[2020-08-20] MEDS: cefTRIAXone 1GM/50ML D5W 50 ML IV SCH (09:56)
[2020-08-20] MEDS: PANTOPRAZOLE 40 MG TAB PO SCH (09:57)
[2020-08-20] MEDS: DAKINS QUARTER STR 0.125% (NaHypochlorite) 473 ML TOPICAL SOL TOP SCH ×2 (09:57→23:30)
[2020-08-20 10:46] LABS: INR 2.78 (0.9-1.15); Partial Thromboplastin Time 47.1 sec (23.0-31.2)
[2020-08-20] MEDS: TAMSULOSIN HYDROCHLORIDE 0.4 MG CAP PO SCH (18:25)
[2020-08-20] MEDS: SODIUM CHLORIDE 0.9% 1,000 ML IV SCH (21:29)
[2020-08-21] VITALS (91 sets, daily range): BP systolic 64–115; BP diastolic 32–58
[2020-08-21 03:34] LABS: Eosinophils # (auto) 0 10 ^3/uL (0-0.8); Eosinophils % (auto) 0.7 % (0.0-7.0); Lymphocytes # (auto) 0.2 10 ^3/uL (0.4-5.4); Nucleated Red Blood Cells % 0.1 %; White Blood Cell 5.2 10^3/uL (4.4-10.8)
[2020-08-21 03:36] LABS: Basophils # (auto) 0.1 10 ^3/uL (0-0.2); Hematocrit 23.3 % (41.0-53.0); Hemoglobin 7.9 g/dL (13.5-17.5); Mean Corpuscular Hemoglobin 34.9 pg (28.0-32.0); Mean Corpuscular Hgb Conc. 33.8 g/dL (32.0-36.0); Mean Corpuscular Volume 103.3 fL (80.0-100.0); Monocytes # (auto) 0.3 10 ^3/uL (0-1.3); Monocytes % (auto) 4.8 % (0.0-12.0); Neutrophils # (auto) 4.7 10 ^3/uL (1.6-8.6); Neutrophils % (auto) 89.5 % (37.0-80.0); Red Blood Cells 2.25 10^6/uL (4.5-5.90); Red Cell Distribution Width 17.6 % (11.8-14.3)
[2020-08-21 03:51] LABS: INR 1.75 (0.9-1.15); Partial Thromboplastin Time 40.2 sec (23.0-31.2)
[2020-08-21 03:52] LABS: Calcium 7.4 mg/dL (8.5-10.1); Potassium 4.2 mmol/L (3.5-5.1)
[2020-08-21 03:54] LABS: BUN/Creatinine Ratio 11.8
[2020-08-21] MEDS: MIDODRINE HCL 10 MG TAB PO SCH ×3 (05:55→18:00)
[2020-08-21] MEDS: CLINDAMYCIN 600MG IV 50 ML IV SCH ×3 (05:55→21:49)
[2020-08-21] MEDS: AMIODARONE HCL 200 MG TAB PO SCH ×2 (10:00→21:17)
[2020-08-21] MEDS: SODIUM CHLORIDE 0.9% 1,000 ML IV SCH (10:00)
[2020-08-21] MEDS: PANTOPRAZOLE 40 MG TAB PO SCH (10:01)
[2020-08-21] MEDS: cefTRIAXone 1GM/50ML D5W 50 ML IV SCH (10:01)
[2020-08-21] MEDS: DAKINS QUARTER STR 0.125% (NaHypochlorite) 473 ML TOPICAL SOL TOP SCH ×2 (10:01→22:00)
[2020-08-21] MEDS: DOPamine 1600MCG/ML D5W 250 ML IV SCH (10:41)
[2020-08-21] MEDS: NOREPINEPHRINE 8 MG/250ML KIT 250 ML IV SCH ×3 (10:45→21:51)
[2020-08-21] MEDS ORDERED: MILRINONE 20MG/100ML 100 ML IV SCH (11:15)
[2020-08-21] MEDS ORDERED: ENOXAPARIN SOD 100 MG/1 ML SYRINGE SC ONE (11:15)
[2020-08-21] MEDS: PHENYLEPHRINE INJ 40 MG in SODIUM CHL 0.9% 250 ML IV SCH ×2 (14:19→22:40)
[2020-08-21] MEDS ORDERED: SODIUM BICARBONATE 8.4 % INJ 50ML VIAL IV ONE ×3 (15:15→19:30)
[2020-08-21] MEDS ORDERED: SODIUM BICARBONATE 8.4% INJ 50ML SYRINGE ONE (15:18)
[2020-08-21] MEDS ORDERED: BUMETANIDE 2.5mg/10ml (0.25 mg/ml) INJ IV ONE (15:45)
[2020-08-21] MEDS ORDERED: LIDOCAINE 1% (LOCAL ANESTH.) PF 5ml SDV ID ONE (17:15)
[2020-08-21] MEDS ORDERED: HEPARIN 1,000 UNITS/ml 1ML VIAL ONE (17:16)
[2020-08-21] MEDS: BUMETANIDE INJECTION 25 MG in GIVE UN-DILUTED 0 ML IV SCH (17:50)
[2020-08-21] MEDS: SODIUM BICARBONATE 50ML VIAL 150 ML in D5W 5% 1,000 ML IV SCH (18:00)
[2020-08-21] MEDS: TAMSULOSIN HYDROCHLORIDE 0.4 MG CAP PO SCH (18:00)
[2020-08-21] MEDS ORDERED: HEPARIN 1,000 UNITS/ml 1ML VIAL IV ONE (18:00)
[2020-08-21] MEDS: SODIUM CHLOR 0.9% PF (SALINE LOCK) 10ML VIAL/SYR IV SCH (21:50)
[2020-08-22] VITALS (82 sets, daily range): BP systolic 81–130; BP diastolic 36–75
[2020-08-22] MEDS: NOREPINEPHRINE 8 MG/250ML KIT 250 ML IV SCH ×2 (01:16→18:15)
[2020-08-22 04:54] LABS: Albumin 2.7 g/dL (3.4-5.0); Calcium 7.1 mg/dL (8.5-10.1)
[2020-08-22 05:00] LABS: BUN/Creatinine Ratio 12.5; Bilirubin, Total 0.5 mg/dL (0.2-1.0); Total Protein 6.6 g/dL (6.4-8.2)
[2020-08-22] MEDS: SODIUM BICARBONATE 50ML VIAL 150 ML in D5W 5% 1,000 ML IV SCH ×2 (06:00→16:45)
[2020-08-22] MEDS: CLINDAMYCIN 600MG IV 50 ML IV SCH ×3 (06:30→21:36)
[2020-08-22] MEDS: MIDODRINE HCL 10 MG TAB PO SCH ×3 (06:53→17:49)
[2020-08-22] MEDS ORDERED: ALBUMIN 25% 100 ML IV ONE (10:00)
[2020-08-22] MEDS: AMIODARONE HCL 200 MG TAB PO SCH ×2 (10:00→21:36)
[2020-08-22] MEDS: cefTRIAXone 1GM/50ML D5W 50 ML IV SCH (10:24)
[2020-08-22] MEDS: SODIUM CHLOR 0.9% PF (SALINE LOCK) 10ML VIAL/SYR IV SCH ×2 (10:25→21:36)
[2020-08-22] MEDS: VILANTEROL PO SCH (10:26)
[2020-08-22] MEDS: ENOXAPARIN SOD 100 MG/1 ML SYRINGE SC SCH (10:26)
[2020-08-22] MEDS: [UNRECOGNIZED DRUG - OTHER] PO SCH (10:26)
[2020-08-22] MEDS: UMECLIDINIUM PO SCH (10:26)
[2020-08-22] MEDS: DAKINS QUARTER STR 0.125% (NaHypochlorite) 473 ML TOPICAL SOL TOP SCH ×2 (10:27→21:36)
[2020-08-22] MEDS: PANTOPRAZOLE 40 MG TAB PO SCH (10:27)
[2020-08-22] MEDS: DOPamine 1600MCG/ML D5W 250 ML IV SCH (10:30)
[2020-08-22] MEDS: BUMETANIDE INJECTION 25 MG in GIVE UN-DILUTED 0 ML IV SCH (12:47)
[2020-08-22] MEDS ORDERED: HEPARIN 1,000 UNITS/ml 1ML VIAL IV ONE (16:30)
[2020-08-22] MEDS: TAMSULOSIN HYDROCHLORIDE 0.4 MG CAP PO SCH (17:48)
[2020-08-22] MEDS ORDERED: EPOETIN ALFA 10,000 UNIT/1 ML VIAL SC ONE (21:00)
[2020-08-22] MEDS: PHENYLEPHRINE INJ 40 MG in SODIUM CHL 0.9% 250 ML IV SCH (22:35)
[2020-08-23] VITALS (61 sets, daily range): BP systolic 77–135; BP diastolic 28–84
[2020-08-23] MEDS: SODIUM BICARBONATE 50ML VIAL 150 ML in D5W 5% 1,000 ML IV SCH ×2 (05:00→08:00)
[2020-08-23 06:07] LABS: Hemoglobin 7.2 g/dL (13.5-17.5)
[2020-08-23] MEDS: MIDODRINE HCL 10 MG TAB PO SCH ×3 (06:24→18:04)
[2020-08-23] MEDS: CLINDAMYCIN 600MG IV 50 ML IV SCH ×3 (06:24→21:11)
[2020-08-23 06:35] LABS: Potassium 3.6 mmol/L (3.5-5.1)
[2020-08-23 06:48] LABS: % Iron Saturation 18.8 % (20-55)
[2020-08-23 06:52] LABS: Albumin 3.1 g/dL (3.4-5.0); BUN/Creatinine Ratio 11.3; Bilirubin, Total 0.5 mg/dL (0.2-1.0); Calcium 7.1 mg/dL (8.5-10.1); Total Protein 6.4 g/dL (6.4-8.2)
[2020-08-23] MEDS: DOPamine 1600MCG/ML D5W 250 ML IV SCH (07:30)
[2020-08-23] MEDS: cefTRIAXone 1GM/50ML D5W 50 ML IV SCH (08:36)
[2020-08-23] MEDS: BUMETANIDE INJECTION 25 MG in GIVE UN-DILUTED 0 ML IV SCH (08:40)
[2020-08-23] MEDS ORDERED: POTASSIUM CHL 20MEQ/100ML 100 ML IV ONE (08:45)
[2020-08-23] MEDS: NOREPINEPHRINE 8 MG/250ML KIT 250 ML IV SCH (08:45)
[2020-08-23] MEDS ORDERED: IODIXANOL 320MG/ML 100ML BTL IV ONE (08:59)
[2020-08-23] MEDS ORDERED: LIDOCAINE 2%HCL (LOCAL ANESTH.) INJ 20ML MDV ONE (08:59)
[2020-08-23] MEDS: [UNRECOGNIZED DRUG - OTHER] PO SCH (09:00)
[2020-08-23] MEDS: UMECLIDINIUM PO SCH (09:00)
[2020-08-23] MEDS: VILANTEROL PO SCH (09:00)
[2020-08-23] MEDS ORDERED: MIDAZOLAM HCL 2MG/2ML 2ml VIAL (1mg/ml) ONE (09:37)
[2020-08-23] MEDS ORDERED: fentaNYL CITRATE 100 MCG/2 ML VL ONE (09:37)
[2020-08-23] MEDS: AMIODARONE HCL 200 MG TAB PO SCH ×2 (10:00→21:12)
[2020-08-23] MEDS ORDERED: NALOXONE HCL 0.4 MG/ML VIAL ONE ×2 (10:30)
[2020-08-23] MEDS ORDERED: SODIUM BICARBONATE 8.4% INJ 50ML SYRINGE IV ONE (12:43)
[2020-08-23] MEDS ORDERED: EPINEPHrine HCL 1 MG/10 ML SYRG IV ONE (12:43)
[2020-08-23] MEDS: SODIUM CHLOR 0.9% PF (SALINE LOCK) 10ML VIAL/SYR IV SCH ×2 (13:10→21:12)
[2020-08-23] MEDS: ENOXAPARIN SOD 100 MG/1 ML SYRINGE SC SCH (13:10)
[2020-08-23] MEDS: DAKINS QUARTER STR 0.125% (NaHypochlorite) 473 ML TOPICAL SOL TOP SCH ×2 (13:10→21:12)
[2020-08-23] MEDS: PANTOPRAZOLE 40 MG TAB PO SCH (13:10)
[2020-08-23] MEDS: PHENYLEPHRINE INJ 40 MG in SODIUM CHL 0.9% 250 ML IV SCH (14:09)
[2020-08-23] MEDS: TAMSULOSIN HYDROCHLORIDE 0.4 MG CAP PO SCH (18:04)
[2020-08-24] VITALS (59 sets, daily range): BP systolic 92–144; BP diastolic 19–59
[2020-08-24] MEDS: SODIUM BICARBONATE 50ML VIAL 150 ML in D5W 5% 1,000 ML IV SCH ×2 (02:30→14:47)
[2020-08-24 05:33] LABS: Potassium 3.7 mmol/L (3.5-5.1)
[2020-08-24 05:38] LABS: Albumin 2.8 g/dL (3.4-5.0); BUN/Creatinine Ratio 10.4
[2020-08-24 05:41] LABS: Bilirubin, Total 0.5 mg/dL (0.2-1.0)
[2020-08-24] MEDS: CLINDAMYCIN 600MG IV 50 ML IV SCH (06:14)
[2020-08-24] MEDS: MIDODRINE HCL 10 MG TAB PO SCH ×3 (06:14→18:00)
[2020-08-24] MEDS: NOREPINEPHRINE 8 MG/250ML KIT 250 ML IV SCH (06:15)
[2020-08-24] MEDS ORDERED: SODIUM CHL 0.9% 1000 ML BAG XX ONE (07:00)
[2020-08-24] MEDS: PHENYLEPHRINE INJ 40 MG in SODIUM CHL 0.9% 250 ML IV SCH (07:55)
[2020-08-24] MEDS: cefTRIAXone 1GM/50ML D5W 50 ML IV SCH (09:00)
[2020-08-24] MEDS: BUMETANIDE INJECTION 25 MG in GIVE UN-DILUTED 0 ML IV SCH (09:08)
[2020-08-24] MEDS: PANTOPRAZOLE 40 MG TAB PO SCH (10:00)
[2020-08-24] MEDS: SODIUM CHLOR 0.9% PF (SALINE LOCK) 10ML VIAL/SYR IV SCH ×2 (10:00→22:22)
[2020-08-24] MEDS: UMECLIDINIUM PO SCH (10:00)
[2020-08-24] MEDS: ENOXAPARIN SOD 100 MG/1 ML SYRINGE SC SCH (10:00)
[2020-08-24] MEDS: VILANTEROL PO SCH (10:00)
[2020-08-24] MEDS: AMIODARONE HCL 200 MG TAB PO SCH ×2 (10:00→22:00)
[2020-08-24] MEDS: DAKINS QUARTER STR 0.125% (NaHypochlorite) 473 ML TOPICAL SOL TOP SCH ×2 (10:00→22:00)
[2020-08-24] MEDS: [UNRECOGNIZED DRUG - OTHER] PO SCH (10:00)
[2020-08-24] MEDS: DOPamine 1600MCG/ML D5W 250 ML IV SCH (10:15)
[2020-08-24 11:55] LABS: Hepatitis A Ab IgM Negative; Hepatitis B Surface Antigen Negative (Negative)
[2020-08-24 11:56] LABS: Hepatitis C Antibody Negative (Negative)
[2020-08-24 12:00] LABS: Hepatitis B Core IgM Positive
[2020-08-24] MEDS: MEROPENEM 500MG IVPB 50 ML IV SCH (14:00)
[2020-08-24 16:00] LABS: Basophils # (auto) 0 10 ^3/uL (0-0.2); Eosinophils # (auto) 0 10 ^3/uL (0-0.8); Hemoglobin 7.6 g/dL (13.5-17.5); Lymphocytes # (auto) 0.2 10 ^3/uL (0.4-5.4); Neutrophils # (auto) 6.1 10 ^3/uL (1.6-8.6); Red Cell Distribution Width 17.8 % (11.8-14.3); White Blood Cell 6.9 10^3/uL (4.4-10.8)
[2020-08-24 16:02] LABS: Basophils % (auto) 0.3 % (0.0-2.0); Eosinophils % (auto) 0.3 % (0.0-7.0); Hematocrit 22.3 % (41.0-53.0); Lymphocytes % (auto) 2.8 % (10.0-50.0); Mean Corpuscular Hemoglobin 34.7 pg (28.0-32.0); Mean Corpuscular Hgb Conc. 34.1 g/dL (32.0-36.0); Mean Corpuscular Volume 101.6 fL (80.0-100.0); Monocytes # (auto) 0.5 10 ^3/uL (0-1.3); Monocytes % (auto) 7.7 % (0.0-12.0); Neutrophils % (auto) 88.9 % (37.0-80.0); Nucleated Red Blood Cells % 0.1 %
[2020-08-24 16:37] LABS: INR 1.18 (0.9-1.15); Partial Thromboplastin Time 40.4 sec (23.0-31.2)
[2020-08-24] MEDS: TAMSULOSIN HYDROCHLORIDE 0.4 MG CAP PO SCH (18:00)
[2020-08-24] MEDS ORDERED: EPOETIN ALFA 10,000 UNIT/1 ML VIAL SC ONE (21:00)
[2020-08-24] MEDS ORDERED: MEROPENEM 1GM IVPB 100 ML IV ONE (21:28)
[2020-08-25] VITALS (69 sets, daily range): BP systolic 61–141; BP diastolic 4–57
[2020-08-25] MEDS: PHENYLEPHRINE INJ 40 MG in SODIUM CHL 0.9% 250 ML IV SCH ×2 (00:35→17:15)
[2020-08-25] MEDS: SODIUM BICARBONATE 50ML VIAL 150 ML in D5W 5% 1,000 ML IV SCH ×3 (01:07→22:20)
[2020-08-25] MEDS: MEROPENEM 500MG IVPB 50 ML IV SCH ×2 (02:00→15:30)
[2020-08-25 05:00] LABS: Calcium 7.3 mg/dL (8.5-10.1); Potassium 3.8 mmol/L (3.5-5.1)
[2020-08-25 05:03] LABS: BUN/Creatinine Ratio 10.7; Bilirubin, Total 0.6 mg/dL (0.2-1.0); Total Protein 6.7 g/dL (6.4-8.2)
[2020-08-25] MEDS: MIDODRINE HCL 10 MG TAB PO SCH ×3 (05:22→20:00)
[2020-08-25 08:41] LABS: Eosinophils # (auto) 0 10 ^3/uL (0-0.8); Hemoglobin 7.7 g/dL (13.5-17.5); Lymphocytes # (auto) 0.3 10 ^3/uL (0.4-5.4); Monocytes # (auto) 0.6 10 ^3/uL (0-1.3); Neutrophils # (auto) 6.7 10 ^3/uL (1.6-8.6); Nucleated Red Blood Cells % 0.2 %; White Blood Cell 7.7 10^3/uL (4.4-10.8)
[2020-08-25 08:43] LABS: Basophils # (auto) 0.1 10 ^3/uL (0-0.2); Basophils % (auto) 0.7 % (0.0-2.0); Eosinophils % (auto) 0.3 % (0.0-7.0); Hematocrit 22.6 % (41.0-53.0); Lymphocytes % (auto) 3.4 % (10.0-50.0); Mean Corpuscular Hemoglobin 35.1 pg (28.0-32.0); Mean Corpuscular Hgb Conc. 34.2 g/dL (32.0-36.0); Mean Corpuscular Volume 102.6 fL (80.0-100.0); Neutrophils % (auto) 87.6 % (37.0-80.0); Red Cell Distribution Width 17.7 % (11.8-14.3)
[2020-08-25 08:55] LABS: INR 1.19 (0.9-1.15); Partial Thromboplastin Time 36.2 sec (23.0-31.2)
[2020-08-25] MEDS: NOREPINEPHRINE 8 MG/250ML KIT 250 ML IV SCH ×2 (09:27→22:34)
[2020-08-25] MEDS: AMIODARONE HCL 200 MG TAB PO SCH ×2 (09:29→22:01)
[2020-08-25] MEDS: PANTOPRAZOLE 40 MG TAB PO SCH (09:31)
[2020-08-25] MEDS: SODIUM CHLOR 0.9% PF (SALINE LOCK) 10ML VIAL/SYR IV SCH ×2 (09:31→22:00)
[2020-08-25] MEDS: ENOXAPARIN SOD 100 MG/1 ML SYRINGE SC SCH (09:32)
[2020-08-25] MEDS: VILANTEROL PO SCH (10:00)
[2020-08-25] MEDS: [UNRECOGNIZED DRUG - OTHER] PO SCH (10:00)
[2020-08-25] MEDS: UMECLIDINIUM PO SCH (10:00)
[2020-08-25] MEDS: DOPamine 1600MCG/ML D5W 250 ML IV SCH (10:15)
[2020-08-25] MEDS: DAKINS QUARTER STR 0.125% (NaHypochlorite) 473 ML TOPICAL SOL TOP SCH ×2 (13:01→22:00)
[2020-08-25] MEDS: TAMSULOSIN HYDROCHLORIDE 0.4 MG CAP PO SCH (20:00)
[2020-08-26] VITALS (83 sets, daily range): BP systolic 25–149; BP diastolic 21–76
[2020-08-26] MEDS: MEROPENEM 500MG IVPB 50 ML IV SCH ×2 (01:34→14:19)
[2020-08-26 04:31] LABS: Basophils # (auto) 0 10 ^3/uL (0-0.2); Eosinophils # (auto) 0 10 ^3/uL (0-0.8); Eosinophils % (auto) 0.3 % (0.0-7.0); Hemoglobin 7.1 g/dL (13.5-17.5); Lymphocytes # (auto) 0.2 10 ^3/uL (0.4-5.4)
[2020-08-26 04:32] LABS: Basophils % (auto) 0.5 % (0.0-2.0); Hematocrit 21.1 % (41.0-53.0); Lymphocytes % (auto) 3.6 % (10.0-50.0); Mean Corpuscular Hemoglobin 34.9 pg (28.0-32.0); Mean Corpuscular Hgb Conc. 33.8 g/dL (32.0-36.0); Mean Corpuscular Volume 103.2 fL (80.0-100.0); Monocytes # (auto) 0.5 10 ^3/uL (0-1.3); Monocytes % (auto) 8.8 % (0.0-12.0); Neutrophils # (auto) 4.5 10 ^3/uL (1.6-8.6); Neutrophils % (auto) 86.8 % (37.0-80.0); Nucleated Red Blood Cells % 0.1 %; Red Blood Cells 2.04 10^6/uL (4.5-5.90); Red Cell Distribution Width 17.9 % (11.8-14.3); White Blood Cell 5.2 10^3/uL (4.4-10.8)
[2020-08-26 04:48] LABS: Albumin 2.6 g/dL (3.4-5.0); Calcium 7.3 mg/dL (8.5-10.1); Potassium 3.6 mmol/L (3.5-5.1)
[2020-08-26 04:51] LABS: BUN/Creatinine Ratio 11.7; Bilirubin, Total 0.6 mg/dL (0.2-1.0)
[2020-08-26] MEDS: MIDODRINE HCL 10 MG TAB PO SCH ×3 (06:00→17:24)
[2020-08-26 07:26] LABS: Phosphorus 3.6 mg/dL (2.5-4.90)
[2020-08-26] MEDS: VILANTEROL PO SCH (09:32)
[2020-08-26] MEDS: [UNRECOGNIZED DRUG - OTHER] PO SCH (09:32)
[2020-08-26] MEDS: UMECLIDINIUM PO SCH (09:32)
[2020-08-26] MEDS: PANTOPRAZOLE 40 MG TAB PO SCH (09:33)
[2020-08-26] MEDS: AMIODARONE HCL 200 MG TAB PO SCH ×2 (09:33→21:04)
[2020-08-26] MEDS: DAKINS QUARTER STR 0.125% (NaHypochlorite) 473 ML TOPICAL SOL TOP SCH ×2 (09:34→21:03)
[2020-08-26] MEDS: SODIUM BICARBONATE 50ML VIAL 150 ML in D5W 5% 1,000 ML IV SCH ×2 (09:34→21:03)
[2020-08-26] MEDS: SODIUM CHLOR 0.9% PF (SALINE LOCK) 10ML VIAL/SYR IV SCH ×2 (09:36→22:26)
[2020-08-26] MEDS: PHENYLEPHRINE INJ 40 MG in SODIUM CHL 0.9% 250 ML IV SCH (09:55)
[2020-08-26] MEDS: ENOXAPARIN SOD 100 MG/1 ML SYRINGE SC SCH (10:00)
[2020-08-26] MEDS: DOPamine 1600MCG/ML D5W 250 ML IV SCH ×2 (10:15→12:58)
[2020-08-26] MEDS: TAMSULOSIN HYDROCHLORIDE 0.4 MG CAP PO SCH (17:24)
[2020-08-26 17:58] LABS: Hemoglobin 7.3 g/dL (13.5-17.5)
[2020-08-26 18:01] LABS: Hematocrit 21.4 % (41.0-53.0)
[2020-08-27] VITALS (71 sets, daily range): BP systolic 90–139; BP diastolic 33–61
[2020-08-27] MEDS: MEROPENEM 500MG IVPB 50 ML IV SCH ×2 (02:11→14:30)
[2020-08-27] MEDS: PHENYLEPHRINE INJ 40 MG in SODIUM CHL 0.9% 250 ML IV SCH ×2 (02:35→19:15)
[2020-08-27 04:39] LABS: Basophils # (auto) 0 10 ^3/uL (0-0.2); Hemoglobin 7.2 g/dL (13.5-17.5); Lymphocytes # (auto) 0.2 10 ^3/uL (0.4-5.4); Monocytes # (auto) 0.4 10 ^3/uL (0-1.3); Neutrophils # (auto) 4.6 10 ^3/uL (1.6-8.6); Red Blood Cells 2.05 10^6/uL (4.5-5.90); White Blood Cell 5.3 10^3/uL (4.4-10.8)
[2020-08-27 04:41] LABS: Basophils % (auto) 0.3 % (0.0-2.0); Eosinophils # (auto) 0.1 10 ^3/uL (0-0.8); Hematocrit 21.2 % (41.0-53.0); Lymphocytes % (auto) 3.3 % (10.0-50.0); Mean Corpuscular Hgb Conc. 33.9 g/dL (32.0-36.0); Mean Corpuscular Volume 103.4 fL (80.0-100.0); Monocytes % (auto) 7.8 % (0.0-12.0); Neutrophils % (auto) 87.6 % (37.0-80.0); Red Cell Distribution Width 17.9 % (11.8-14.3)
[2020-08-27 04:47] LABS: Albumin 2.6 g/dL (3.4-5.0); Calcium 7.3 mg/dL (8.5-10.1); Potassium 3.3 mmol/L (3.5-5.1)
[2020-08-27 04:53] LABS: BUN/Creatinine Ratio 11.2; Bilirubin, Total 0.6 mg/dL (0.2-1.0); Total Protein 6.1 g/dL (6.4-8.2)
[2020-08-27] MEDS: MIDODRINE HCL 10 MG TAB PO SCH ×3 (06:00→18:10)
[2020-08-27] MEDS ORDERED: BUMETANIDE INJECTION 12.5 MG in GIVE UN-DILUTED 0 ML IV SCH (08:30)
[2020-08-27] MEDS: SODIUM BICARBONATE 50ML VIAL 150 ML in D5W 5% 1,000 ML IV SCH ×2 (09:05→22:53)
[2020-08-27] MEDS: POTASSIUM CHL 20MEQ/100ML 100 ML IV SCH ×3 (09:21→11:30)
[2020-08-27] MEDS: SODIUM CHLOR 0.9% PF (SALINE LOCK) 10ML VIAL/SYR IV SCH ×2 (09:28→22:00)
[2020-08-27] MEDS: MULTIPLE VITAMINS W/ MINERALS TAB PO SCH (09:35)
[2020-08-27] MEDS: PANTOPRAZOLE 40 MG TAB PO SCH (09:35)
[2020-08-27] MEDS: AMIODARONE HCL 200 MG TAB PO SCH ×2 (09:35→22:00)
[2020-08-27] MEDS: ENOXAPARIN SOD 100 MG/1 ML SYRINGE SC SCH ×2 (10:00→13:15)
[2020-08-27] MEDS: UMECLIDINIUM PO SCH (10:14)
[2020-08-27] MEDS: [UNRECOGNIZED DRUG - OTHER] PO SCH (10:14)
[2020-08-27] MEDS: VILANTEROL PO SCH (10:14)
[2020-08-27] MEDS: DAKINS QUARTER STR 0.125% (NaHypochlorite) 473 ML TOPICAL SOL TOP SCH ×2 (11:00→22:00)
[2020-08-27] MEDS ORDERED: BUMETANIDE INJECTION 10 ML ONE (12:08)
[2020-08-27] MEDS ORDERED: BUMETANIDE 2.5mg/10ml (0.25 mg/ml) INJ IV ONE (12:15)
[2020-08-27] MEDS: BUMETANIDE INJECTION 12.5 MG in GIVE UN-DILUTED 0 ML IV SCH (12:23)
[2020-08-27] MEDS ORDERED: POTASSIUM EFFERVESENT TAB 25 MEQ PO ONE (13:15)
[2020-08-27] MEDS: NOREPINEPHRINE 8 MG/250ML KIT 250 ML IV SCH (14:00)
[2020-08-27] MEDS: DOPamine 1600MCG/ML D5W 250 ML IV SCH (15:32)
[2020-08-27] MEDS: TAMSULOSIN HYDROCHLORIDE 0.4 MG CAP PO SCH (18:10)
[2020-08-28] VITALS (31 sets, daily range): BP systolic 87–133; BP diastolic 31–52
[2020-08-28] MEDS ORDERED: IPRATROPIUM BROM 0.5 MG/2.5ML INH SOL NEB ONE (01:15)
[2020-08-28] MEDS ORDERED: ALBUTEROL SULF 2.5 MG/0.5ML(0.5%) NEB SOLN NEB ONE (01:15)
[2020-08-28] MEDS: MEROPENEM 500MG IVPB 50 ML IV SCH (02:00)
[2020-08-28] MEDS: MIDODRINE HCL 10 MG TAB PO SCH ×3 (05:10→20:40)
[2020-08-28 06:09] LABS: Basophils # (auto) 0 10 ^3/uL (0-0.2); Lymphocytes # (auto) 0.1 10 ^3/uL (0.4-5.4); Monocytes # (auto) 0.5 10 ^3/uL (0-1.3); Neutrophils # (auto) 4.9 10 ^3/uL (1.6-8.6); Red Blood Cells 2.07 10^6/uL (4.5-5.90); White Blood Cell 5.6 10^3/uL (4.4-10.8)
[2020-08-28 06:11] LABS: Basophils % (auto) 0.2 % (0.0-2.0); Eosinophils # (auto) 0 10 ^3/uL (0-0.8); Eosinophils % (auto) 0.8 % (0.0-7.0); Hematocrit 21.4 % (41.0-53.0); Hemoglobin 7.5 g/dL (13.5-17.5); Mean Corpuscular Hemoglobin 36.2 pg (28.0-32.0); Mean Corpuscular Hgb Conc. 34.9 g/dL (32.0-36.0); Mean Corpuscular Volume 103.7 fL (80.0-100.0); Monocytes % (auto) 8.1 % (0.0-12.0); Neutrophils % (auto) 88.9 % (37.0-80.0)
[2020-08-28] MEDS: ALBUTEROL SULF 2.5 MG/0.5ML(0.5%) NEB SOLN NEB SCH ×3 (06:11→18:25)
[2020-08-28 06:25] LABS: Potassium 3.8 mmol/L (3.5-5.1)
[2020-08-28 06:35] LABS: Albumin 2.7 g/dL (3.4-5.0); BUN/Creatinine Ratio 10.8; Bilirubin, Total 0.6 mg/dL (0.2-1.0); Calcium 7.7 mg/dL (8.5-10.1)
[2020-08-28] MEDS: BUMETANIDE INJECTION 12.5 MG in GIVE UN-DILUTED 0 ML IV SCH ×3 (06:56→22:44)
[2020-08-28] MEDS: ENOXAPARIN SOD 100 MG/1 ML SYRINGE SC SCH (08:17)
[2020-08-28] MEDS: PHENYLEPHRINE INJ 40 MG in SODIUM CHL 0.9% 250 ML IV SCH (11:55)
[2020-08-28] MEDS ORDERED: DOPamine 1600MCG/ML D5W 250 ML IV SCH (13:30)
[2020-08-28] MEDS ORDERED: metOLazone 5 MG TAB PO ONE (13:30)
[2020-08-28] MEDS: NOREPINEPHRINE 8 MG/250ML KIT 250 ML IV SCH (14:00)
[2020-08-28] MEDS: SODIUM CHLOR 0.9% PF (SALINE LOCK) 10ML VIAL/SYR IV SCH ×2 (14:51→21:57)
[2020-08-28] MEDS: UMECLIDINIUM PO SCH (14:52)
[2020-08-28] MEDS: [UNRECOGNIZED DRUG - OTHER] PO SCH (14:52)
[2020-08-28] MEDS: VILANTEROL PO SCH (14:52)
[2020-08-28] MEDS: MULTIPLE VITAMINS W/ MINERALS TAB PO SCH (14:53)
[2020-08-28] MEDS: AMIODARONE HCL 200 MG TAB PO SCH ×2 (14:53→22:00)
[2020-08-28] MEDS: DAKINS QUARTER STR 0.125% (NaHypochlorite) 473 ML TOPICAL SOL TOP SCH ×2 (14:54→22:00)
[2020-08-28] MEDS: PANTOPRAZOLE 40 MG TAB PO SCH (14:54)
[2020-08-28] MEDS: MEROPENEM 1GM IVPB 100 ML IV SCH (15:07)
[2020-08-28] MEDS: TAMSULOSIN HYDROCHLORIDE 0.4 MG CAP PO SCH (20:40)
[2020-08-29] VITALS (28 sets, daily range): BP systolic 104–134; BP diastolic 39–51
[2020-08-29] MEDS: MEROPENEM 1GM IVPB 100 ML IV SCH ×2 (01:36→14:21)
[2020-08-29] MEDS: ALBUTEROL SULF 2.5 MG/0.5ML(0.5%) NEB SOLN NEB SCH ×6 (01:49→21:50)
[2020-08-29] MEDS: PHENYLEPHRINE INJ 40 MG in SODIUM CHL 0.9% 250 ML IV SCH ×2 (04:35→21:15)
[2020-08-29 04:52] LABS: Potassium 4.1 mmol/L (3.5-5.1)
[2020-08-29 04:57] LABS: BUN/Creatinine Ratio 11.1; Calcium 7.9 mg/dL (8.5-10.1)
[2020-08-29] MEDS: MIDODRINE HCL 10 MG TAB PO SCH ×3 (06:00→17:32)
[2020-08-29] MEDS: DOPamine 1600MCG/ML D5W 250 ML IV SCH ×2 (09:15→20:06)
[2020-08-29] MEDS: SODIUM CHLOR 0.9% PF (SALINE LOCK) 10ML VIAL/SYR IV SCH ×2 (09:55→22:00)
[2020-08-29] MEDS: AMIODARONE HCL 200 MG TAB PO SCH ×2 (09:56→22:00)
[2020-08-29] MEDS: PANTOPRAZOLE 40 MG TAB PO SCH (09:57)
[2020-08-29] MEDS: MULTIPLE VITAMINS W/ MINERALS TAB PO SCH (09:57)
[2020-08-29] MEDS: metOLazone 5 MG TAB PO SCH (09:59)
[2020-08-29] MEDS: DAKINS QUARTER STR 0.125% (NaHypochlorite) 473 ML TOPICAL SOL TOP SCH ×2 (09:59→22:00)
[2020-08-29] MEDS: ENOXAPARIN SOD 100 MG/1 ML SYRINGE SC SCH (10:00)
[2020-08-29] MEDS: [UNRECOGNIZED DRUG - OTHER] PO SCH (10:02)
[2020-08-29] MEDS: UMECLIDINIUM PO SCH (10:02)
[2020-08-29] MEDS: VILANTEROL PO SCH (10:02)
[2020-08-29] MEDS: acetaZOLAMIDE 250 MG TAB PO SCH ×2 (10:05→22:00)
[2020-08-29] MEDS: NOREPINEPHRINE 8 MG/250ML KIT 250 ML IV SCH (14:00)
[2020-08-29] MEDS: BUMETANIDE INJECTION 12.5 MG in GIVE UN-DILUTED 0 ML IV SCH (17:31)
[2020-08-29] MEDS: TAMSULOSIN HYDROCHLORIDE 0.4 MG CAP PO SCH (17:33)
[2020-08-30] VITALS (24 sets, daily range): BP systolic 89–128; BP diastolic 34–68
[2020-08-30] MEDS: MEROPENEM 1GM IVPB 100 ML IV SCH ×2 (02:05→14:00)
[2020-08-30] MEDS: BUMETANIDE INJECTION 12.5 MG in GIVE UN-DILUTED 0 ML IV SCH ×2 (02:45→15:15)
[2020-08-30] MEDS ORDERED: LORazepam 2MG/ML-1ML VIAL ONE (03:05)
[2020-08-30] MEDS ORDERED: LORazepam 2MG/ML-1ML VIAL IV ONE (03:15)
[2020-08-30 05:22] LABS: BUN/Creatinine Ratio 13.2; Calcium 7.8 mg/dL (8.5-10.1)
[2020-08-30] MEDS: MIDODRINE HCL 10 MG TAB PO SCH ×3 (05:57→17:54)
[2020-08-30] MEDS: DOPamine 1600MCG/ML D5W 250 ML IV SCH ×2 (05:58→17:48)
[2020-08-30] MEDS: ALBUTEROL SULF 2.5 MG/0.5ML(0.5%) NEB SOLN NEB SCH ×6 (06:00→22:49)
[2020-08-30] MEDS ORDERED: SODIUM CHL 0.9% 1000 ML BAG XX ONE (07:00)
[2020-08-30] MEDS ORDERED: ALBUMIN 25% 100 ML IV ONE (07:00)
[2020-08-30] MEDS: SODIUM CHLOR 0.9% PF (SALINE LOCK) 10ML VIAL/SYR IV SCH ×2 (09:40→20:45)
[2020-08-30] MEDS ORDERED: MORPHINE SULFATE INJECTION 2 MG/ML SYRG IV PRN (09:45)
[2020-08-30] MEDS ORDERED: MORPHINE SULFATE INJECTION 2 MG/ML SYRG ONE (09:46)
[2020-08-30] MEDS: UMECLIDINIUM PO SCH (09:51)
[2020-08-30] MEDS: [UNRECOGNIZED DRUG - OTHER] PO SCH (09:51)
[2020-08-30] MEDS: VILANTEROL PO SCH (09:51)
[2020-08-30] MEDS: acetaZOLAMIDE 250 MG TAB PO SCH (09:55)
[2020-08-30] MEDS: AMIODARONE HCL 200 MG TAB PO SCH ×2 (09:55→20:45)
[2020-08-30] MEDS: metOLazone 5 MG TAB PO SCH (09:56)
[2020-08-30] MEDS: PANTOPRAZOLE 40 MG TAB PO SCH (09:56)
[2020-08-30] MEDS: MULTIPLE VITAMINS W/ MINERALS TAB PO SCH (09:56)
[2020-08-30] MEDS: DAKINS QUARTER STR 0.125% (NaHypochlorite) 473 ML TOPICAL SOL TOP SCH ×2 (10:00→20:45)
[2020-08-30] MEDS: PHENYLEPHRINE INJ 40 MG in SODIUM CHL 0.9% 250 ML IV SCH (13:55)
[2020-08-30] MEDS: NOREPINEPHRINE 8 MG/250ML KIT 250 ML IV SCH ×2 (14:00→21:00)
[2020-08-30] MEDS: TAMSULOSIN HYDROCHLORIDE 0.4 MG CAP PO SCH (17:54)
[2020-08-30] MEDS ORDERED: EPOETIN ALFA 10,000 UNIT/1 ML VIAL SC ONE (21:00)
[2020-08-31] VITALS (18 sets, daily range): BP systolic 45–104; BP diastolic 30–43
[2020-08-31] MEDS: MEROPENEM 1GM IVPB 100 ML IV SCH (02:00)
[2020-08-31] MEDS: BUMETANIDE INJECTION 12.5 MG in GIVE UN-DILUTED 0 ML IV SCH (03:45)
[2020-08-31 03:51] LABS: Calcium 7.8 mg/dL (8.5-10.1); Potassium 4.4 mmol/L (3.5-5.1)
[2020-08-31] MEDS: DOPamine 1600MCG/ML D5W 250 ML IV SCH (04:39)
[2020-08-31] MEDS: MIDODRINE HCL 10 MG TAB PO SCH (05:39)
[2020-08-31] MEDS: ALBUTEROL SULF 2.5 MG/0.5ML(0.5%) NEB SOLN NEB SCH (06:00)
[2020-08-31] MEDS ORDERED: ALBUMIN 25% 100 ML IV ONE (06:30)
[2020-08-31] MEDS: PHENYLEPHRINE INJ 40 MG in SODIUM CHL 0.9% 250 ML IV SCH ×2 (06:35→10:34)
[2020-08-31] MEDS: SODIUM CHLOR 0.9% PF (SALINE LOCK) 10ML VIAL/SYR IV SCH (09:51)
[2020-08-31] MEDS: [UNRECOGNIZED DRUG - OTHER] PO SCH (09:51)
[2020-08-31] MEDS: VILANTEROL PO SCH (09:51)
[2020-08-31] MEDS: UMECLIDINIUM PO SCH (09:51)
[2020-08-31] MEDS: AMIODARONE HCL 200 MG TAB PO SCH (09:52)
[2020-08-31] MEDS: MULTIPLE VITAMINS W/ MINERALS TAB PO SCH (09:53)
[2020-08-31] MEDS: metOLazone 5 MG TAB PO SCH (09:53)
[2020-08-31] MEDS: PANTOPRAZOLE 40 MG TAB PO SCH (09:53)
[2020-08-31] MEDS: DAKINS QUARTER STR 0.125% (NaHypochlorite) 473 ML TOPICAL SOL TOP SCH (09:53)
[2020-08-31] MEDS ORDERED: MEROPENEM 500MG IVPB 50 ML IV SCH (14:00)
== END 2020-08-31 16:18 | DRG 871 ==
LOC: EDBD 00:36 → ER 00:44 → OVERFLOW 00:45 → CATH ICU 08-12 18:30
PROVIDERS: ADMIT Nurse Practitioner; ATTEND Family Medicine
PROC: 30233N1 Transfusion of Nonautologous Red Blood Cells into Peripheral Vein, Percutaneous Approach (ICD-10-PCS; principal; 2020-08-08)
PROC: 0W993ZZ Drainage of Right Pleural Cavity, Percutaneous Approach (ICD-10-PCS; 2020-08-17)
PROC: 02HV33Z Insertion of Infusion Device into Superior Vena Cava, Percutaneous Approach (ICD-10-PCS; 2020-08-21)
PROC: 5A09357 Assistance with Respiratory Ventilation, Less than 24 Consecutive Hours, Continuous Positive Airway Pressure (ICD-10-PCS; 2020-08-21)
PROC: 5A09357 Assistance with Respiratory Ventilation, Less than 24 Consecutive Hours, Continuous Positive Airway Pressure (ICD-10-PCS; 2020-08-21)
PROC: 5A1D70Z Performance of Urinary Filtration, Intermittent, Less than 6 Hours Per Day (ICD-10-PCS; 2020-08-22)
PROC: 4A023N6 Measurement of Cardiac Sampling and Pressure, Right Heart, Percutaneous Approach (ICD-10-PCS; 2020-08-23)
PROC: 04HY32Z Insertion of Monitoring Device into Lower Artery, Percutaneous Approach (ICD-10-PCS; 2020-08-23)
PROC: 4A133B1 Monitoring of Arterial Pressure, Peripheral, Percutaneous Approach (ICD-10-PCS; 2020-08-23)
PROC: 4A133J1 Monitoring of Arterial Pulse, Peripheral, Percutaneous Approach (ICD-10-PCS; 2020-08-23)
PROC: 5A1D70Z Performance of Urinary Filtration, Intermittent, Less than 6 Hours Per Day (ICD-10-PCS; 2020-08-24)
PROC: 5A1935Z Respiratory Ventilation, Less than 24 Consecutive Hours (ICD-10-PCS; 2020-08-27)
PROC: 0BH17EZ Insertion of Endotracheal Airway into Trachea, Via Natural or Artificial Opening (ICD-10-PCS; 2020-08-27)
PROC: 0W993ZZ Drainage of Right Pleural Cavity, Percutaneous Approach (ICD-10-PCS; 2020-08-28)
PROC: 5A09457 Assistance with Respiratory Ventilation, 24-96 Consecutive Hours, Continuous Positive Airway Pressure (ICD-10-PCS; 2020-08-28)
PROC: 5A1D70Z Performance of Urinary Filtration, Intermittent, Less than 6 Hours Per Day (ICD-10-PCS; 2020-08-30)
DX: A41.9 Sepsis, unspecified organism (principal); I50.33 Acute on chronic diastolic (congestive) heart failure; E43 Unspecified severe protein-calorie malnutrition; J18.9 Pneumonia, unspecified organism; J96.21 Acute and chronic respiratory failure with hypoxia; N17.0 Acute kidney failure with tubular necrosis; L03.116 Cellulitis of left lower limb; E87.1 Hypo-osmolality and hyponatremia; I82.612 Acute embolism and thrombosis of superficial veins of left upper extremity; I13.0 Hypertensive heart and chronic kidney disease with heart failure and stage 1 through stage 4 chronic kidney disease, or unspecified chronic kidney disease; J44.0 Chronic obstructive pulmonary disease with (acute) lower respiratory infection; R57.9 Shock, unspecified; L03.115 Cellulitis of right lower limb; I48.92 Unspecified atrial flutter; D68.59 Other primary thrombophilia; Z66 Do not resuscitate; L30.9 Dermatitis, unspecified; I27.20 Pulmonary hypertension, unspecified; Z20.822 Contact with and (suspected) exposure to COVID-19; I49.5 Sick sinus syndrome; I46.9 Cardiac arrest, cause unspecified; D63.8 Anemia in other chronic diseases classified elsewhere; E78.5 Hyperlipidemia, unspecified; I48.91 Unspecified atrial fibrillation; I83.93 Asymptomatic varicose veins of bilateral lower extremities; N18.32 Chronic kidney disease, stage 3b; I35.0 Nonrheumatic aortic (valve) stenosis; E66.01 Morbid (severe) obesity due to excess calories; S81.802A Unspecified open wound, left lower leg, initial encounter; S81.801A Unspecified open wound, right lower leg, initial encounter; E87.6 Hypokalemia; I25.10 Atherosclerotic heart disease of native coronary artery without angina pectoris; N40.0 Benign prostatic hyperplasia without lower urinary tract symptoms; I27.21 Secondary pulmonary arterial hypertension; E78.00 Pure hypercholesterolemia, unspecified; W01.0XXA Fall on same level from slipping, tripping and stumbling without subsequent striking against object, initial encounter; Y93.89 Activity, other specified; Y92.002 Bathroom of unspecified non-institutional (private) residence as the place of occurrence of the external cause; Y99.9 Unspecified external cause status; Z79.01 Long term (current) use of anticoagulants; Z80.9 Family history of malignant neoplasm, unspecified; I25.2 Old myocardial infarction; Z82.49 Family history of ischemic heart disease and other diseases of the circulatory system; Z95.0 Presence of cardiac pacemaker; Z95.1 Presence of aortocoronary bypass graft; Z95.2 Presence of prosthetic heart valve; Z91.81 History of falling; Y99.8 Other external cause status; Z68.27 Body mass index [BMI] 27.0-27.9, adult
CPT/HCPCS: 10022; 32555; 36415; 36569; 36600; 71045; 76604; 76700; 76775; 76942; 80048; 80053; 80074; 80076; 81001; 82533; 82570; 82728; 82805; 82962; 83036; 83540; 83550; 83605; 83735; 83880; 84100; 84300; 84443; 84484; 85014; 85018; 85025; 85610; 85730; 86850; 86900; 86901; 86920; 87040; 87070; 87077; 87081; 87186; 87205; 87426; 89051; 90935; 93306; 93571; 93926; 93970; 93971; 94640; 94660; 96365; 96366; 96367; 96372; 97110; 97163; 97530; 99152; 99153; C1751; G0378; J0696; J0885; J2185; J2250; J2543; J3430; J3480; J3490; P9047; Q9967